=== PATIENT | female | born 1950 | race African-American/Black ===

== ENCOUNTER → 2020-08-09 10:17 | Outpatient (BNVA) | payer MEDICARE, SELFPAY | PROVIDERS: PCP Physician Assistant; Visit Provider Anesthesiology | DX: M96.1 Postlaminectomy syndrome, not elsewhere classified (principal); M46.1 Sacroiliitis, not elsewhere classified | CPT/HCPCS: 99204 ==

== ENCOUNTER 2020-09-01 09:36 | Outpatient (REF) | payer MEDICARE, SELFPAY ==
--- NOTE | 2020-09-01 09:53 | XR_ITS ---
EXAMINATION: XR FEMUR, RIGHT CLINICAL INFORMATION: 69-year-old female patient with other specified disorder of bone, thigh. M89.8x5 COMPARISON: None recent TECHNIQUE: AP and lateral views of the right femur were obtained. 4 exposures. FINDINGS: The bones and soft tissues are normal. No fracture. No osseous lesions. There is chondrocalcinosis in the hip and knee joints. Scattered vascular calcifications are present. XR/XR femur RT 2V IMPRESSION: Chondrocalcinosis.
== END 2020-09-01 09:37 | disposition home or self-care (01) ==
LOC: HO.XRAY 09:36
PROVIDERS: PCP Physician Assistant; Visit Provider Physician Assistant
DX: M25.551 Pain in right hip (principal); M89.8X5 Other specified disorders of bone, thigh; G89.29 Other chronic pain
CPT/HCPCS: 73552

== ENCOUNTER 2020-09-22 10:46 | Outpatient (REF) | payer MEDICARE, SELFPAY ==
[2020-09-22 11:53] LABS: Erythrocyte Sedimentation Rate 4 MM/HR (0-20)
[2020-09-24 08:52] LABS: Syphilis Screen Nonreactive (Nonreactive)
[2020-09-24 09:56] LABS: Vitamin B12 516 pg/mL (200-900)
== END 2020-09-22 10:47 | disposition home or self-care (01) ==
LOC: HO.LAB 10:46
PROVIDERS: PCP Physician Assistant; Visit Provider Psychiatry & Neurology Neurology
DX: G93.40 Encephalopathy, unspecified (principal)
CPT/HCPCS: 36415; 82607; 85652; 86780

== ENCOUNTER 2020-09-25 06:59 | Outpatient (REF) | payer MEDICARE, SELFPAY ==
--- NOTE | 2020-09-25 07:32 | FL_ITS ---
EXAMINATION: XR FLUOROSCOPY WITH IMAGES CLINICAL INFORMATION: Sacroiliitis COMPARISON: None. TECHNIQUE: Fluoroscopy performed by Lena De Guzman Fluoroscopy time: 0.1 minutes DAP: 0.8 Gycm2 Images: 1 FINDINGS: Image demonstrates needle placement over the right inferior sacroiliac joint. There are postsurgical changes to the visualized lower lumbar spine. FL/FL guidance in treatment room IMPRESSION: Fluoroscopy guidance for right sacroiliac joint injection.
== END 2020-09-25 07:00 | disposition home or self-care (01) ==
LOC: HO.RADIR 06:59
PROVIDERS: Visit Provider Anesthesiology
DX: M46.1 Sacroiliitis, not elsewhere classified (principal); M96.1 Postlaminectomy syndrome, not elsewhere classified
CPT/HCPCS: 27096; J3300; Q9967

== ENCOUNTER 2020-10-03 10:23 | Outpatient (REF) | payer MEDICARE, SELFPAY ==
--- NOTE | 2020-10-03 09:40 | MR_ITS ---
EXAMINATION: MR BRAIN WITHOUT CONTRAST CLINICAL INFORMATION: Encephalopathy. COMPARISON: CT head from 08/09/2009. TECHNIQUE: MRI of the brain was obtained using routine sequences without contrast. FINDINGS: No focal restricted diffusion is demonstrated to suggest acute or subacute cerebral ischemia. No evidence of acute hemorrhagic products on heme-sensitive imaging. Punctate foci of susceptibility artifact within the left thalamus and left occipital lobe consistent with chronic petechial microhemorrhage. Scattered periventricular and deep white matter T2 FLAIR hyperintensities consistent with moderate underlying microangiopathy. Proportional prominence of the ventricles and sulcal spaces without evidence of obstructive hydrocephalus. No abnormal mass effect. No midline shift. Normal appearance of the pituitary gland. No abnormalities of the posterior fossa with normal appearance of the brainstem and cerebellum. Normal positioning of the cerebellar tonsils. Normal arterial and venous vascular flow voids are present. Normal, homogeneous marrow signal. Partially visualized anterior fusion of C5-C6. No signal abnormalities within the paranasal sinuses or mastoids. Chronic mild prominence of the adenoids. Bilateral lens extractions. MR/MR head/brain wo con IMPRESSION: 1. No acute intracranial abnormalities. 2. Moderate underlying microangiopathy and generalized cerebral volume loss.
== END 2020-10-03 10:24 | disposition home or self-care (01) ==
LOC: HO.MRI 10:23
PROVIDERS: Visit Provider Psychiatry & Neurology Neurology
DX: G93.40 Encephalopathy, unspecified (principal)
CPT/HCPCS: 70551

== ENCOUNTER → 2020-10-31 11:59 | Outpatient (BNVA) | payer MEDICARE, SELFPAY | PROVIDERS: PCP Physician Assistant; Visit Provider Anesthesiology | DX: M17.11 Unilateral primary osteoarthritis, right knee (principal); M96.1 Postlaminectomy syndrome, not elsewhere classified; M46.1 Sacroiliitis, not elsewhere classified | CPT/HCPCS: 99212 ==

== ENCOUNTER 2020-11-01 12:07 | Outpatient (REF) | payer MEDICARE, SELFPAY | END 2020-11-01 12:08 | disposition home or self-care (01) | LOC: HO.LAB 12:07 | PROVIDERS: PCP Physician Assistant; Visit Provider Internal Medicine | DX: Z20.822 Contact with and (suspected) exposure to COVID-19 (principal) | CPT/HCPCS: 36415; C9803; U0003 ==

== ENCOUNTER 2020-12-04 09:28 | Outpatient (REF) | payer MEDICARE, SELFPAY | END 2020-12-04 09:29 | disposition home or self-care (01) | LOC: HO.MRI 09:28 | PROVIDERS: Visit Provider Physician Assistant | DX: M54.16 Radiculopathy, lumbar region (principal) | CPT/HCPCS: 72148 ==

== ENCOUNTER 2020-12-24 08:08 | Outpatient (REF) | payer MEDICARE, SELFPAY ==
--- NOTE | ~2020-12-24 | US_ITS ---
EXAMINATION: US ABDOMEN AORTA CLINICAL INFORMATION: AAA. COMPARISON: None. TECHNIQUE: Routine transabdominal imaging of the abdominal ultrasound is performed. FINDINGS: The proximal abdominal aorta atherosclerotic plaque with shadowing in the proximal abdominal aorta. Proximal abdominal aorta measures 2.3 x 2.6 cm in AP and transverse dimension. Mid abdominal aorta measures 2.4 x 2.4 cm in AP and transverse dimension. Distal abdominal aorta measures 2.6 x 2.6 cm in AP and transverse dimension. Peak systolic velocity measures 65 cm/second. The right common iliac artery measures 1.0 cm measures 1.0 cm in AP and transverse dimension. The left common iliac artery measures 1.3 x 1.1 cm in AP and transverse dimension. US/US abdominal aortic aneurysm IMPRESSION: Mild aneurysmal dilatation of distal abdominal aorta measuring 2.6 cm. Hard atherosclerotic plaque seen in the proximal abdominal aorta.
== END 2020-12-24 08:09 | disposition home or self-care (01) ==
LOC: HO.US 08:08
PROVIDERS: PCP Physician Assistant; Visit Provider Physician Assistant
DX: I71.4 Abdominal aortic aneurysm, without rupture (principal)
CPT/HCPCS: 76706

== ENCOUNTER 2023-02-03 06:21 | Outpatient (REF) | payer OTHER, SELFPAY ==
[2023-02-03 07:59] LABS: Hematocrit 38.3 % (37.0-47.0); Hemoglobin 11.5 g/dl (12.0-16.0); Mean Corpuscular Hemoglobin 23.5 pg (27.0-33.0); Mean Corpuscular Volume 78.3 fL (80.0-98.0); Mean Platelet Volume 10.4 fL (9.4-12.3); Platelet Count 214 X10*3/uL (160-400); Red Blood Count 4.89 X10*6/uL (4.20-5.50); Red Cell Distribution Width 15.5 % (11.0-16.0)
[2023-02-03 08:22] LABS: Estimated Average Glucose 120 mg/dL; Hemoglobin A1c % 5.8 %
[2023-02-03 08:37] LABS: Alanine Aminotransferase 25 U/L (0-31); Alkaline Phosphatase 90 U/L (39-117); Anion Gap 12 (12-20); Aspartate Amino Transferase 29 U/L (5-31); Bilirubin Direct 0.1 mg/dL (0.0-0.5); Bilirubin Total 0.4 mg/dL (0.0-1.0); Blood Urea Nitrogen 13 mg/dL (9-16); Calcium 9.1 mg/dL (8.4-10.2); Carbon Dioxide 28 mmol/L (22-29); Chloride 106 mmol/L (96-108); Cholesterol 207 mg/dL; Estimated Glomerular Filt Rate > 60; Glucose Fasting 84 mg/dL (60-99); HDL Cholesterol 55 mg/dL; LDL Cholesterol Calculated 131 mg/dl; Potassium 4.1 mmol/L (3.3-5.1); Sodium 142 mmol/L (135-145); Triglycerides 108 mg/dL
[2023-02-03 08:54] LABS: TSH reflex Free T4 1.31 uIU/mL (0.32-4.0)
[2023-02-05 19:53] LABS: TS Negative Control Passed; TS Panel A 0; TS Panel B 1; TS Positive Control Passed; TSpotTB Negative (Negative)
== END 2023-02-03 06:22 | disposition home or self-care (01) ==
LOC: HO.LAB 06:21
PROVIDERS: PCP Physician Assistant; Visit Provider Physician Assistant
DX: Z13.1 Encounter for screening for diabetes mellitus (principal); Z11.1 Encounter for screening for respiratory tuberculosis; I10 Essential (primary) hypertension; R73.03 Prediabetes
CPT/HCPCS: 36415; 80053; 80061; 80076; 82248; 83036; 84443; 85027; 86481

== ENCOUNTER 2023-03-31 06:27 | Outpatient (REF) | payer OTHER, SELFPAY ==
[2023-03-31 07:33] LABS: Hematocrit 41.5 % (37.0-47.0); Hemoglobin 12.4 g/dl (12.0-16.0); Mean Corpuscular HGB Conc 29.9 g/dl (31.0-35.0); Mean Corpuscular Hemoglobin 23.6 pg (27.0-33.0); Mean Platelet Volume 10.2 fL (9.4-12.3); Platelet Count 205 X10*3/uL (160-400); Red Blood Count 5.25 X10*6/uL (4.20-5.50); Red Cell Distribution Width 14.5 % (11.0-16.0); White Blood Count 6.1 X10*3/uL (4.8-10.8)
[2023-03-31 08:11] LABS: Anion Gap 14 (12-20); Blood Urea Nitrogen 16 mg/dL (9-16); Calcium 9.9 mg/dL (8.4-10.2); Carbon Dioxide 28 mmol/L (22-29); Chloride 106 mmol/L (96-108); Estimated Glomerular Filt Rate > 60; Glucose Random 96 mg/dL (60-115); Iron 100 mcg/dL (30-160); Percent Iron Saturation 29 % (15-50); Potassium 4.8 mmol/L (3.3-5.1); Sodium 143 mmol/L (135-145); Total Iron Binding Capacity 342 mcg/dL (228-428); Unsaturated Iron Binding 242 ug/dL
[2023-03-31 08:30] LABS: TSH reflex Free T4 0.95 uIU/mL (0.32-4.0)
[2023-03-31 09:40] LABS: Creatinine Urine 24.72 mg/dL; Microalbum/Creatinine Ratio Ur 109.2 ug/mg cr
== END 2023-03-31 06:28 | disposition home or self-care (01) ==
LOC: HO.LAB 06:27
PROVIDERS: PCP Physician Assistant; Visit Provider Physician Assistant
DX: D50.9 Iron deficiency anemia, unspecified (principal); I10 Essential (primary) hypertension
CPT/HCPCS: 36415; 80048; 82043; 83540; 84443; 85027

== ENCOUNTER 2023-06-17 11:35 | Outpatient (AMB) | payer OTHER, SELFPAY ==
[2023-06-17 11:36] VITALS: BP 132/80; PULSE 92; O2SAT 97; BMI 21.9
--- NOTE | 2023-06-17 11:36 | A.OFFPC_ITS ---
Vital Signs 06/17/23 11:36 Height 5 ft 1 in Weight 116 lb BMI 21.9 BP 132/80 Blood Pressure Location Lt brachial Position Sitting Pulse 92 Pulse Source Pulse Oximeter Temp Source Skin Pulse Oximetry (%) 97 Oxygen Delivery Method Room Air Intake Visit Reasons: f/u not eating Sales Management Intern Required: Yes Sales Management Intern Language: French Allergies yellow dye [Yellow Dye] Allergy (Severe, Verified 06/17/23 11:46) YELLOW #5 THROAT CLOSES ibuprofen [From Motrin] Allergy (Unknown, Verified 06/17/23 11:46) SWELL THROAT [facility] #[id number] Allergy (Severe, Uncoded 06/17/23 11:46) ORANGE #8 DYE THROAT CLOSES Medication List - Last Reconciled 06/17/23 by PAUL Stauffer acetaminophen ER (Mapap Arthritis Pain) 650 mg PO Q12H ciclopirox 0.77% 1 appl topical BID 4 weeks diclofenac sodium 75 mg PO BID PRN diclofenac sodium 1% 2 grams topical QID 30 days famotidine 20 mg PO BEDTIME 30 days food supplemt, lactose-reduced (Ensure Complete) 1 ea PO DAILY PRN 30 days gabapentin 800 mg PO BID 90 days hydroxyzine HCl 25 mg PO BID melatonin 10 mg PO BEDTIME 90 days mirtazapine 30 mg PO BEDTIME 90 days nystatin 1 appl topical TID oxybutynin chloride ER 5 mg PO DAILY quetiapine 25 mg PO BID 90 days tramadol 50 mg PO BID PRN 7 days Tobacco use date assessed: 06/17/23 Fall risk assessment: No Falls in past year Last assessed Fall Risk: 06/17/23 HPI f/u not eating HPI Details Patient is a 72-year-old female who presents today accompanied by her son for not eating for the past 1 month or even more than that. Patient of LUIS EFRNANDO German. medical history significant for anxiety, osteoarthritis, hypertension, GERD, malnutrition, insomnia, dementia-followed by Neurology among others. Son reports that patient does not want to eat, reports patient does not have appetite, reports that patient throws food and spits out foot. Son reports giving his mother ensure and she drinks usually all of it. Patient goes to daycare. Son reports that daycare told him that she eats there, although son does not think so. Blood work 03/2023 with no acute findings. Patient with intermittent diarrhea. Son reports that mother used to be 134 lb, and today she is 116 lb. Patient is a French-speaking and Marielos was helping with interpretation. They requesting prescription for Ensure.. [facility] Medical History Aneurysm of infrarenal abdominal aorta Onychomycosis Osteoarthritis of right knee Postlaminectomy syndrome Surgical History H/O arthroscopy of shoulder H/O cervical spine surgery H/O lumbosacral spine surgery No pertinent past surgical history Family History Father No problems noted. Mother No problems noted. Social History Housing: House Alcohol intake: never Patient Tobacco Use Status: Former Tobacco user Quit Date: 2021 Cigarettes Per Day: 5 e-Cigarette/Vaping Use: Never Used Second Hand Smoke Exposure: No service: No Current occupational status: disabled Cognitive needs: Yes (cane, walker) Hearing needs: No Vision needs: Yes (glasses) Questionnaire Thrive Questionnaire Date Thrive assessed: 01/19/23 AUDIT C Alcohol Use Questionnaire (AUDIT-C) 1. How often do you have a drink containing alcohol?: Never 3. How often do you have six or more drinks on one occasion?: Never Total Score: 0 Score Reviewed/Action Taken: No JERMAINE-7 AMB Questionnaire JERMAINE-7 Date JERMAINE - 7 assessed: 01/19/23 Source: Developed by Drs. Valentin Khan, Camryn Parry, Teo Quiles and colleagues, with an educational ebonie from [employer]. Review of Systems Const Unobtainable due to mental condition and Unobtainable due to mental status GI Reports diarrhea (Intermittent per son) Physical exam (Primary Care) Vital Signs: Last Vital Signs Pulse 92 06/17/23 11:36 BP 132/80 06/17/23 11:36 Pulse Ox 97 06/17/23 11:36 Oxygen Delivery Method Room Air 06/17/23 11:36 BMI result Body Mass Index 21.9 Tobacco/Smoking Status: Tobacco use Status Tobacco use date assessed 06/17/23 06/17/23 11:37 Patient Tobacco Use Status Former Tobacco user 06/17/23 11:37 e-Cigarette/Vaping Use Never Used 06/17/23 11:37 Thrive Assessment: Date of Thrive Assessment Date Thrive assessed 01/19/23 06/17/23 11:37 Const General: cooperative and no acute distress Orientation/consciousness: oriented to person HENMT Head: Yes normocephalic and Yes atraumatic Mouth: oropharynx normal and moist mucous membranes Throat: Yes posterior oropharynx normal Eyes General: appearance normal, both eyes and all related structures Neck Neck: Yes normal visual inspection, Yes full ROM and Yes no lymphadenopathy Resp Effort & Inspection: normal respiratory effort and able to speak in complete sentences Auscultation: clear to auscultation bilaterally, no crackles, no rales, no rhonchi and no wheezes Cardio Rate: regular rate Rhythm: regular rhythm Heart sounds: S1 normal heart sound present and S2 normal heart sound present GI Palpation (GI): Soft to palpation, not firm, nontender, no guarding, not rigid and no hepatosplenomegaly Auscultation: normal bowel sounds Skin General skin exam: no rashes or lesions noted Neuro General: oriented to person Extrem General: Yes full ROM and No edema Assessment and Plan Assessment & Plan (1) Decreased appetite: Code(s): R63.0 - Anorexia Plan: Patient with decreased appetite and spitting out food for the past some time worse in the past month. Physical exam with no acute findings. Blood work 03/2023 with no acute findings. Will provide with Ensure prescription daily. Keep appointment with PCP as scheduled or follow-up sooner as needed. Agreed with the plan. Medications: New food supplemt, lactose-reduced (Ensure oral liquid) 1 ea PO DAILY 30 days 5,688 mL 1RF R63.0 - Anorexia Coding Level of Care Code Est Pt Level 3 (33624) Diagnoses Decreased appetite R63.0
== END 2023-06-17 12:03 | disposition home or self-care (01) ==
PROVIDERS: PCP Physician Assistant; Visit Provider Nurse Practitioner Family
DX: R63.0 Anorexia (principal)
CPT/HCPCS: 99213

== ENCOUNTER 2023-07-22 08:46 | Outpatient (AMB) | payer MEDICARE, SELFPAY ==
[2023-07-22 09:06] VITALS: BP 182/88; PULSE 80; RESP 17; O2SAT 98; BMI 21.3
--- NOTE | 2023-07-22 09:06 | A.OFFPC_ITS ---
Vital Signs 07/22/23 09:06 07/22/23 09:31 Height 5 ft 1 in Weight 113 lb BMI 21.3 BP 182/88 H 150/78 H Blood Pressure Location Lt brachial Position Sitting Respiration 17 Pulse 80 Pulse Source Pulse Oximeter Pulse Oximetry (%) 98 Oxygen Delivery Method Room Air Intake Visit Reasons: f/u HTN Intake Note: Patient is here to follow up on HTN. Pt has an ongoing back and abdominal pain low appetite and chronic diarrhea for two months. Son is requesting Ensure lactose free. Lithographed Plate Inspector Required: Yes Lithographed Plate Inspector Language: Luxembourgish Accompanied by: Son Allergies yellow dye [Yellow Dye] Allergy (Severe, Verified 07/22/23 09:18) YELLOW #5 THROAT CLOSES ibuprofen [From Motrin] Allergy (Unknown, Verified 07/22/23 09:18) SWELL THROAT [facility] #[id number] Allergy (Severe, Uncoded 07/22/23 09:09) ORANGE #8 DYE THROAT CLOSES Medication List - Last Reconciled 07/22/23 by Jose German PA-C acetaminophen ER (Mapap Arthritis Pain) 650 mg PO Q12H ciclopirox 0.77% 1 appl topical BID 4 weeks diclofenac sodium 75 mg PO BID PRN diclofenac sodium 1% 2 grams topical QID 30 days famotidine 20 mg PO BEDTIME 30 days food supplemt, lactose-reduced (Ensure oral liquid) 1 ea PO DAILY 30 days food supplemt, lactose-reduced (Ensure Complete) 1 ea PO DAILY PRN 30 days gabapentin 800 mg PO BID 90 days hydroxyzine HCl 25 mg PO BID melatonin 10 mg PO BEDTIME 90 days mirtazapine 30 mg PO BEDTIME 90 days nystatin 1 appl topical TID oxybutynin chloride ER 5 mg PO DAILY quetiapine 25 mg PO BID 90 days tramadol 50 mg PO BID PRN 7 days Tobacco use date assessed: 06/17/23 Fall risk assessment: No Falls in past year Last assessed Fall Risk: 07/22/23 Dental Screening Dental Screen Date: 07/22/23 Did you have a dental visit in the last 12 months?: Yes Did you have a dental problem in the last 6 months where you did not have access to dental care?: No Was dental information given to patient?: Patient has dentist HPI f/u HTN HPI Details Patient is a 72-year-old female here today for follow-up visit.? Patient has a past medical history significant for lumbar disc disease, infrarenal abdominal aortic aneurysm,? hypertension, smoker mild cognitive impairment. Today presents with her son Concern--> reports having water diarrhea over the last 6 weeks. Has noted some weight loss. Reports having dark stools and some epigastric pain. Has been using loperamide without much relief of her diarrhea. PLAN: Will start PPI therapy and stop NSAID. Send for labs and urine. CHRONIC MEDICAL CONDITIONS--> . Dementia:? Patient has followed up with Neurology was started on antidepressant medication..? Currently lives at home with her sons whom take care of her. Has started using melatonin 10 mg at night with good effect on inducing sleep. Lumbar spine pain:? Has chronic lumbar spine pain, has history of lumbar repair with hardware. ? Patient's most recent MRI of lumbar spine showing multilevel lumbar disc disease and incidental finding of an infrarenal abdominal aortic aneurysm. Osteoarthritis:? Continues with Tylenol arthritis for her arthritic pain.? Does use tramadol 50 mg on a p.r.n. basis for moderate to severe pain. Again stop NSAID due to signs symptoms of epigastric discomfort PFSH Medical History Aneurysm of infrarenal abdominal aorta Onychomycosis Osteoarthritis of right knee Postlaminectomy syndrome Surgical History H/O arthroscopy of shoulder H/O lumbosacral spine surgery H/O cervical spine surgery No pertinent past surgical history Family History Father No problems noted. Mother No problems noted. Social History Housing: House Alcohol intake: never Patient Tobacco Use Status: Former Tobacco user Quit Date: 2021 Cigarettes Per Day: 5 e-Cigarette/Vaping Use: Never Used Second Hand Smoke Exposure: No service: No Current occupational status: disabled Cognitive needs: Yes (cane, walker) Hearing needs: No Vision needs: Yes (glasses) Questionnaire Thrive Questionnaire Date Thrive assessed: 01/19/23 JERMAINE-7 AMB Questionnaire JERMAINE-7 Date JERMAINE - 7 assessed: 01/19/23 Source: Developed by Drs. Valentin Khan, Camryn Parry, Teo Quiles and colleagues, with an educational ebonie from [employer]. Review of Systems Const Denies headache(s) Eyes Denies loss of vision ENT Denies vertigo, Denies dizziness, Denies headache(s) and Denies sore throat Card Denies chest pain, Denies leg edema and Denies lightheadedness Resp Denies cough, Denies hemoptysis and Denies wheezing GI Reports abdominal pain, Reports melena, Reports diarrhea and Reports loose stools Denies urinary frequency, Denies dysuria and Denies urinary urgency Musc Denies arthralgias, Denies joint swelling, Denies numbness and Denies tingling Neuro Denies Abnormal speech present, Denies behavioral changes, Denies vertigo, Denies dizziness, Denies headache(s), Denies loss of vision, Denies memory loss, Denies numbness and Denies tingling Psych Denies anxiety, Denies behavioral changes, Denies depression, Denies memory loss and Denies panic attacks [place]/Lymph Denies easy bleeding and Denies easy bruising Aller/Immun Denies wheezing Physical exam (Primary Care) Vital Signs: Last Vital Signs Pulse 80 07/22/23 09:06 Resp 17 07/22/23 09:06 BP 150/78 H 07/22/23 09:31 Pulse Ox 98 07/22/23 09:06 Oxygen Delivery Method Room Air 07/22/23 09:06 BMI result Body Mass Index 21.3 Tobacco/Smoking Status: Tobacco use Status Tobacco use date assessed 06/17/23 07/22/23 09:10 Patient Tobacco Use Status Former Tobacco user 07/22/23 09:10 e-Cigarette/Vaping Use Never Used 07/22/23 09:10 Thrive Assessment: Date of Thrive Assessment Date Thrive assessed 01/19/23 07/22/23 09:10 Const Other: Noted some weight loss since last office visit General: healthy appearing, no acute distress, alert and awake Nutritional Appearance: well nourished Orientation/consciousness: oriented to person, oriented to place and oriented to time HENMT Ears: TM's normal bilaterally General nose exam: Normal nasal mucous membranes and turbinates present Eyes Conjunctivae: conjunctivae normal Sclerae: sclerae normal Pupils: Equal, round and reactive pupils present Neck Neck: Yes no lymphadenopathy and Yes no JVD Thyroid: Thyroid normal Carotids: no bruits Resp Effort & Inspection: normal respiratory effort and not tachypneic Auscultation: no crackles, no rales, no rhonchi and no wheezes Cardio Rate: regular rate Rhythm: regular rhythm Heart sounds: no murmurs and normal S1 and S2 GI Palpation (GI): Tenderness to palpation present (GI) in the epigastrum Auscultation: normal bowel sounds Skin General skin exam: no rashes or lesions noted and dry skin Neuro General: oriented to person, oriented to place and oriented to time Cranial nerves: Yes Equal, round and reactive pupils present Speech: No Abnormal speech present Gait exam (Neuro): Normal gait present Motor exam (neuro): no tremor noted Extrem Right upper extremity: full ROM Left upper extremity: full ROM Right lower extremity: full ROM; no edema Left lower extremity: full ROM; no edema Psych Mental Status: mental status grossly normal Speech and movement: Normal speech and movement present Affect: normal affect Attitude: cooperative Thought process: Normal thought process present Office Procedures Flu Questionnaire Does the patient have a severe egg allergy?: No Does the patient have severe life threatening allergies?: No Does the patient have a fever or illness today?: No Has the patient ever had Guillain-[place] Syndrome?: No Has the patient ever had any past reaction to a flu shot?: No Immunizations flu vacc [id number] 6mos up(PF) 60 mcg(15 mcgx4)/0.5 mL IM syringe Performing Provider: Jose German PA-C Performing Location: [facility] Administered by: JUANCHO Whitmore on 07/22/23 09:40 Dose Route Admin Location Dispensed Lot Number Expiration Date NDC [employer] Architect 0.5 mL IM Left Deltoid 0.5 mL [id number] 04/17/24 42809-868-80 [employer] VIS Given Date VIS Provided VIS Publication Date 07/22/23 Single Vaccine 21 Eligibility Eligibility Date Funding Source Not [facility] Eligible 07/22/23 Private Assessment and Plan Assessment & Plan (1) Dark stools: Code(s): R19.5 - Other fecal abnormalities Plan: Reports a 6 week history of diarrhea and dark stools. Has been having epigastric pain, Concerns for upper GI bleed due to ulcer. Advised to discontinue diclofenac. Will get nonfasting labs. Will start her on omeprazole and refer to gastro for possible endoscopy. (2) Diarrhea: Code(s): R19.7 - Diarrhea, unspecified Qualifiers: Diarrhea type: unspecified type Qualified Code(s): R19.7 - Diarrhea, unspecified (3) GERD (gastroesophageal reflux disease): Code(s): K21.9 - Gastro-esophageal reflux disease without esophagitis Qualifiers: Esophagitis presence: without esophagitis Qualified Code(s): K21.9 - Gastro-esophageal reflux disease without esophagitis Plan: Will start on PPI therapy due to concerns of peptic ulcer disease. Again advised to stop NSAID. (4) Epigastric pain: Code(s): R10.13 - Epigastric pain Orders: Orders Complete Blood Count no Diff Today R10.13 - Epigastric pain Influenza [id number] Immunization Today Z23 - Encounter for immunization IRON PROFILE Today D50.9 - Iron deficiency anemia, unspecified, R10.13 - Ep igastric pain Ferritin Today R10.13 - Epigastric pain UA CC w/rflx Micro + Cult Today R19.7 - Diarrhea, unspecified, R30.0 - Dysuria Basic Metabolic Panel Today R19.7 - Diarrhea, unspecified Lipase Today R19.7 - Diarrhea, unspecified Referrals Gastroenterology Referral R10.13 - Epigastric pain, R19.5 - Other fecal abnormalities, R19.7 - Diarrhea, unspecified Medications: New omeprazole 20 mg PO DAILY 90 caps 1RF 90 days R19.5 - Other fecal abnormalities Refilled food supplemt, lactose-reduced (Ensure oral liquid) 1 ea PO DAILY 5,688 mL 1RF 30 days R63.0 - Anorexia Discontinued famotidine Discontinued Reason: Doctor's Order 20 mg PO BEDTIME 30 days 90 tabs 3RF K21.9 - Gastro-esophageal reflux disease without esophagitis diclofenac sodium Discontinued Reason: Doctor's Order 75 mg PO BID PRN 60 tabs 3RF for pain M19.90 - Unspecified osteoarthritis, unspecified site Coding Level of Care Code Est Pt Level 4 (32942) Diagnoses Dark stools R19.5 Diarrhea, unspecified type R19.7 Diarrhea type: unspecified type Gastroesophageal reflux disease without esophagitis K21.9 Esophagitis presence: without esophagitis Epigastric pain R10.13
[2023-07-22 09:31] VITALS: BP 150/78
== END 2023-07-22 09:42 | disposition home or self-care (01) ==
PROVIDERS: Visit Provider Physician Assistant
DX: R19.5 Other fecal abnormalities (principal); R19.7 Diarrhea, unspecified; K21.9 Gastro-esophageal reflux disease without esophagitis; R10.13 Epigastric pain; Z23 Encounter for immunization
CPT/HCPCS: 90471; 90686; 99214

== ENCOUNTER 2023-07-22 09:58 | Outpatient (REF) | payer OTHER, SELFPAY ==
[2023-07-22 11:42] LABS: Hematocrit 34.8 % (37.0-47.0); Hemoglobin 10.6 g/dl (12.0-16.0); Mean Corpuscular HGB Conc 30.5 g/dl (31.0-35.0); Mean Corpuscular Hemoglobin 23.7 pg (27.0-33.0); Mean Corpuscular Volume 77.7 fL (80.0-98.0); Mean Platelet Volume 10.5 fL (9.4-12.3); Platelet Count 320 X10*3/uL (160-400); Red Blood Count 4.48 X10*6/uL (4.20-5.50); White Blood Count 7.1 X10*3/uL (4.8-10.8)
[2023-07-22 12:26] LABS: Anion Gap 13 (12-20); Blood Urea Nitrogen 10 mg/dL (9-16); Calcium 9.2 mg/dL (8.4-10.2); Carbon Dioxide 28 mmol/L (22-29); Chloride 106 mmol/L (96-108); Estimated Glomerular Filt Rate > 60; Glucose Random 85 mg/dL (60-115); Iron 36 mcg/dL (30-160); Lipase 5 U/L (8-78); Percent Iron Saturation 15 % (15-50); Potassium 3.5 mmol/L (3.3-5.1); Sodium 143 mmol/L (135-145); Total Iron Binding Capacity 233 mcg/dL (228-428); Unsaturated Iron Binding 197 ug/dL
[2023-07-22 12:36] LABS: Ferritin 73 ng/mL (10-250)
[2023-07-22 13:14] LABS: Appearance Urine Hazy; Color Urine Yellow; Glucose Urine UA Negative (Negative); Leukocyte Esterase Urine Moderate (2+) (Negative); Nitrite Urine Positive (Negative); UMIC TRIGGER UACC YES; Urine Blood Trace (Negative); Urine Ketones Negative (Negative); Urine Protein Negative (Neg-Trace)
[2023-07-22 13:21] LABS: Bacteria Urine 2+ (None Seen); RBC Urine 0-2 /HPF (0-2); UACC Culture Trigger YES
[2023-07-22 13:22] LABS: Hyaline Casts Urine 0-2 /LPF (0-2)
== END 2023-07-22 09:59 | disposition home or self-care (01) ==
LOC: HO.LAB 09:58
PROVIDERS: PCP Physician Assistant; Visit Provider Physician Assistant
DX: R19.7 Diarrhea, unspecified (principal); R10.13 Epigastric pain; D50.9 Iron deficiency anemia, unspecified
CPT/HCPCS: 36415; 80048; 81001; 81003; 82728; 83540; 83690; 85027; 87086; 87088; 87147; 87186

== ENCOUNTER 2023-08-25 08:25 | Outpatient (REF) | payer OTHER, SELFPAY ==
[2023-08-25 10:00] LABS: MANUAL DIFF FLAG NO
[2023-08-25 11:32] LABS: Basophils Percent Auto 0.3 % (0-2); Eosinophils Percent Auto 0.3 % (0-4); Hemoglobin 10.5 g/dl (12.0-16.0); Imm Gran Abs Auto 0.02 X10*3/uL (0.00-0.03); Imm Gran Pct Auto 0.3 % (0.0-0.4); Lymphocytes Absolute Auto 1.3 X10*3/uL (1.2-4.9); Lymphocytes Percent Auto 20.6 % (20-40); Mean Corpuscular Hemoglobin 23.7 pg (27.0-33.0); Mean Platelet Volume 11.1 fL (9.4-12.3); Monocytes Absolute Auto 0.4 X10*3/uL (0.1-1.2); Neutrophils Absolute Auto 4.5 x10*3/uL (2.0-8.3); Neutrophils Percent Auto 71.5 % (45-73); Platelet Count 265 X10*3/uL (160-400); Red Blood Count 4.43 X10*6/uL (4.20-5.50); Red Cell Distribution Width 14.7 % (11.0-16.0); White Blood Count 6.3 X10*3/uL (4.8-10.8)
[2023-08-25 11:58] LABS: Appearance Urine Clear; Color Urine Yellow; Glucose Urine UA Negative (Negative); Leukocyte Esterase Urine Trace (Negative); Nitrite Urine Negative (Negative); UMIC TRIGGER UACC YES; Urine Blood Negative (Negative); Urine Ketones Negative (Negative); Urine Protein Negative (Neg-Trace)
[2023-08-25 12:03] LABS: Bacteria Urine None Seen (None Seen); Hyaline Casts Urine 0-2 /LPF (0-2); RBC Urine 0-2 /HPF (0-2); Squamous Epithelial Cell Urine 0-2 /HPF (0-2); WBC Urine 0-5 /HPF (0-5)
[2023-08-25 12:19] LABS: Ferritin 40 ng/mL (10-250)
[2023-08-25 12:40] LABS: CDiff Gene PCR NEGATIVE (Negative)
[2023-08-25 14:11] LABS: Adenovirus F 40/41 Not Detected (Not Detect.); Astrovirus Not Detected (Not Detect.); Campylobacter Not Detected (Not Detect.); Cryptosporidium Not Detected (Not Detect.); Cyclospora cayetanensis Not Detected (Not Detect.); E. coli EAEC Not Detected (Not Detect.); E. coli EPEC Not Detected (Not Detect.); E. coli ETEC Not Detected (Not Detect.); E. coli STEC Not Detected (Not Detect.); Entamoeba histolytica Not Detected (Not Detect.); Giardia lamblia Not Detected (Not Detect.); Norovirus GI/GII Not Detected (Not Detect.); Plesiomonas shigelloides Not Detected (Not Detect.); Rotavirus A Not Detected (Not Detect.); Salmonella Not Detected (Not Detect.); Sapovirus Not Detected (Not Detect.); Shigella sp./EIEC Not Detected (Not Detect.); Vibrio Not Detected (Not Detect.); Vibrio Cholerae Not Detected (Not Detect.); Yersinia enterocolitica Not Detected (Not Detect.)
[2023-08-27 18:44] LABS: Transglutaminase IgA <1.0 U/mL
[2023-09-01 12:18] LABS: Endomysial IgA Antibody Negative (Negative)
== END 2023-08-25 08:26 | disposition home or self-care (01) ==
LOC: HO.LAB 08:25
PROVIDERS: PCP Physician Assistant; Visit Provider Physician Assistant
DX: K52.9 Noninfective gastroenteritis and colitis, unspecified (principal); D64.9 Anemia, unspecified; R10.13 Epigastric pain; R63.0 Anorexia; R30.0 Dysuria; Z78.9 Other specified health status; Z79.899 Other long term (current) drug therapy
CPT/HCPCS: 36415; 81001; 82728; 85025; 86231; 86364; 87493; 87507; 99202

== ENCOUNTER 2023-08-25 08:26 | Outpatient (AMB) | payer OTHER, SELFPAY ==
--- NOTE | 2023-08-25 08:36 | MHC.OFFVIS ---
Intake Vital Signs 08/25/23 08:38 08/25/23 09:23 Height 5 ft 1 in Weight 116 lb BMI 21.9 BP 190/92 H 152/81 H Blood Pressure Location Lt brachial Lt brachial Position Sitting Sitting Pulse 72 65 Intake Visit Reasons: Epigastric pains Intake Note: Patient new consult for Epigastric pain Patient cc: upper epigastric pain, and dark diarrhea, no appetite, and some swallowing problems on and off. Middle School Director Required: Yes Middle School Director Name: Lavon [id number] Accompanied by: Employee Allergies yellow dye [Yellow Dye] Allergy (Severe, Verified 08/25/23 08:35) YELLOW #5 THROAT CLOSES ibuprofen [From Motrin] Allergy (Unknown, Verified 08/25/23 08:35) SWELL THROAT [place] #[id number] Allergy (Severe, Uncoded 07/22/23 09:09) ORANGE #8 DYE THROAT CLOSES Medication List - Last Reconciled 08/25/23 by Jennifer Dhaliwal PA-C acetaminophen ER (Mapap Arthritis Pain) 650 mg PO Q12H ciclopirox 0.77% 1 appl topical BID 4 weeks diclofenac sodium 1% 2 grams topical QID 30 days food supplemt, lactose-reduced (Ensure oral liquid) 1 ea PO DAILY 30 days food supplemt, lactose-reduced (Ensure Complete) 1 ea PO DAILY PRN 30 days gabapentin 800 mg PO BID 90 days hydroxyzine HCl 25 mg PO BID melatonin 10 mg PO BEDTIME 90 days mirtazapine 30 mg PO BEDTIME 90 days nitrofurantoin monohyd/m-cryst 100 mg (Macrobid) 100 mg PO Q12H 5 days nystatin 1 appl topical TID omeprazole 20 mg PO DAILY 90 days oxybutynin chloride ER 5 mg PO DAILY quetiapine 25 mg PO BID 90 days tramadol 50 mg PO BID PRN 7 days HPI HPI Comments History of Present Illness Details A 72 y/o female here with DIL- and interpreter translator assisted ipad- also family member on phone+ Diarrhea- 4-6 times daily for about 3 months-sometimes her stool is dark, there has been no blood noted. omeprazole for abdominal pain and nausea -seem to improve symptoms- Appetite is fairly good DIL-speaks for her, however unsure if her history the to contact another family member by phone-the stool is foul She apparently puts things in her undergarments to include so yield TP, money, soiled undergarments-how many other items per DIL Abdominal discomfort when she urinates, She has no breathing difficulties, no complaints of chest pain, no vomiting, Reviewed medication list She has never had a colonoscopy- She has not had any fever or chills [facility] [place] Medical History Aneurysm of infrarenal abdominal aorta Onychomycosis Osteoarthritis of right knee Postlaminectomy syndrome Surgical History H/O arthroscopy of shoulder H/O lumbosacral spine surgery H/O cervical spine surgery No pertinent past surgical history Family History Father No problems noted. Mother No problems noted. Social History Housing: House Alcohol intake: never Patient Tobacco Use Status: Former Tobacco user Quit Date: 2021 Cigarettes Per Day: 5 e-Cigarette/Vaping Use: Never Used Second Hand Smoke Exposure: No service: No Current occupational status: disabled Cognitive needs: Yes (cane, walker) Hearing needs: No Vision needs: Yes (glasses) Review of Systems ENT Denies dizziness Card Denies chest pain and Denies dyspnea Resp Denies dyspnea GI Reports abdominal pain, Denies melena, Denies hematochezia, Reports diarrhea, Reports nausea and Denies vomiting Reports difficulty voiding and Reports dysuria Neuro Details: Nonverbal today Denies dizziness and Reports memory loss Psych Reports memory loss Physical Exam Vital Signs: Last Vital Signs Pulse 65 08/25/23 09:23 BP 152/81 H 08/25/23 09:23 BMI result Body Mass Index 21.9 Const General: comfortable Limitations: altered mental status Eyes Sclerae: sclerae normal Resp Effort & Inspection: normal respiratory effort Auscultation: clear to auscultation bilaterally, no rhonchi, no wheezes and diminished lung sounds Cardio Rate: regular rate Rhythm: regular rhythm Heart sounds: S1 normal heart sound present and S2 normal heart sound present GI Palpation (GI): Soft to palpation and Tenderness to palpation present (GI) (Mild,) periumbilically; with no rebound tenderness Auscultation: normal bowel sounds Extrem General: Yes full ROM Psych Attitude: cooperative Assessment & Plan Assessment & Plan (1) Poor historian: Comment: Very difficult- despite- interpreter translator/ fam member present and fam member by phone Code(s): Z78.9 - Other specified health status (2) Diarrhea: Comment: Reported as foul- Will get stool studies rule out C diff, Code(s): R19.7 - Diarrhea, unspecified Qualifiers: Diarrhea type: unspecified type Qualified Code(s): R19.7 - Diarrhea, unspecified (3) Decreased appetite: Comment: Somewhat difficult to assess Code(s): R63.0 - Anorexia (4) Chronic diarrhea: Comment: Will submit order for EGD colonoscopy however will check labs as well as stool studies for for further evaluation Code(s): K52.9 - Noninfective gastroenteritis and colitis, unspecified (5) Dysuria: Comment: DIL-forces to urinate, discomfort when years Code(s): R30.0 - Dysuria Plan: UA C&S Plan Labs Stool studies EGD colonoscopy Must get accurate medications list-denies anticoagulation or diabetes medications Orders: Orders Ferritin Today D64.9 - Anemia, unspecified CDiff Gene PCR Today R19.7 - Diarrhea, unspecified UA CC w/rflx Micro + Cult Today R19.7 - Diarrhea, unspecified, R30.0 - Dysuria Complete Blood Count Auto Diff Today K52.9 - Noninfective gastroenteritis and colitis, unspecified GI Panel Today R19.7 - Diarrhea, unspecified Transglutaminase IgA Today R19.7 - Diarrhea, unspecified Endomysial IgA rflx Titer Today K52.9 - Noninfective gastroenteritis and colitis, unspecified Patient Instructions: labs stool- urine EGD/colon DIL-will get accurate medication list Coding Level of Care Code New Pt Level 4 (05541) Diagnoses Poor historian Z78.9 Diarrhea, unspecified type R19.7 Diarrhea type: unspecified type Decreased appetite R63.0 Chronic diarrhea K52.9 Dysuria R30.0 Time Spent (min) 50 Comment [id number]- difficult, 2 family member, 1 via phone
[2023-08-25 08:38] VITALS: BP 190/92; PULSE 72; BMI 21.9
[2023-08-25 09:23] VITALS: BP 152/81; PULSE 65
== END 2023-08-25 09:29 | disposition home or self-care (01) ==
PROVIDERS: PCP Physician Assistant; Visit Provider Physician Assistant
DX: K52.9 Noninfective gastroenteritis and colitis, unspecified (principal); R63.0 Anorexia; R30.0 Dysuria
CPT/HCPCS: 99204

== ENCOUNTER → 2023-10-05 08:09 | Outpatient (BNVA) | payer OTHER, SELFPAY | PROVIDERS: PCP Physician Assistant; Visit Provider Physician Assistant | DX: K52.9 Noninfective gastroenteritis and colitis, unspecified (principal); D50.9 Iron deficiency anemia, unspecified; R63.4 Abnormal weight loss; I10 Essential (primary) hypertension; Z78.9 Other specified health status | CPT/HCPCS: 99212 ==

== ENCOUNTER 2023-10-05 08:10 | Outpatient (AMB) | payer OTHER, SELFPAY ==
--- NOTE | 2023-10-05 08:42 | A.OFFVIS_ITS ---
Intake Vital Signs 10/05/23 08:45 Height 5 ft 1 in Weight 110 lb BMI 20.8 BP 174/94 H Blood Pressure Location Lt brachial Position Sitting Pulse 77 Intake Visit Reasons: 6 week follow up Intake Note: Patient follow up Patient cc: abdominal pain, acid reflex, weight loss, some swallowing problems and diarrhea. Denies any other GI issues. Strategic Planning Analyst Required: Yes Strategic Planning Analyst Name: Kell [facility] Accompanied by: Family/Other Allergies yellow dye [Yellow Dye] Allergy (Severe, Verified 10/05/23 08:42) YELLOW #5 THROAT CLOSES ibuprofen [From Motrin] Allergy (Unknown, Verified 10/05/23 08:42) SWELL THROAT [place] #[id number] Allergy (Severe, Uncoded 07/22/23 09:09) ORANGE #8 DYE THROAT CLOSES Medication List - Last Reconciled 10/05/23 by Jennifer Dhaliwal PA-C acetaminophen ER (Mapap Arthritis Pain) 650 mg PO Q12H ciclopirox 0.77% 1 appl topical BID 4 weeks diclofenac sodium 1% 2 grams topical QID 30 days food supplemt, lactose-reduced (Ensure oral liquid) 1 ea PO DAILY 30 days food supplemt, lactose-reduced (Ensure Complete) 1 ea PO DAILY PRN 30 days gabapentin 800 mg PO BID 90 days hydroxyzine HCl 25 mg PO BID melatonin 10 mg PO BEDTIME 90 days mirtazapine 30 mg PO BEDTIME 90 days nitrofurantoin monohyd/m-cryst 100 mg (Macrobid) 100 mg PO Q12H 5 days nystatin 1 appl topical TID omeprazole 20 mg PO DAILY 90 days oxybutynin chloride ER 5 mg PO DAILY quetiapine 25 mg PO BID 90 days tramadol 50 mg PO BID PRN 7 days HPI HPI Comments History of Present Illness Details A 72 y/o female dementia, nonverbal, here with DIL- for chronic diarrhea- DIL states she is still having diarrhea and putting things between her legs- DIL says she saw a toy in the toilet after her last BM over the weekend. She is somewhat difficult to manage She attends a day program and then has a ASSEMBLER FITTER in the evening at her son's home where she resides Appetite is reported as good No other GI or general complaints [facility] Medical History (Updated 10/06/23 @ 13:26 by Jennifer Dhaliwal PA-C) Onychomycosis Aneurysm of infrarenal abdominal aorta Osteoarthritis of right knee Postlaminectomy syndrome Surgical History H/O arthroscopy of shoulder H/O lumbosacral spine surgery H/O cervical spine surgery No pertinent past surgical history Family History Father No problems noted. Mother No problems noted. Social History Housing: House Alcohol intake: never Patient Tobacco Use Status: Former Tobacco user Quit Date: 2021 Cigarettes Per Day: 5 e-Cigarette/Vaping Use: Never Used Second Hand Smoke Exposure: No service: No Current occupational status: disabled Cognitive needs: Yes (cane, walker) Hearing needs: No Vision needs: Yes (glasses) Review of Systems GI Denies abdominal pain, Denies hematochezia and Reports diarrhea Physical Exam Vital Signs: Last Vital Signs Pulse 77 10/05/23 08:45 BP 174/94 H 10/05/23 08:45 BMI result Body Mass Index 20.8 Results Reviewed Results Reviewed: stool test -= neg anemia Assessment & Plan Assessment & Plan (1) Chronic diarrhea: Comment: Previously submitted order for EGD colonoscopy Reviewed stool studies negative Celiac markers negative No hematochezia Code(s): K52.9 - Noninfective gastroenteritis and colitis, unspecified (2) Poor historian: Comment: 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 Very difficult- despite- solar sales associate- Code(s): Z78.9 - Other specified health status (3) Iron deficiency anemia: Code(s): D50.9 - Iron deficiency anemia, unspecified Qualifiers: Iron deficiency anemia type: unspecified iron deficiency Qualified Code(s): D50.9 - Iron deficiency anemia, unspecified Plan: Colonoscopy/EGD-may be difficult -CT for further eval (4) HTN (hypertension): Code(s): I10 - Essential (primary) hypertension Qualifiers: Hypertension type: essential hypertension Qualified Code(s): I10 - Essential (primary) hypertension Plan: DIL- to make appt to see pcp (5) Weight loss: Code(s): R63.4 - Abnormal weight loss Plan: Monitor calorie intake Plan See pcp- ? caretake/ HTN- As well PCP likely has better understanding of family dynamic- CT -abd/ pelvis-w/ IV/oral Orders: Orders CT abdomen pelvis w IV con 10/05/23 D50.9 - Iron deficiency anemia, unspecified, K52.9 - Noninfective gastroenteritis and colitis, unspecified, R19.5 - Other fecal abnormalities, R63.4 - Abnormal weight loss, Z78.9 - Other specified health status Medications: New barium sulfate 2%(w/v) (Readi-Cat 2) 450 mL PO DIRECTED 1 day 900 mL 0RF Patient Instructions: 72-year-old with dementia female -iron deficiency anemia, diarrhea CT IV oral contrast PCP- DIL will call today-discuss concerns Discussed concerns of patient's hfupegwu-nqpglqyfkne-nhf may need more assistance. Coding Level of Care Code Est Pt Level 4 (76362) Diagnoses Chronic diarrhea K52.9 Poor historian Z78.9 Iron deficiency anemia, unspecified iron deficiency anemia type D50.9 Iron deficiency anemia type: unspecified iron deficiency Essential hypertension I10 Hypertension type: essential hypertension Weight loss R63.4 Time Spent (min) 45 Comment Strategic Planning Analyst device, then in person solar sales associate
[2023-10-05 08:45] VITALS: BP 174/94; PULSE 77; BMI 20.8
== END 2023-10-05 11:10 | disposition home or self-care (01) ==
PROVIDERS: PCP Physician Assistant; Visit Provider Physician Assistant
DX: K52.9 Noninfective gastroenteritis and colitis, unspecified (principal); Z78.9 Other specified health status; D50.9 Iron deficiency anemia, unspecified; I10 Essential (primary) hypertension; R63.4 Abnormal weight loss
CPT/HCPCS: 99214

== ENCOUNTER 2023-12-07 09:23 | Outpatient (AMB) | payer OTHER, SELFPAY ==
[2023-12-07 09:30] VITALS: BP 146/82; PULSE 80; O2SAT 98; BMI 20.8
--- NOTE | 2023-12-07 09:30 | A.OFFPC_ITS ---
Vital Signs 12/07/23 09:30 Height 5 ft 1 in Weight 110 lb BMI 20.8 BP 146/82 H Blood Pressure Location Lt brachial Position Sitting Pulse 80 Pulse Source Pulse Oximeter Pulse Oximetry (%) 98 Oxygen Delivery Method Room Air Intake Visit Reasons: BP check per PCP. Intake Note: Pt has come in for a BP check following the G.I. appointment. The [id number] expressed concern that the patient has been experiencing difficulty sleeping for the past week. Brake Operator Helper Required: Yes Brake Operator Helper Language: Bulgarian Accompanied by: Miracle in law Allergies yellow dye [Yellow Dye] Allergy (Severe, Verified 12/07/23 09:46) YELLOW #5 THROAT CLOSES ibuprofen [From Motrin] Allergy (Unknown, Verified 12/07/23 09:46) SWELL THROAT [place] #[id number] Allergy (Severe, Uncoded 12/07/23 09:30) ORANGE #8 DYE THROAT CLOSES Medication List - Last Reconciled 12/07/23 by Jose German PA-C acetaminophen ER (Mapap Arthritis Pain) 650 mg PO Q12H barium sulfate 2%(w/v) (Readi-Cat 2) 450 mL PO DIRECTED 1 day ciclopirox 0.77% 1 appl topical BID 4 weeks diclofenac sodium 1% 2 grams topical QID 30 days food supplemt, lactose-reduced (Ensure oral liquid) 1 ea PO DAILY 30 days food supplemt, lactose-reduced (Ensure Complete) 1 ea PO DAILY PRN 30 days gabapentin 800 mg PO BID 90 days hydroxyzine HCl 25 mg PO BID melatonin 10 mg PO BEDTIME 90 days mirtazapine 30 mg PO BEDTIME 90 days nystatin 1 appl topical TID omeprazole 20 mg PO DAILY 90 days oxybutynin chloride ER 5 mg PO DAILY quetiapine 25 mg PO BID 90 days tramadol 50 mg PO BID PRN 7 days Tobacco use date assessed: 12/07/23 Fall risk assessment: No Falls in past year Last assessed Fall Risk: 12/07/23 Dental Screening Dental Screen Date: 12/07/23 Did you have a dental visit in the last 12 months?: No Did you have a dental problem in the last 6 months where you did not have access to dental care?: No Was dental information given to patient?: No HPI BP check per PCP. HPI Details Patient is a 73-year-old female here today for follow-up visit.? Patient has a past medical history significant for lumbar disc disease, infrarenal abdominal aortic aneurysm,? hypertension, smoker mild cognitive impairment. Today presents with her [id number]. Bulgarian-speaking only thus used a remote head of insight. Has been noted to have elevated blood pressure readings at other office visits. plan: Will start amlodipine for blood pressure control. Advised to monitor blood pressure at home will supply with paper Rx for blood pressure cuff CT. Concern--> has been difficulty with sleeping. Continues with the use of melatonin and hydroxyzine though isn't effective. Advised to take her Seroquel 2 tablets at night for sleep. CHRONIC MEDICAL CONDITIONS--> . Dementia:? Patient has followed up with Neurology was started on antidepressant medication..? Currently lives at home with her sons whom take care of her. Lumbar spine pain:? Has chronic lumbar spine pain, has history of lumbar repair with hardware. ? Patient's most recent MRI of lumbar spine showing multilevel lumbar disc disease and incidental finding of an infrarenal abdominal aortic aneurysm. Osteoarthritis:? Continues with Tylenol arthritis for her arthritic pain.? Does use tramadol 50 mg on a p.r.n. basis for moderate to severe pain. Again stop NSAID due to signs symptoms of epigastric discomfort [facility] Medical History Onychomycosis Aneurysm of infrarenal abdominal aorta Osteoarthritis of right knee Postlaminectomy syndrome Surgical History H/O arthroscopy of shoulder H/O lumbosacral spine surgery H/O cervical spine surgery No pertinent past surgical history Family History Father No problems noted. Mother No problems noted. Social History Housing: House Alcohol intake: never Patient Tobacco Use Status: Former Tobacco user Quit Date: 2021 Cigarettes Per Day: 5 e-Cigarette/Vaping Use: Never Used Second Hand Smoke Exposure: No service: No Current occupational status: disabled Cognitive needs: Yes (cane, walker) Hearing needs: No Vision needs: Yes (glasses) Questionnaire Thrive Questionnaire Date Thrive assessed: 01/19/23 JERMAINE-7 AMB Questionnaire JERMAINE-7 Date JERMAINE - 7 assessed: 01/19/23 Source: Developed by Drs. Valentin Khan, Camryn Parry, Teo Quiles and colleagues, with an educational ebonie from [employer]. Review of Systems Const Denies headache(s) Eyes Denies loss of vision ENT Denies vertigo, Denies dizziness, Denies headache(s) and Denies sore throat Card Denies chest pain, Denies leg edema and Denies lightheadedness Resp Denies cough, Denies hemoptysis and Denies wheezing GI Denies abdominal pain, Denies melena, Denies constipation, Denies diarrhea and Denies vomiting Denies urinary frequency, Denies dysuria and Denies urinary urgency Musc Denies arthralgias, Denies joint swelling, Denies numbness and Denies tingling Neuro Denies Abnormal speech present, Denies behavioral changes, Denies vertigo, Denies dizziness, Denies headache(s), Denies loss of vision, Denies memory loss, Denies numbness and Denies tingling Psych Denies anxiety, Denies behavioral changes, Denies depression, Denies memory loss and Denies panic attacks [place]/Lymph Denies easy bleeding and Denies easy bruising Aller/Immun Denies wheezing Physical exam (Primary Care) Vital Signs: Last Vital Signs Pulse 80 12/07/23 09:30 BP 146/82 H 12/07/23 09:30 Pulse Ox 98 12/07/23 09:30 Oxygen Delivery Method Room Air 12/07/23 09:30 BMI result Body Mass Index 20.8 Tobacco/Smoking Status: Tobacco use Status Tobacco use date assessed 12/07/23 12/07/23 09:31 Patient Tobacco Use Status Former Tobacco user 12/07/23 09:31 e-Cigarette/Vaping Use Never Used 12/07/23 09:31 Thrive Assessment: Date of Thrive Assessment Date Thrive assessed 01/19/23 12/07/23 09:31 Const General: healthy appearing, no acute distress, alert and awake Nutritional Appearance: well nourished Orientation/consciousness: oriented to person, oriented to place and oriented to time HENMT Ears: TM's normal bilaterally General nose exam: Normal nasal mucous membranes and turbinates present Eyes Conjunctivae: conjunctivae normal Sclerae: sclerae normal Pupils: Equal, round and reactive pupils present Neck Neck: Yes no lymphadenopathy and Yes no JVD Thyroid: Thyroid normal Carotids: no bruits Resp Effort & Inspection: normal respiratory effort and not tachypneic Auscultation: no crackles, no rales, no rhonchi and no wheezes Cardio Rate: regular rate Rhythm: regular rhythm Heart sounds: no murmurs and normal S1 and S2 GI Palpation (GI): Soft to palpation, nontender, no hepatomegaly and no splenomegaly Auscultation: normal bowel sounds Skin General skin exam: no rashes or lesions noted and dry skin Neuro General: oriented to person, oriented to place and oriented to time Cranial nerves: Yes Equal, round and reactive pupils present Speech: No Abnormal speech present Gait exam (Neuro): Normal gait present Motor exam (neuro): no tremor noted Extrem Right upper extremity: full ROM Left upper extremity: full ROM Right lower extremity: full ROM; no edema Left lower extremity: full ROM; no edema Psych Mental Status: mental status grossly normal Speech and movement: Normal speech and movement present Affect: normal affect Attitude: cooperative Thought process: Normal thought process present Assessment and Plan Assessment & Plan (1) HTN (hypertension): Code(s): I10 - Essential (primary) hypertension Qualifiers: Hypertension type: essential hypertension Qualified Code(s): I10 - Essential (primary) hypertension Plan: Patient's blood pressure acceptable elevated today in office. Will add on amlodipine for better blood pressure control.. Has been able to manage her blood pressure without medication. Goal blood pressure be below 140/90 (2) Dementia: Code(s): F03.90 - Unspecified dementia, unspecified severity, without behavioral disturbance, psychotic disturbance, mood disturbance, and anxiety Qualifiers: Alzheimer's disease onset: late onset Dementia behavioral or psychological symptom: with mood disturbance Dementia severity: moderate Dementia type: Alzheimer's Qualified Code(s): G30.1 - Alzheimer's disease with late onset; F02.B3 - Dementia in other diseases classified elsewhere, moderate, with mood disturbance Plan: Patient lives at home with her son whom takes care of her. (3) Postlaminectomy syndrome: Code(s): M96.1 - Postlaminectomy syndrome, not elsewhere classified Plan: Patient has a chronic history of lower lumbar spine pain. Has had surgery with hardware placement. Does use trazodone on a p.r.n. basis for pain. Continues with daily use Tylenol and gabapentin with decent relief of her pain. (4) Insomnia: Code(s): G47.00 - Insomnia, unspecified Qualifiers: Insomnia type: primary Qualified Code(s): F51.01 - Primary insomnia Plan: Chronically has trouble sleeping though has found a melatonin 10-15 mg before bed has been helpful. Advised to using her Seroquel 50 mg at night before bed to help sleep. Medications: New amlodipine 5 mg PO DAILY 30 days 30 tabs 3RF I10 - Essential (primary) hypertension miscellaneous medical supply (Blood Pressure Cuff) Take BP reading daily 1 ea 0RF I10 - Essential (primary) hypertension Refilled hydroxyzine HCl 25 mg PO BID 60 tabs 3RF F41.9 - Anxiety disorder, unspecified nystatin 1 appl topical TID 30 grams 0RF B37.2 - Candidiasis of skin and nail, L22 - Diaper dermatitis omeprazole 20 mg PO DAILY 90 days 90 caps 1RF R19.5 - Other fecal abnormalities melatonin 10 mg PO BEDTIME 90 days 90 tabs 2RF sleep F51.01 - Primary insomnia gabapentin 800 mg PO BID 90 days 180 tabs 2RF M54.16 - Radiculopathy, lumbar region mirtazapine 30 mg PO BEDTIME 90 days 90 tabs 2RF F51.01 - Primary insomnia quetiapine 25 mg PO BID 90 days 180 tabs 2RF F32.9 - Major depressive disorder, single episode, unspecified tramadol 50 mg PO BID 7 days PRN 14 tabs 0RF pain M54.16 - Radiculopathy, lumbar region Coding Level of Care Code Est Pt Level 4 (15637) Diagnoses Essential hypertension I10 Hypertension type: essential hypertension Moderate late onset Alzheimer's dementia with mood disturbance G30.1; F02.B3 Alzheimer's disease onset: late onset Dementia behavioral or psychological symptom: with mood disturbance Dementia severity: moderate Dementia type: Alzheimer's Postlaminectomy syndrome M96.1 Primary insomnia F51.01 Insomnia type: primary
== END 2023-12-07 11:21 | disposition home or self-care (01) ==
PROVIDERS: PCP Physician Assistant; Visit Provider Physician Assistant
DX: I10 Essential (primary) hypertension (principal); G30.1 Alzheimer's disease with late onset; F02.B3 Dementia in other diseases classified elsewhere, moderate, with mood disturbance; M96.1 Postlaminectomy syndrome, not elsewhere classified; F51.01 Primary insomnia
CPT/HCPCS: 99214

== ENCOUNTER 2024-03-23 06:11 | Outpatient (REF) | payer OTHER, SELFPAY ==
[2024-03-23 07:53] LABS: Hematocrit 37.7 % (37.0-47.0); Hemoglobin 11.8 g/dl (12.0-16.0); Mean Corpuscular HGB Conc 31.3 g/dl (31.0-35.0); Mean Corpuscular Volume 76.8 fL (80.0-98.0); Mean Platelet Volume 11.1 fL (9.4-12.3); Platelet Count 211 X10*3/uL (160-400); Red Blood Count 4.91 X10*6/uL (4.20-5.50); Red Cell Distribution Width 14.6 % (11.0-16.0); White Blood Count 5.9 X10*3/uL (4.8-10.8)
[2024-03-23 08:14] LABS: Alanine Aminotransferase 17 U/L (0-31); Albumin Level 4.1 g/dL (3.5-5.0); Alkaline Phosphatase 79 U/L (39-117); Anion Gap 14 (12-20); Aspartate Amino Transferase 17 U/L (5-31); Bilirubin Total 0.3 mg/dL (0.0-1.0); Blood Urea Nitrogen 16 mg/dL (9-16); Calcium 9.4 mg/dL (8.4-10.2); Carbon Dioxide 27 mmol/L (22-29); Chloride 104 mmol/L (96-108); Cholesterol 196 mg/dL (<200); Estimated Glomerular Filt Rate > 60; Glucose Fasting 94 mg/dL (60-99); HDL Cholesterol 66 mg/dL (>40); Iron 57 mcg/dL (30-160); LDL Cholesterol Calculated 116 mg/dL (<100); Percent Iron Saturation 18 % (15-50); Potassium 3.3 mmol/L (3.3-5.1); Sodium 142 mmol/L (135-145); Total Iron Binding Capacity 312 mcg/dL (228-428); Total Protein 7.7 g/dL (6.5-8.0); Triglycerides 70 mg/dL (<150); Unsaturated Iron Binding 255 ug/dL
[2024-03-23 08:20] LABS: Appearance Urine Clear; Color Urine Yellow; Glucose Urine UA Negative (Negative); Leukocyte Esterase Urine Small (1+) (Negative); Nitrite Urine Negative (Negative); PH 6.5 (5.0-9.0); Specific Gravity - Urine 1.015 (1.005-1.025); UMIC TRIGGER UACC YES; Urine Blood Negative (Negative); Urine Ketones Negative (Negative); Urine Protein 30 (1+) mg/dL (Neg-Trace)
[2024-03-23 08:46] LABS: Bacteria Urine None Seen (None Seen); Hyaline Casts Urine 0-2 /LPF (0-2); RBC Urine 0-2 /HPF (0-2); UACC Culture Trigger YES; WBC Urine 0-5 /HPF (0-5)
[2024-03-23 09:00] LABS: Creatinine Urine 58.68 mg/dL; Microalbum/Creatinine Ratio Ur 286.2 ug/mg cr (<30)
[2024-03-26 17:43] LABS: TS Negative Control Passed; TS Panel A 0; TS Panel B 0; TS Positive Control Passed; TSpotTB Negative (Negative)
== END 2024-03-23 06:12 | disposition home or self-care (01) ==
LOC: HO.LAB 06:11
PROVIDERS: PCP Physician Assistant; Visit Provider Physician Assistant
DX: D50.9 Iron deficiency anemia, unspecified (principal); E78.9 Disorder of lipoprotein metabolism, unspecified; I10 Essential (primary) hypertension; R39.9 Unspecified symptoms and signs involving the genitourinary system; Z11.1 Encounter for screening for respiratory tuberculosis
CPT/HCPCS: 36415; 80053; 80061; 81001; 82043; 82570; 83540; 85027; 86481; 87086; 87147

== ENCOUNTER 2024-05-18 16:01 | Outpatient (AMB) | payer OTHER, SELFPAY ==
--- NOTE | 2024-05-18 16:03 | A.OFFPC_ITS ---
Vital Signs 05/18/24 16:05 Height 4 ft 11 in Weight 113 lb 2 oz BMI 22.8 BP 116/72 Blood Pressure Location Lt brachial Position Sitting Pulse 78 Pulse Source Pulse Oximeter Pulse Oximetry (%) 98 Oxygen Delivery Method Room Air Intake Visit Reasons: PE/Re-certification for Program Intake Note: Patient is here today for a physical. [facility] for [facility] fax [phone] Multiple Coil Winder Required: Yes Accompanied by: Marium-Daughter in-law Allergies yellow dye [Yellow Dye] Allergy (Severe, Verified 05/18/24 16:17) YELLOW #5 THROAT CLOSES ibuprofen [From Motrin] Allergy (Unknown, Verified 05/18/24 16:17) SWELL THROAT [place] #[id number] Allergy (Severe, Uncoded 05/18/24 16:17) ORANGE #8 DYE THROAT CLOSES Medication List - Last Reconciled 05/18/24 by Jose German PA-C acetaminophen ER (Mapap Arthritis Pain) 650 mg PO Q12H amlodipine 5 mg PO DAILY 30 days barium sulfate 2%(w/v) (Readi-Cat 2) 450 mL PO DIRECTED 1 day ciclopirox 0.77% 1 appl topical BID 4 weeks diclofenac sodium 1% 2 grams topical QID 30 days food supplemt, lactose-reduced (Ensure oral liquid) 1 ea PO DAILY 30 days food supplemt, lactose-reduced (Ensure Complete) 1 ea PO DAILY PRN 30 days gabapentin 800 mg PO BID 90 days hydroxyzine HCl 25 mg PO BID melatonin 10 mg PO BEDTIME 90 days mirtazapine 30 mg PO BEDTIME 90 days miscellaneous medical supply (Blood Pressure Cuff) Take BP reading daily nystatin 1 appl topical TID omeprazole 20 mg PO DAILY 90 days oxybutynin chloride ER 5 mg PO DAILY quetiapine 25 mg PO BID 90 days tramadol 50 mg PO BID PRN 7 days Tobacco use date assessed: 12/07/23 Dental Screening Dental Screen Date: 12/07/23 HPI PE/Re-certification for Program HPI Details Patient is a 73-year-old female here today for routine annual physical.? Patient has a past medical history significant for lumbar disc disease, infrarenal abdominal aortic aneurysm,? hypertension, smoker mild cognitive impairment. Today presents with her [id number]-ayo. [place]an-speaking only thus used a remote firmware engineer. CHRONIC MEDICAL CONDITIONS--> . Dementia:? Patient has followed up with Neurology ? Currently lives at home with her sons whom take care of her. She does go to a day program as well. Lumbar spine pain:? Has chronic lumbar spine pain, has history of lumbar repair with hardware. ? Patient's most recent MRI of lumbar spine showing multilevel lumbar disc disease and incidental finding of an infrarenal abdominal aortic aneurysm. She currently uses anti-inflammatory and p.r.n. use tramadol with decent affect on reducing her pain. Osteoarthritis:? Continues with Tylenol arthritis for her arthritic pain.? Does use tramadol 50 mg on a p.r.n. basis for moderate to severe pain. Again stop NSAID due to signs symptoms of epigastric discomfort Vaccines: Up-to-date with pneumonia vaccine, tetanus vaccine, UTD with COVID vaccine. Colorectal cancer screening: Was unable to do bowel prep. Mammogram: Family Willing to get mammogram Laboratory Tests 02/03/23 03/31/23 08/25/23 06:43 06:37 09:58 RBC 4.89 Hgb 11.5 L 10.5 L Hct MCV 78.3 L 79.0 L Creatinine 0.74 Iron Cholesterol 207 LDL Cholesterol, C alc 131 TSH 1.31 0.95 Urine Microalbumin TB Test (T-Spot) C om Negative TB Test Nil Contro l Passed 03/23/24 03/23/24 06:23 07:20 RBC Hgb 11.8 L Hct 37.7 MCV Creatinine 0.73 Iron 57 Cholesterol 196 LDL Cholesterol, C alc 116 H TSH Urine Microalbumin 168.0 TB Test (T-Spot) C om TB Test Nil Contro l [facility] Medical History (Updated 05/19/24 @ 07:12 by Jose German PA-C) Pre-ulcerative corn or callous Dysuria Onychomycosis Aneurysm of infrarenal abdominal aorta Osteoarthritis of right knee Postlaminectomy syndrome Surgical History H/O arthroscopy of shoulder H/O lumbosacral spine surgery H/O cervical spine surgery No pertinent past surgical history Family History Father No problems noted. Mother No problems noted. Social History Housing: House Alcohol intake: never Patient Tobacco Use Status: Former Tobacco user Cigarettes Per Day: 5 e-Cigarette/Vaping Use: Never Used Second Hand Smoke Exposure: No service: No Current occupational status: disabled Cognitive needs: Yes (cane, walker) Hearing needs: No Vision needs: Yes (glasses) Questionnaire PHQ-9 Over the last 2 weeks, how often have you been bothered by any of the following problems? 1. Little interest or pleasure in doing things: not at all 2. Feeling down, depressed, or hopeless: not at all 3. Trouble falling or staying asleep, or sleeping too much: not at all 4. Feeling tired or having little energy: not at all 5. Poor appetite or overeating: not at all 6. Feeling bad about yourself - or that you are a failure or have let yourself or your family down: not at all 7. Trouble concentrating on things, such as reading the newspaper or watching television: not at all 8. Moving or speaking so slowly that other people could have noticed. Or the opposite - being so fidgety or restless that you have been moving around a lot more than usual: not at all 9. Thoughts that you would be better off or of hurting yourself in some way: not at all Total score: 0 Depression Screening Interpretation: Negative Depression Screening Done: Yes 15661 - PHQ-9 Billing: Yes Source: Developed by Drs. Valentin Khan, Camryn Parry, Teo Quiles and colleagues, with an educational ebonie from [employer]. Thrive Questionnaire Date Thrive assessed: 05/18/24 I am a: Patient What is your living situation today?: I have a steady place to live Within the past 12 months, did the food you bought not last and you didn't have the money to get more?: Never true Within the past 12 months, did you worry whether your food would run out before you got money to buy more?: Never true Do you have trouble paying for medicines?: No Do you have trouble getting transportation to medical appointments?: No Do you have trouble paying your heating and electricity bill?: No Do you have trouble taking care of your child, family member or friend?: No Do you have trouble with day-to-day activities such as bathing, preparing meals, shopping, managing finances, etc.?: No Are you currently unemployed and looking for a job?: No Are you interested in more education?: No Please select the resources that you would like help with: None Currently or been in a relationship where the following occur: No concerns reported THRIVE Score: 0 AUDIT C Alcohol Use Questionnaire (AUDIT-C) 1. How often do you have a drink containing alcohol?: Never 3. How often do you have six or more drinks on one occasion?: Never Total Score: 0 Score Reviewed/Action Taken: No JERMAINE-7 AMB Questionnaire JERMAINE-7 Date JERMAINE - 7 assessed: 05/18/24 Feeling nervous, anxious, or on edge: 0 = Not at all Not being able to stop or control worryin = Not at all Worrying too much about different things: 0 = Not at all Trouble relaxin = Not at all Being so restless that it is hard to sit still: 0 = Not at all Becoming easily annoyed or irritable: 0 = Not at all Feeling afraid as if something awful might happen: 0 = Not at all Total JERMAINE-7 score (0-4 normal; 5-9 mild; 10-14 moderate; 15-21 severe): 0 Source: Developed by Drs. Valentin Khan, Camryn Parry, Teo Quiles and colleagues, with an educational ebonie from [employer]. JERMAINE-7 Assessment Billing JERMAINE-7 Assessment Tool: JERMAINE-7 Assessment 00611 Review of Systems Const Denies body aches, Denies chills, Denies excessive sweating, Denies fatigue, Denies fever(s) and Denies headache(s) Eyes Denies blurry vision ENT Denies dysphagia, Denies vertigo, Denies dizziness, Denies headache(s), Denies hearing loss and Denies tinnitus Card Denies chest pain, Denies chest pain with activity, Denies syncope, Denies irregular heart rhythm and Denies dyspnea Resp Denies chest congestion, Denies cough, Denies hemoptysis, Denies dyspnea and Denies wheezing GI Denies abdominal pain, Denies melena, Denies hematochezia, Denies coffee ground emesis, Denies dysphagia, Denies diarrhea, Denies nausea and Denies vomiting Denies urinary frequency, Denies dysuria, Denies urinary hesitancy and Denies urinary urgency Musc Denies arthralgias, Denies limited range of motion, Denies muscle cramps and Denies muscle weakness Skin/Breast Denies rash and Denies skin ulcer Neuro Denies Abnormal speech present, Denies confusion, Denies vertigo, Denies dizziness, Denies syncope, Denies headache(s), Denies memory loss and Denies se izure-like activity Psych Denies anxiety, Denies confusion, Denies depression, Denies memory loss, Denies panic attacks and Denies paranoia Endo Denies excessive sweating, Denies fatigue, Denies flushing, Denies polydipsia and Denies polyuria Aller/Immun Denies wheezing Physical exam (Primary Care) Vital Signs: Last Vital Signs Pulse 78 05/18/24 16:05 BP 116/72 05/18/24 16:05 Pulse Ox 98 05/18/24 16:05 Oxygen Delivery Method Room Air 05/18/24 16:05 BMI result Body Mass Index 22.8 Tobacco/Smoking Status: Tobacco use Status Tobacco use date assessed 12/07/23 05/18/24 16:07 Patient Tobacco Use Status Former Tobacco user 05/18/24 16:07 e-Cigarette/Vaping Use Never Used 05/18/24 16:07 PHQ-9: PHQ-9 Score PHQ-9: Total score 0 05/18/24 16:21 Depression Screening Interpretation: Negative Thrive Assessment: Date of Thrive Assessment Date Thrive assessed 05/18/24 05/18/24 16:07 Currently or been in a relationship where the following occur: No concerns reported Const General: cooperative, comfortable, no acute distress, alert and awake; No confusion Orientation/consciousness: oriented to person, oriented to place, patient oriented x3 and No confusion HENMT Head: Yes normocephalic Ears: external ears normal and TM's normal bilaterally Face and sinus: No sinus tenderness Mouth: Normal oral and palatal mucosa present and tongue normal Teeth and gingiva: dentition normal and gingiva normal Throat: Yes posterior oropharynx normal, Yes tonsils normal and Yes uvula midline Eyes Conjunctivae: conjunctivae normal Sclerae: sclerae normal Pupils: Equal, round and reactive pupils present EOM: EOMs intact bilaterally Direct Ophthalmoscopy: No no photophobia Neck Neck: Yes no lymphadenopathy, No tender and Yes no JVD Thyroid: Thyroid normal Carotids: no bruits Chest Chest palpation & inspection: no tenderness Resp Effort & Inspection: normal respiratory effort, no audible wheezes, not labored and no stridor Auscultation: no crackles, no rales, no rhonchi and no wheezes Cardio Jugular venous distension: no JVD Rate: regular rate, not bradycardic and not tachycardic Rhythm: regular rhythm Bruits: no carotid bruits Peripheral pulses: Peripheral pulses 2+ throughout GI Inspection: Yes normal to inspection, No abdominal wall ecchymosis and No visible herniation Palpation (GI): Soft to palpation, nontender, no guarding, not rigid and No hepatosplenomegaly present Auscultation: normoactive bowel sounds General: Yes no CVA tenderness Back/Spine/Pelvis Back: no CVA tenderness and No back tenderness Cervical Spine: cervical ROM normal Thoracic/Lumbar Spine: thoracic and lumbar spine normal to inspection, straight leg raise negative bilaterally, No thoraco-lumbar ROM limited and No lumbar spinal tenderness Skin Lesions: no lesions Rashes: no rashes Wounds: no wounds Neuro General: oriented to person, oriented to place, patient oriented x3, CN's II-XI intact bilaterally and No confusion Cranial nerves: Yes Equal, round and reactive pupils present and Yes Normal accommodation reflex present Cognition (Neuro): normal cognition Speech: No Abnormal speech present Gait exam (Neuro): Normal gait present Motor exam (neuro): 5/5 motor strength present throughout Extrem Right upper extremity: full ROM; no cyanosis Left upper extremity: full ROM; no cyanosis Right lower extremity: no edema Left lower extremity: no edema Psych Appearance: grossly normal Mental Status: mental status grossly normal Affect: normal affect Attitude: cooperative Thought process: Normal thought process present Assessment and Plan Assessment & Plan (1) Annual physical exam: Code(s): Z00.00 - Encounter for general adult medical examination without abnormal findings (2) HTN (hypertension): Code(s): I10 - Essential (primary) hypertension Qualifiers: Hypertension type: essential hypertension Qualified Code(s): I10 - Essential (primary) hypertension Plan: Patient's blood pressure acceptable today in office . Will continue patient on current antihypertensive medication Goal blood pressure be below 140/90 (3) Dementia: Code(s): F03.90 - Unspecified dementia, unspecified severity, without behavioral disturbance, psychotic disturbance, mood disturbance, and anxiety Qualifiers: Alzheimer's disease onset: late onset Dementia behavioral or psychological symptom: with mood disturbance Dementia severity: moderate Dementia type: Alzheimer's Qualified Code(s): G30.1 - Alzheimer's disease with late onset; F02.B3 - Dementia in other diseases classified elsewhere, moderate, with mood disturbance Plan: Has fairly advanced dementia. Has family taking care of her and does go to a day program. Patient lives at home with her son whom takes care of her. (4) Postlaminectomy syndrome: Code(s): M96.1 - Postlaminectomy syndrome, not elsewhere classified Plan: Patient has a chronic history of lower lumbar spine pain. Has had surgery with hardware placement. Does use tramadol on a p.r.n. basis for pain. Continues with daily use Tylenol and gabapentin with decent relief of her pain. (5) Insomnia: Code(s): G47.00 - Insomnia, unspecified Qualifiers: Insomnia type: primary Qualified Code(s): F51.01 - Primary insomnia Plan: Chronically has trouble sleeping though has found a melatonin 10-15 mg before bed has been helpful. Advised to using her Seroquel 50 mg at night before bed to help sleep. (6) Colon cancer screening: Code(s): Z12.11 - Encounter for screening for malignant neoplasm of colon Plan: Did follow-up with Gastroenterology though due to her dementia was not able to follow bowel prep instructions. (7) Breast cancer screening: Code(s): Z12.39 - Encounter for other screening for malignant neoplasm of breast Qualifiers: Breast cancer screening modality: mammogram Qualified Code(s): Z12.31 - Encounter for screening mammogram for malignant neoplasm of breast Plan: Family willing to get her a mammogram. Orders: Orders Microalbumin, Random (w Creat) 05/18/24 I10 - Essential (primary) hypertension Lipid Panel 05/18/24 I10 - Essential (primary) hypertension MM screening mammo BI 05/18/24 Z12.31 - Encounter for screening mammogram for malignant neoplasm of breast Complete Blood Count no Diff 05/18/24 D50.9 - Iron deficiency anemia, unspecified Patient Instructions: Goal: Blood pressure be below 140/90 Barrier: Adherence to physical activity and healthy eating habits, dementia Coding Level of Care Code Est Pt Prev Care >65y(47972) Diagnoses Annual physical exam Z00.00 Essential hypertension I10 Hypertension type: essential hypertension Moderate late onset Alzheimer's dementia with mood disturbance G30.1; F02.B3 Alzheimer's disease onset: late onset Dementia behavioral or psychological symptom: with mood disturbance Dementia severity: moderate Dementia type: Alzheimer's Postlaminectomy syndrome M96.1 Primary insomnia F51.01 Insomnia type: primary Colon cancer screening Z12.11 Encounter for screening mammogram for malignant neoplasm of breast Z12.31 Breast cancer screening modality: mammogram Additional Codes JERMAINE-7 Assessment Billing - JERMAINE-7 Assessment Tool: JERMAINE-7 Assessment [id number] ([id number])
[2024-05-18 16:05] VITALS: BP 116/72; PULSE 78; O2SAT 98; BMI 22.8
== END 2024-05-18 16:34 | disposition home or self-care (01) ==
PROVIDERS: PCP Physician Assistant; Visit Provider Physician Assistant
DX: Z00.00 Encounter for general adult medical examination without abnormal findings (principal); G30.1 Alzheimer's disease with late onset; F02.B3 Dementia in other diseases classified elsewhere, moderate, with mood disturbance; I10 Essential (primary) hypertension; M96.1 Postlaminectomy syndrome, not elsewhere classified; F51.01 Primary insomnia; Z12.11 Encounter for screening for malignant neoplasm of colon; Z12.31 Encounter for screening mammogram for malignant neoplasm of breast
CPT/HCPCS: 99397

== ENCOUNTER 2024-08-26 15:42 | Outpatient (AMB) | payer OTHER, SELFPAY ==
[2024-08-26 15:47] VITALS: BP 140/70; PULSE 75; O2SAT 96; BMI 22.2
--- NOTE | 2024-08-26 15:47 | MHC.PC.OV ---
Vital Signs 08/26/24 15:47 Height 4 ft 11 in Weight 110 lb BMI 22.2 BP 140/70 H Blood Pressure Location Lt brachial Position Sitting Pulse 75 Pulse Source Pulse Oximeter Pulse Oximetry (%) 96 Oxygen Delivery Method Room Air Intake Visit Reasons: A small abscess is developing in her vaginal area. Parachute Cushion Installer Required: Yes Parachute Cushion Installer Language: English Allergies yellow dye [Yellow Dye] Allergy (Severe, Verified 08/26/24 15:47) YELLOW #5 THROAT CLOSES ibuprofen [From Motrin] Allergy (Unknown, Verified 08/26/24 15:47) SWELL THROAT [place] #[id number] Allergy (Severe, Uncoded 08/26/24 15:47) ORANGE #8 DYE THROAT CLOSES Tobacco use date assessed: 12/07/23 Fall risk assessment: No Falls in past year Last assessed Fall Risk: 08/26/24 Dental Screening Dental Screen Date: 12/07/23 HPI A small abscess is developing in her vaginal area. HPI Details 73-year-old female with past medical history of lumbar disc disease, infrarenal abdominal aortic aneurysm, hypertension, smoker and mild cognitive impairment last seen by LUIS FERNANDO coming to the office for acute problem. Patient presents today with her CLINICAL RESOURCE MANAGER who are both brazilian speaking. Earlier this week patient noticed a lump around the anus that has not gotten bigger or smaller. Patient does not seem to have any pain with palpation of this lump, no drainage and no redness of the lump either. She did notice dried blood around the lump at 1 point which has not reappeared. Denies any other symptoms including fever. COUNT INCLUDES THE [facility] Medical History (Updated 08/26/24 @ 16:34 by Trinity Crespo PA-C) Pre-ulcerative corn or callous Dysuria Onychomycosis Aneurysm of infrarenal abdominal aorta Osteoarthritis of right knee Postlaminectomy syndrome Surgical History H/O arthroscopy of shoulder H/O lumbosacral spine surgery H/O cervical spine surgery No pertinent past surgical history Family History Father No problems noted. Mother No problems noted. Social History Housing: House Alcohol intake: never Patient Tobacco Use Status: Former Tobacco user Cigarettes Per Day: 5 e-Cigarette/Vaping Use: Never Used Second Hand Smoke Exposure: No service: No Current occupational status: disabled Cognitive needs: Yes (cane, walker) Hearing needs: No Vision needs: Yes (glasses) Questionnaire Thrive Questionnaire Date Thrive assessed: 05/18/24 AUDIT C Alcohol Use Questionnaire (AUDIT-C) 1. How often do you have a drink containing alcohol?: Never 3. How often do you have six or more drinks on one occasion?: Never Total Score: 0 Score Reviewed/Action Taken: No JERMAINE-7 AMB Questionnaire JERMAINE-7 Date JERMAINE - 7 assessed: 05/18/24 Source: Developed by Drs. Valentin Khan, Camryn Parry, Teo Quiles and colleagues, with an educational ebonie from [employer] Review of Systems Const Denies body aches, Denies chills and Denies fever(s) Eyes Reports no additional complaints ENT Reports no additional complaints Card Reports no additional complaints Resp Reports no additional complaints GI Details: Lump near anus Denies abdominal pain, Denies melena, Denies hematochezia, Denies diarrhea, Denies nausea and Denies vomiting Reports no additional complaints Physical exam (Primary Care) Vital Signs: Last Vital Signs Pulse 75 08/26/24 15:47 BP 140/70 H 08/26/24 15:47 Pulse Ox 96 08/26/24 15:47 Oxygen Delivery Method Room Air 08/26/24 15:47 BMI result Body Mass Index 22.2 Tobacco/Smoking Status: Tobacco use Status Tobacco use date assessed 12/07/23 08/26/24 15:53 Patient Tobacco Use Status Former Tobacco user 08/26/24 15:53 e-Cigarette/Vaping Use Never Used 08/26/24 15:53 Thrive Assessment: Date of Thrive Assessment Date Thrive assessed 05/18/24 08/26/24 15:53 Const General: cooperative, healthy appearing, comfortable and no acute distress Orientation/consciousness: patient oriented x3 HENMT Head: Yes normocephalic Ears: hearing grossly normal bilaterally General nose exam: Normal external nose present Eyes General: appearance normal, both eyes and all related structures Conjunctivae: conjunctivae normal Neck Neck: Yes full ROM and Yes no lymphadenopathy Resp Effort & Inspection: normal respiratory effort Auscultation: clear to auscultation bilaterally, no crackles, no rales, no rhonchi and no wheezes Cardio Rate: regular rate Rhythm: regular rhythm Skin General skin exam: no rashes or lesions noted Neuro General: patient oriented x3 Gait exam (Neuro): Normal gait present Extrem General: Yes normal to inspection, Yes full ROM and No edema Psych Affect: normal affect Attitude: cooperative Insight: Good insight present (Psych) Judgement: Good judgement present (Psych) Coding Level of Care Code Est Pt Level 3 (06456) Diagnoses Rectal lump K62.89 Assessment & Plan Assessment & Plan (1) Rectal lump: Code(s): K62.89 - Other specified diseases of anus and rectum Category: Medical Plan: FRAN was brought into the room as a water treatment plant repairer. Patient is declining exam today and states she is having too much anxiety to undergo the exam. Reviewed red flag symptoms of abscesses and infection and when to present for re-evaluation. Advised patient and CLINICAL RESOURCE MANAGER to go to urgent care or emergency room if they have any further concerns or if they would like to be evaluated for this concern. Discussed with patient and CLINICAL RESOURCE MANAGER that no definitive diagnosis can be made and treatment plan can not be made if physical exam can not be completed. Plan This note was constructed using voice recognition software. While every effort has been made to ensure accuracy and receiving specialist, still areas may have been included sometimes these areas may affect the content or meeting of the given symptoms. Total time spent caring for the patient today was 20 minutes. This includes time spent before the visit reviewing the chart, time spent during the visit, and time spent after the visit and documentation.
== END 2024-08-26 16:53 | disposition home or self-care (01) ==
LOC: HO.HMCH 15:42
PROVIDERS: PCP Physician Assistant
DX: K62.89 Other specified diseases of anus and rectum (principal)

== ENCOUNTER → 2024-08-26 15:42 | Outpatient (BNVA) | payer OTHER, SELFPAY | PROVIDERS: PCP Physician Assistant | DX: K62.89 Other specified diseases of anus and rectum (principal) | CPT/HCPCS: 99212 ==

== ENCOUNTER 2024-09-21 14:54 | Outpatient (AMB) | payer OTHER, SELFPAY ==
[2024-09-21 14:56] VITALS: BMI 23.2
--- NOTE | 2024-09-21 14:56 | MHC.OFFVIS ---
Vital Signs 09/21/24 14:56 Height 4 ft 11 in Weight 115 lb BMI 23.2 Intake Visit Reasons: rectal lump Intake Note: This patient presents for rectal lump. Pt son c/o: reports he noticed a rectal lump about 2 weeks ago when showering her, reports she has occasional rectal bleeding and pain, patient has Alzheimer's unable to answer questions. Professional Development Director Required: Yes Professional Development Director Language: Grinding And Spraying Supervisor Services: Professional Development Director Present Professional Development Director Name: June Information Interpreted: non-clinical & clinical Accompanied by: Family/Other Allergies yellow dye [Yellow Dye] Allergy (Severe, Verified 09/21/24 15:05) YELLOW #5 THROAT CLOSES ibuprofen [From Motrin] Allergy (Unknown, Verified 09/21/24 15:05) SWELL THROAT [place] #[id number] Allergy (Severe, Uncoded 09/21/24 15:05) ORANGE #8 DYE THROAT CLOSES Medication List - Last Reconciled 09/21/24 by Syed Leo MD acetaminophen ER (Mapap Arthritis Pain) 650 mg PO Q12H amlodipine 5 mg PO DAILY barium sulfate 2%(w/v) (Readi-Cat 2) 450 mL PO DIRECTED 1 day ciclopirox 0.77% 1 appl topical BID 4 weeks diclofenac sodium 1% 2 grams topical QID 30 days diphenoxylate-atropine 2.5-0.025 mg (Lomotil) 1 tab PO BID PRN food supplemt, lactose-reduced (Ensure oral liquid) 1 ea PO DAILY 30 days food supplemt, lactose-reduced (Ensure Complete) 1 ea PO DAILY PRN 30 days gabapentin 800 mg PO BID 90 days hydroxyzine HCl 25 mg PO BID melatonin 10 mg PO BEDTIME 90 days melatonin ER 10 mg PO mirtazapine 30 mg PO BEDTIME 90 days miscellaneous medical supply (Blood Pressure Cuff) Take BP reading daily miscellaneous medical supply 1 ea miscellaneous DAILY 99 days nystatin 1 appl topical TID omeprazole 20 mg PO DAILY 90 days oxybutynin chloride ER 5 mg PO DAILY quetiapine 25 mg PO BID 90 days sertraline 25 mg PO DAILY Shower Chair As directed tramadol 50 mg PO BID PRN 7 days HPI HPI rectal lump: Details: [age] year old female referred for a lump outside her anus. The patient has significant Alzheimer's dementia and does not really provide any history. Her daughter and son noticed the lump when they were giving her a bath She did not seem to be uncomfortable with this. Her son says that once in a while they would see small amounts of bright blood on wiping after bowel movements. [facility] Medical History (Updated 09/21/24 @ 15:18 by Syed Leo MD) External hemorrhoid Pre-ulcerative corn or callous Dysuria Onychomycosis Aneurysm of infrarenal abdominal aorta Osteoarthritis of right knee Postlaminectomy syndrome Surgical History H/O arthroscopy of shoulder H/O lumbosacral spine surgery H/O cervical spine surgery No pertinent past surgical history Family History Father No problems noted. Mother No problems noted. Social History Housing: House Alcohol intake: never Patient Tobacco Use Status: Former Tobacco user Cigarettes Per Day: 5 e-Cigarette/Vaping Use: Never Used Second Hand Smoke Exposure: No service: No Current occupational status: disabled Cognitive needs: Yes (cane, walker) Hearing needs: No Vision needs: Yes (glasses) Review of Systems Const Denies chills and Denies fever(s) Card Denies chest pain, Denies dyspnea and Denies dyspnea on exertion Resp Denies cough, Denies dyspnea and Denies dyspnea on exertion GI Reports hematochezia and Denies change in bowel habits Denies hematuria Musc Denies back pain and Denies limited range of motion Neuro Denies focal weakness and Denies convulsions Psych Denies depression and Denies mood swings Physical Exam Vital Signs: BMI result Body Mass Index 23.2 Const Other: Has obvious dementia but answers some questions General: comfortable and no acute distress Orientation/consciousness: patient oriented x3 Neck Neck: Yes no lymphadenopathy Resp Auscultation: clear to auscultation bilaterally Cardio Rhythm: regular rhythm GI Other: Rectal exam - small chronically sclerosed external hemorrhoids, no other masses; unable to do any digital exam or anoscopy as the patient is refusing Palpation (GI): Soft to palpation, nontender and no guarding Neuro General: patient oriented x3 Assessment & Plan Assessment & Plan (1) External hemorrhoid: Code(s): K64.4 - Residual hemorrhoidal skin tags Category: Medical Plan: She has external hemorrhoids as described above on both the left and right side. This did not appear to be suggestive any neoplastic process. I explained the above to the family. She does not have any tenderness. She says not seem to be uncomfortable. She is able to sit down comfortably as well I would not recommend any intervention at this time. I did tell the family that she can be brought back to the office to be re-evaluated for any concerns down the line. Coding Level of Care Code New Pt Level 3 (99946) Diagnoses External hemorrhoid K64.4
== END 2024-09-21 15:14 | disposition home or self-care (01) ==
PROVIDERS: PCP Physician Assistant; Visit Provider Surgery
DX: K64.4 Residual hemorrhoidal skin tags (principal)
CPT/HCPCS: 99203

== ENCOUNTER → 2024-09-21 14:54 | Outpatient (BNVA) | payer OTHER, SELFPAY | PROVIDERS: PCP Physician Assistant; Visit Provider Surgery | DX: K64.4 Residual hemorrhoidal skin tags (principal) | CPT/HCPCS: 99202 ==

== ENCOUNTER 2024-10-22 06:54 | Emergency (ER) | payer OTHER, SELFPAY ==
[2024-10-22] VITALS (7 sets, daily range): BP systolic 134–167; BP diastolic 76–89; PULSE 66–92; RESP 15–18; TEMP 37.7–38.2; O2SAT 94–96; BMI 24.2
--- NOTE | ~2024-10-22 | CT_ITS ---
CLINICAL HISTORY: Fall CT head without contrast Comparison: CT - BRAIN WO IV CONTRAST [id number] - 08/09/2009 12:00 AM EDT Findings: No intra-axial mass, midline shift, hydrocephalus, or acute hemorrhage. There is moderate cortical atrophy. Low-attenuation changes in the periventricular white matter are most compatible with microvascular ischemia. There is no sinus or mastoid fluid. The orbits are within normal limits. No skull fracture. IMPRESSION: 1. No acute intracranial findings. Involutional changes. This document has been electronically signed by: Lamont Lopez MD on 10/22/2024 09:31:56
--- NOTE | ~2024-10-22 | XR_ITS ---
CLINICAL HISTORY: fever 1 view chest x-ray Comparison: None Findings: The lungs are clear. Heart size is normal. No acute fracture. IMPRESSION: 1. No acute findings. This document has been electronically signed by: Lamont Lopez MD on 10/22/2024 09:10:14
--- NOTE | ~2024-10-22 | XR_ITS ---
CLINICAL HISTORY: FALL, RIGHT KNEE PAIN 4 view right knee Comparison: None Findings: There is a possible lateral tibial plateau fracture. 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 There is a relatively large suprapatellar effusion. No radiopaque foreign body. IMPRESSION: 1. 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 2. There is a relatively large suprapatellar effusion. 3. There is a possible lateral tibial plateau fracture. please correlate with CT. This document has been electronically signed by: Lamont Lopez MD on 10/22/2024 09:15:00
--- NOTE | ~2024-10-22 | CT_ITS ---
CLINICAL HISTORY: Fall, pain, abnormal x-ray CT scan of the right knee is performed without contrast. Findings: The examination demonstrates a depressed fracture of the Posterior aspect of the lateral tibial plateau. There is also a nondisplaced fracture involving the base of the tibial eminence with avulsed bony fragments extending into the base of the ACL There is lipohemarthrosis. Fascial edema is also noted adjacent to the proximal calf musculature. There is also chondrocalcinosis as previously noted. IMPRESSION: 1. Depressed fracture posterior aspect of the lateral tibial plateau. There is a proximally 3.5 mm of depression. 2. Nondisplaced fracture of the base of the tibial eminence. 3. Possible avulsed fracture fragments extended to the base of the ACL. 4. Lipohemarthrosis. 5. Chondrocalcinosis compatible with calcium pyrophosphate deposition disease. Impression fascial edema calf musculature. This document has been electronically signed by: Lamont Lopez MD on 10/22/2024 11:50:15
--- NOTE | 2024-10-22 07:33 | ED.FALL ---
HPI - Fall General Chief Complaint: Fall Stated Complaint: FALL/ RIGHT KNEE PAIN Time Seen by Provider: 10/22/24 07:21 Source: patient, family (SON), EMS and lathmaker Mode of arrival: EMS Limitations: no limitations History of Present Illness ED Provider: DR. Siddiqui HPI Narrative: 74-year-old female history of dementia brought in by her son yesterday patient was transferring herself from bed to commode when right knee gave out and patient lost balance ending falling last night, no LOC, no neck pain. Patient is sustaining a right knee pain and swelling. No LOC, no head injury, declined taking blood thinner. Related Data Home Medications ?Medication ?Instructions ?Recorded ?Confirmed melatonin 10 mg tablet,extended 10 mg PO insomnia 09/21/24 09/21/24 release Previous Rx's ?Medication ?Instructions ?Recorded food supplemt, lactose-reduced 0.1 1 ea PO DAILY PRN low weight 30 12/23/21 gram-1.18 kcal/mL oral liquid days #8,880 mL (Ensure Complete) acetaminophen 650 mg 650 mg PO Q12H #60 tabs 03/24/23 tablet,extended release (Mapap Arthritis Pain) ciclopirox 0.77 % topical cream 1 appl topical BID 4 weeks #30 03/24/23 grams food supplemt, lactose-reduced 1 ea PO DAILY 30 days #5,688 mL 07/22/23 (Ensure oral liquid) barium sulfate 2 % (w/v) oral 450 ml PO DIRECTED 1 day #900 mL 10/05/23 suspension (Readi-Cat 2) melatonin 10 mg tablet 10 mg PO BEDTIME sleep 90 days #90 12/07/23 tabs miscellaneous medical supply #1 ea 12/07/23 (Blood Pressure Cuff) nystatin 100,000 unit/gram topical 1 appl topical TID #30 grams 12/07/23 powder oxybutynin chloride 5 mg 5 mg PO DAILY #90 tabs 12/29/23 tablet,extended release 24 hr gabapentin 800 mg tablet 800 mg PO BID 90 days #180 tabs 03/09/24 quetiapine 25 mg tablet 25 mg PO BID 90 days #180 tabs 04/05/24 diphenoxylate-atropine 2.5 1 tab PO BID PRN diarrhea #20 tabs 07/08/24 mg-0.025 mg tablet (Lomotil) diclofenac sodium 1 % topical gel 2 g topical QID 30 days #100 grams 07/12/24 Shower Chair #1 ea 09/02/24 amlodipine 5 mg tablet 5 mg PO DAILY #90 tabs 09/03/24 miscellaneous medical supply 1 ea miscellaneous DAILY 99 days 09/06/24 #1 ea mirtazapine 30 mg tablet 30 mg PO BEDTIME 90 days #90 tabs 09/13/24 omeprazole 20 mg capsule,delayed 20 mg PO DAILY 90 days #90 caps 09/28/24 release sertraline 25 mg tablet 25 mg PO DAILY #90 tabs 09/28/24 hydroxyzine HCl 25 mg tablet 25 mg PO BID #60 tabs 10/10/24 tramadol 50 mg tablet 50 mg PO BID PRN pain 7 days #14 10/10/24 tabs Allergies Allergy/AdvReac Type Severity Reaction Status Date / Time yellow dye [Yellow Dye] Allergy Severe YELLOW #5 Verified 10/22/24 07:03 THROAT CLOSES ibuprofen [From Motrin] Allergy Unknown SWELL Verified 10/22/24 07:03 THROAT [place] #[id number] Allergy Severe ORANGE #8 Uncoded 10/22/24 07:03 DYE THROAT CLOSES Review of Systems Review of Systems: All other systems are reviewed and are negative Constitutional: Reports as per HPI and Reports no additional constitutional complaints Eyes: Reports as per HPI and Reports no additional eye complaints Reports system reviewed and no additional complaints, except as documented Cardiovascular: Reports as per HPI and Reports no additional cardiovascular complaints Respiratory: Reports as per HPI and Reports no additional respiratory complaints Gastrointestinal: Reports as per HPI and Reports no additional gastrointestinal complaints Genitourinary: Reports no additional female genitourinary complaints Musculoskeletal: Reports no additional musculoskeletal complaints Skin/Breast: Reports system reviewed and no additional complaints, except as docu Psychiatric: Reports no additional psychiatric complaints Endocrine: Reports no additional endocrine complaints Hematologic/Lymphatic: Reports no additional hematologic/lymphatic complaints Allergic/Immunologic: Reports no additional allergic/immunologic complaints Reports system reviewed and no additional complaints, except as documented and Reports Abnormal speech [facility] Past Medical History Medical History External hemorrhoid Pre-ulcerative corn or callous Dysuria Onychomycosis Aneurysm of infrarenal abdominal aorta Osteoarthritis of right knee Postlaminectomy syndrome Surgical History H/O arthroscopy of shoulder H/O lumbosacral spine surgery H/O cervical spine surgery No pertinent past surgical history Family History Family History Father No problems noted. Mother No problems noted. Social History Social History Housing: House Alcohol intake: never Patient Tobacco Use Status: Former Tobacco user Cigarettes Per Day: 5 Smoked in Last 30 Days: No e-Cigarette/Vaping Use: Never Used Second Hand Smoke Exposure: No Use of substances other than those prescribed or required for medical reasons: No Advance Directives: Yes Advance Directives on File: Yes Advance Directives Date on File: 05/05/23 Do you have a plan to hurt others: No Plan service: No Current occupational status: disabled Cognitive needs: Yes (cane, walker) Hearing needs: No Vision needs: Yes (glasses) Physical Exam Vital Signs: Vital Signs: Last Vital Signs Temp 100.3 F 10/22/24 14:31 Pulse 84 10/22/24 14:31 Resp 18 10/22/24 14:31 BP 159/85 H 10/22/24 14:31 Pulse Ox 95 10/22/24 14:31 O2 Del Method Room Air 10/22/24 14:31 BMI result Body Mass Index 24.2 Vital signs have been reviewed and appear to be correct. Blood pressure elevated. Heart rate normal. Respiratory rate normal. Temperature normal. Oxygen saturation normal. Appearance: Alert. No acute distress. Head: Normal external exam. Normocephalic. Atraumatic. No Amin signs noted. No raccoon eyes noted Eyes: PERRLA. EOMI. Conjunctiva and sclera normal. Eyelids normal. ENT: TM's Normal. Pharynx normal. Uvula midline. Moist mucous membranes. No trismus noted. No drooling noted. No muffled voice noted. Neck: Normal inspection. Neck supple. FROM. No adenopathy. Thyroid Normal. No meningeal signs. No neck mass noted. CVS: Normal heart rate and rhythm. Heart sound normal. No murmurs noted. Pulses normal throughout. Respiratory: No respiratory distress. Painless inspiration. Breath sounds normal. No wheezes/rales/rhonchi noted. Chest nontender. No accessory muscle usage noted or decreased air movement noted. Abdomen: Soft and nontender. Bowel sounds normal in all 4 quadrants. No distention noted. No organomegaly noted. No visible injury noted. Back: No CVA tenderness. Full range of motion noted. Skin: Skin warm and dry. Normal skin color. Normal skin turgor. No rashes/lesions/lacerations noted. Extremities: Right lower extremity: Swelling of the right knee, no deformity, limited full range of motion due to pain. Neuro: Cranial nerve exam: II-XII are grossly intact No motor deficit. No sensory deficit. Reflexes normal. Course Reevaluation(s) Reevaluation #1: Right tibial plateau fracture. Case discussed with Rayshawn Gonzalez orthopedic PA on-call who recommended to immobilize the right, and nonweightbearing with outpatient follow-up. Family is requesting placement. Time: 15:21 Medications Administered Discontinued Medications Generic Name Dose Route Start Last Admin Trade Name Freq PRN Reason Stop Dose Admin Acetaminophen 650 mg 10/22/24 12:33 10/22/24 13:03 Acetaminophen 325 Mg Tablet PO 10/22/24 12:34 650 mg ONCE ONE Administration Medical Decision Making Differential Diagnosis Differential Diagnoses: The differential diagnosis associated with the presentation includes (Intracranial bleed, knee fracture, right knee dislocation, pneumonia, pneumothorax, pleural effusion, electrolyte derangement, severe anemia, case management consultation, physical therapy consultation.) Admission/Observation Consideration of admission/observation: Escalation of care including admission/observation considered Consult Healthcare Provider Management of the patient was discussed with: Hospice Volunteer (Rayshawn Gonzalez.) Lab Data MDM Lab Attestation statement: I reviewed the patient's lab results. 10/22/24 07:46 10/22/24 07:46 Labs: Lab Results 10/22/24 10/22/24 10/22/24 Range/Units 07:46 08:14 09:12 WBC 7.8 (4.8-10.8) X10*3/uL RBC 4.82 (4.20-5.50) X10*6/uL Hgb 11.4 L (12.0-16.0) g/dl Hct 36.5 L (37.0-47.0) % MCV 75.7 L (80.0-98.0) fL MCH 23.7 L (27.0-33.0) pg MCHC 31.2 (31.0-35.0) g/dl RDW 14.2 (11.0-16.0) % Plt Count 180 (160-400) X10*3/uL MPV 9.7 (9.4-12.3) fL Immature Gran % (Auto) 0.6 H (0.0-0.4) % Neut % (Auto) 77.7 H (45-73) % Lymph % (Auto) 13.9 L (20-40) % Bertie % (Auto) 7.1 (2-11) % Eos % (Auto) 0.3 (0-4) % Baso % (Auto) 0.4 (0-2) % Lymph # (Auto) 1.1 L (1.2-4.9) X10*3/uL Bertie # (Auto) 0.6 (0.1-1.2) X10*3/uL Eos # (Auto) 0.0 (0.0-0.4) X10*3/uL Baso # (Auto) 0.0 (0.0-0.2) X10*3/uL Abs Immat Gran (auto) 0.05 H (0.00-0.03) X10*3/uL Absolute Neuts (auto) 6.0 (2.0-8.3) x10*3/uL Absolute Nucleated RBC 0.000 (0.0-0.012) X10*3/uL Nucleated RBC % (auto) 0.0 (0.0-0.2) /100WBC Sodium 143 (135-145) mmol/L Potassium 3.3 (3.3-5.1) mmol/L Chloride 108 (96-108) mmol/L Carbon Dioxide 27 (22-29) mmol/L Anion Gap 11 L (12-20) BUN 11 (9-16) mg/dL Creatinine 0.64 (0.5-1.4) mg/dL Estim Creat Clear Calc 58.7 Estimated GFR > 60 Random Glucose 115 (60-115) mg/dL Calcium 9.1 (8.4-10.2) mg/dL Total Bilirubin 0.5 (0.0-1.0) mg/dL AST 31 (5-31) U/L ALT 33 H (0-31) U/L Alkaline Phosphatase 99 (39-117) U/L Total Protein 7.7 (6.5-8.0) g/dL Albumin 3.8 (3.5-5.0) g/dL Urine Color Yellow Urine Appearance Clear Urine pH 5.5 (5.0-9.0) Ur Specific [place] 1.025 (1.005-1.025) Urine Protein 30 (1+) H (Neg-Trace) mg/dL Urine Glucose (UA) 100 H (Negative) mg/dL Urine Ketones Negative (Negative) mg/dL Urine Blood Trace H (Negative) Urine Nitrite Negative (Negative) Ur Leukocyte Esterase Small (1+) H (Negative) Urine RBC 3-5 H (0-2) /HPF Urine WBC 6-10 H (0-5) /HPF Ur Squamous Epith Cells 3-5 (0-2) /HPF Urine Bacteria None Seen (None Seen) Hyaline Casts 0-2 (0-2) /LPF Influenza Type A (PCR) NEGATIVE (Negative) Influenza Type B (PCR) NEGATIVE (Negative) RSV RNA Qual (PCR) NEGATIVE (Negative) SARS-CoV-2 RNA (RT-PCR) NEGATIVE (Negative) Independent Interpretation I performed an independent interpretation of an: Plain X-Ray (1. 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 2. There is a relatively large suprapatellar effusion. 3. There is a possible lateral tibial plateau fracture. please correlate with CT.) and CT Scan (Right knee:1. Depressed fracture posterior aspect of the lateral tibial plateau. There is a proximally 3.5 mm of depression. 2. Nondisplaced fracture of the base of the tibial eminence. 3. Possible avulsed fracture fragments extended to the base of the ACL. 4. Lipohemarthrosis. 5. Chondrocalcinosis) Radiology Impression Discussion of test interpretation with radiology: I have reviewed the radiologist's reading. Discharge Plan Discharge Clinical Impression: Closed fracture of right tibial plateau Patient Disposition: Still a Patient Prescriptions: No Action Ensure Complete 0.1 gram-1.18 kcal/mL liquid 1 ea PO DAILY PRN (Reason: low weight) 30 Days Qty: 8880 11RF oxybutynin chloride 5 mg tablet extended release 24hr 5 mg PO DAILY Qty: 90 2RF gabapentin 800 mg tablet 800 mg PO BID 90 Days Qty: 180 2RF quetiapine 25 mg tablet 25 mg PO BID 90 Days Qty: 180 2RF diphenoxylate-atropine [Lomotil] 2.5-0.025 mg tablet 1 tab PO BID PRN (Reason: diarrhea) Qty: 20 0RF diclofenac sodium 1 % gel 2 g topical QID 30 Days Qty: 100 3RF Rx Instructions: apply to back and knees. (DME) Shower Chair Misc See Rx Instructions .Route Qty: 1 0RF Rx Instructions: As directed amlodipine 5 mg tablet 5 mg PO DAILY Qty: 90 1RF miscellaneous medical supply Misc 1 ea miscellaneous DAILY 99 Days Qty: 1 0RF mirtazapine 30 mg tablet 30 mg PO BEDTIME 90 Days Qty: 90 2RF omeprazole 20 mg capsule,delayed release(DR/EC) 20 mg PO DAILY 90 Days Qty: 90 2RF sertraline 25 mg tablet 25 mg PO DAILY Qty: 90 1RF hydroxyzine HCl 25 mg tablet 25 mg PO BID Qty: 60 3RF tramadol 50 mg tablet 50 mg PO BID PRN (Reason: pain) 7 Days Qty: 14 2RF Ensure Liquid 1 ea PO DAILY 30 Days Qty: 5688 1RF acetaminophen [Mapap Arthritis Pain] 650 mg tablet extended release 650 mg PO Q12H Qty: 60 6RF ciclopirox 0.77 % cream 1 appl topical BID 28 Days Qty: 30 0RF melatonin 10 mg tablet 10 mg PO BEDTIME 90 Days Qty: 90 2RF nystatin 100,000 unit/gram powder 1 appl topical TID Qty: 30 0RF (DME) Blood Pressure Cuff Misc See Rx Instructions .ROUTE .MEDSUPPLY Qty: 1 0RF Rx Instructions: Take BP reading daily Readi-Cat 2 2 % (w/v) suspension 450 ml PO DIRECTED 1 Days Qty: 900 0RF melatonin 10 mg tablet extended release 10 mg PO Referrals: Fracisco Renae MD [Physician] - Print Language: Urdu
[2024-10-22 07:48] LABS: MANUAL DIFF FLAG NO
--- NOTE | 2024-10-22 07:50 | PC.NURSE ---
pt biba from home s/p unwitnessed fall x yesterday while ambulating to the commode. denies feeling dizzy/lightheaded prior to fall. -headstrike, -loc, -thinners. denies head/neck pain. pt c/o right knee pain s/p fall reporting decreased ambulation. denies numbness/tingling in LE. unable to stand/pivot during EMS transport. lac noted to right arm - bleeding controlled. walker baseline. hx dementia. upon ED arrival - pt alert and oriented to self only. pt presents as extremely disoriented but per son, this is her baseline. pt reporting 6/10 right knee pain. swelling noted to LE. ice pack applied to affected area. labs obtained/sent to lab by [facility]. pt on RA w/o difficulty - no sob/wob noted. respirations even/unlabored. plan of care ongoing. call rod placed within reach.
[2024-10-22 07:53] LABS: Basophils Percent Auto 0.4 % (0-2); Eosinophils Percent Auto 0.3 % (0-4); Hematocrit 36.5 % (37.0-47.0); Hemoglobin 11.4 g/dl (12.0-16.0); Imm Gran Abs Auto 0.05 X10*3/uL (0.00-0.03); Imm Gran Pct Auto 0.6 % (0.0-0.4); Lymphocytes Absolute Auto 1.1 X10*3/uL (1.2-4.9); Lymphocytes Percent Auto 13.9 % (20-40); Mean Corpuscular HGB Conc 31.2 g/dl (31.0-35.0); Mean Corpuscular Hemoglobin 23.7 pg (27.0-33.0); Mean Corpuscular Volume 75.7 fL (80.0-98.0); Mean Platelet Volume 9.7 fL (9.4-12.3); Monocytes Absolute Auto 0.6 X10*3/uL (0.1-1.2); Monocytes Percent Auto 7.1 % (2-11); Neutrophils Percent Auto 77.7 % (45-73); Platelet Count 180 X10*3/uL (160-400); Red Blood Count 4.82 X10*6/uL (4.20-5.50); Red Cell Distribution Width 14.2 % (11.0-16.0); White Blood Count 7.8 X10*3/uL (4.8-10.8)
[2024-10-22 08:03] LABS: Alanine Aminotransferase 33 U/L (0-31); Albumin Level 3.8 g/dL (3.5-5.0); Alkaline Phosphatase 99 U/L (39-117); Anion Gap 11 (12-20); Aspartate Amino Transferase 31 U/L (5-31); Bilirubin Total 0.5 mg/dL (0.0-1.0); Blood Urea Nitrogen 11 mg/dL (9-16); Calcium 9.1 mg/dL (8.4-10.2); Carbon Dioxide 27 mmol/L (22-29); Chloride 108 mmol/L (96-108); Creatinine Clr Calc Pharmacy 58.7; Estimated Glomerular Filt Rate > 60; Glucose Random 115 mg/dL (60-115); Potassium 3.3 mmol/L (3.3-5.1); Sodium 143 mmol/L (135-145); Total Protein 7.7 g/dL (6.5-8.0)
[2024-10-22 08:26] LABS: Appearance Urine Clear; Color Urine Yellow; Glucose Urine UA 100 mg/dL (Negative); Leukocyte Esterase Urine Small (1+) (Negative); Nitrite Urine Negative (Negative); PH 5.5 (5.0-9.0); Specific Gravity - Urine 1.025 (1.005-1.025); UMIC TRIGGER UACC YES; Urine Blood Trace (Negative); Urine Ketones Negative (Negative); Urine Protein 30 (1+) mg/dL (Neg-Trace)
[2024-10-22 08:32] LABS: Bacteria Urine None Seen (None Seen); Hyaline Casts Urine 0-2 /LPF (0-2); UACC Culture Trigger YES
--- NOTE | 2024-10-22 08:39 | PC.NURSE ---
2:1 assist to the commode. pt extremely unsteady on feet. unsteady gait noted. urine sample obtained/sent to lab. pt assisted back to bed. turned/repositioned to comfort. pt seemingly warm to the touch - rectal temp obtained displaying 100.3 - provider notified/aware of results. plan of care ongoing. call rod placed within reach.
--- NOTE | 2024-10-22 09:14 | PC.NURSE ---
swabs obtained/sent to lab.
[2024-10-22 09:56] LABS: Influenza A PCR NEGATIVE (Negative); Influenza B PCR NEGATIVE (Negative); Resp Syncy Virus RNA Qual PCR NEGATIVE (Negative); SARS COV2 PCR INHOUSE NEGATIVE (Negative)
--- NOTE | 2024-10-22 10:34 | PC.NURSE ---
pt to CT at this time. plan of care ongoing.
[2024-10-22] MEDS: Acetaminophen 325 MG TABLET 650 MG PO (13:03)
--- NOTE | 2024-10-22 13:03 | PC.NURSE ---
pt remains febrile at this time. medication administered per provider order. effectiveness pending.
--- NOTE | 2024-10-22 16:01 | PC.NURSE ---
knee immobilizer applied to pt's right knee at this time. pt tolerated well.
--- NOTE | 2024-10-22 16:29 | MHC.CM.PN ---
CM RECEIVED CONSULT FROM ED PROVIDER DR. ADKINS, PT W/R TIBIAL FX IN NEED OF STR PLACEMENT, P.T. EVAL PENDING AND CM WILL FOLLOW-UP W/FAMILY TOMORROW 10/23 TO COMPLETE ASSESSMENT.
--- NOTE | 2024-10-22 17:06 | PC.NURSE ---
pt attempting to get out of bed without assistance. unsteady gait. pt assisted back into bed. chair alarm in place on stretcher for safety precautions as no cameras are readily available at the moment. will set up camera when able. pt provided w/ drinks and snacks. pt pending PT eval at this time. plan of care ongoing. call rod placed within reach.
--- NOTE | 2024-10-22 17:22 | PC.NURSE ---
pt transitioned to hospital bed to promote comfort. bed alarm in place for safety precautions. call rod placed within reach.
--- NOTE | 2024-10-22 18:45 | PHA.MEDREC ---
Pharmacy Consult ? Medication Reconciliation Pharmacy has completed the medication reconciliation. Spoke with family member at bedside through an relocation specialist. He brought in her medication bottles from home. He reported the gabapentin is used as needed since it makes her hyperactive . He reports she last took her medications last night. Oxybutynin was last filled 06/07 for a 90 DS and sertraline was last filled 8/3 for a 90 DS, both bottles were present with pills still in them.
--- NOTE | 2024-10-22 19:17 | PC.NURSE ---
this rn assumed care of pt, pt siting up in stretcher, eating dinner at this time, no acute distress noted.
[2024-10-22] MEDS: hydrOXYzine HCL 25 MG TABLET PO (21:00)
[2024-10-22] MEDS: Mirtazapine 7.5 MG TABLET 30 MG PO (21:00)
[2024-10-22] MEDS: QUEtiapine Fumarate 50 MG TABLET 25 MG PO (21:00)
[2024-10-22] MEDS: Melatonin 3 MG TABLET 12 MG PO (21:01)
--- NOTE | 2024-10-22 21:11 | PC.NURSE ---
pt medicated per dec, tolerated well crushed with applesauce.
[2024-10-23 06:17] VITALS: BP 140/77; PULSE 87; RESP 17; TEMP 37.1; O2SAT 100
[2024-10-23 08:56] VITALS: BP 165/102; PULSE 78; RESP 18; TEMP 37; O2SAT 96
[2024-10-23] MEDS: amLODIPine Besylate 5 MG TABLET PO (09:06)
[2024-10-23] MEDS: hydrOXYzine HCL 25 MG TABLET PO ×2 (09:06→21:35)
[2024-10-23] MEDS: QUEtiapine Fumarate 50 MG TABLET 25 MG PO ×2 (09:06→21:35)
[2024-10-23] MEDS: oxyBUTYnin chloride ER 5 MG TAB.ER.24 PO (09:06)
--- NOTE | 2024-10-23 09:35 | PC.NURSE ---
patient medicated per the MAR, takes pills crushed in applesauce.
--- NOTE | 2024-10-23 10:53 | PC.NURSE ---
pt currently alert to person only, son at bedside-speaking niuean needing food safety director, food safety director obtained as we need a code status- son stating he is the HCP but lost the paperwork, his mother resides with him provider was notified of this and has come to the unit to speak with the family. he also states that hes unsure of all the medications she takes- that he did speak with pharmacy here. pt rr equal/non labored, lungs clear, pt currently denying pain/discomfort, + csm/pulses to rle, son state pt is able to feed herself but he is assisting her currently to prevent her making a mess since she was just cleaned up. fall precautions are intact, call rod within reach, son is aware that curtain needs to be open when he leaves so we can ensure the patients safety, plan of care ongoing.
[2024-10-23] MEDS: QUEtiapine Fumarate 25 MG TABLET PO (13:04)
--- NOTE | 2024-10-23 13:04 | PC.NURSE ---
pt became agitated attempting to get oob wanting to leave, this nurse notified provider who put in an extra dose of PO medications she already takes at home, upon attempting to administer the medication the patient spit the medication out. this nurse wasted the medication and obtained a new one and administered it in applesauce which the patient did take the second time. ice pack placed on pts rt knee area, bed alarm on, will obtain a patient safety camera as well if one is available. plan of care ongoing.
--- NOTE | 2024-10-23 13:42 | MHC.CM.PN ---
CM RECEIVED CM CONSULT FROM ED PROVIDER DR. ADKINS, PT W/DEMENTIA AND R TIBIAL PLATEAU FX, P.T. PENDING, CM MET W/PT AND SON/HCP [facility] AT BEDSIDE, [facility] REPORTS PT LIVES W/HIM, USES A FWW FOR AMBULATION BUT DOES NOT LIKE IT, HAS [facility] RECORDING ARTIST, MAGALISLisa ILSA MON-SAT FROM 4:30PM-8PM AND GOES TO A SENIOR DAY PROGRAM M-F 7-3:30. [facility] REPORTS HE WOULD LIKE PT TO GO TO A LOCAL SNF FOR STR HE CANNOT LIFT PT D/T BACK INJURY. [facility] VERIFIES PCP ON FILE IS CORRECT AND HE HAS A COPY OF PT'S HCP AND REPORTS HE WILL BRING IN A COPY TOMORROW AT 9AM TOMORROW. OF NOTE [facility] ALSO REPORTED PT HAS A 10:30AM GI APPT THAT TOOK 9MOS TO GET INTO AND HE WANTS TO WHEEL PT OVER TO APPT AND BRING HER BACK, CM AND ED PROVIDER ADVISED AGAINST IT AND THAT PT WILL HAVE TO START ED PROCESS AGAIN.
--- NOTE | 2024-10-23 13:42 | PC.NURSE ---
pt moved from OF2 to OV3 for safety, fall precautions intact, pt safety camera intact. pt confused and continuously attempting to get oob
[2024-10-23] MEDS: Acetaminophen 325 MG TABLET PO ×2 (13:51→21:41)
--- NOTE | 2024-10-23 13:56 | PC.NURSE ---
pt rubbing her knee as if she was in pain, pt asked if she was in pain but was unable to answer, this nurse medicated the patient with tylenol per order, will reassess the patient to see if she seems to be doing better.
[2024-10-23 14:00] VITALS: BP 138/63; PULSE 97; RESP 20; TEMP 36.5; O2SAT 93
--- NOTE | 2024-10-23 16:06 | PC.NURSE ---
pt has not been able to verbalize pain level, however, she has been rubbing her leg as if she had pain. this nurse medicated the patient for pain, upon reassessment pt no longer rubbing her leg and has been able to doze off and rest. call rod within reach, plan of care ongoing
--- NOTE | 2024-10-23 18:36 | PC.NURSE ---
pt was sleeping, family came in at bedside- woke patient, family encouraging pt to eat her dinner- this nurse told the family that the patient has been snacking for most of the afternoon.
--- NOTE | 2024-10-23 20:01 | MHC.EDTECH ---
Interpretor at bedside. This tech explained to patient that we needed to place a purewick to help if she couldn't hold her urine. Patient shooing interpretor away, refuisng to lie back and allow me to place purewick.
[2024-10-23 20:32] VITALS: BP 106/70; PULSE 100; RESP 16; O2SAT 95
[2024-10-23] MEDS: Melatonin 3 MG TABLET 12 MG PO (21:36)
[2024-10-23] MEDS: Mirtazapine 7.5 MG TABLET 30 MG PO (21:36)
--- NOTE | 2024-10-23 22:28 | PC.NURSE ---
Patient is alert to self and familiar person. Patient unable to state current level of pain, however patient noted rubbing her right leg, immobilizer in place, patient repositioned to promote comfort, purewick in place, patient. Patient medicated with bedtime medications and Tylenol 325 mg PO PRN for pain. Patient took her medications crushed in pudding. Bed alarm engaged, bedside camera monitor at bedside. Call rod in patient's reach, plan of care ongoing.
[2024-10-24 06:46] VITALS: BP 143/73; PULSE 80; RESP 14; O2SAT 94
--- NOTE | 2024-10-24 08:23 | MHC.CM.ED ---
Addendum entered by Loreto Snowden 10/24/24 14:37: [facility] is able to offer a bed. Spoke with patient's son, Jose Guadalupe, via telephone at [phone]. Jose Guadalupe accepts bed at [facility]. Jose Guadalupe unable to find copy of patient's HCP. Met with patient and catch basin cleaner. Patient is able to identify Jose Guadalupe is her son and her HCP. HCP completed, signed and witnessed. Original given to patient. Copy placed in chart. Original Note: Patient remains in ER overflow. Physical therapy eval completed. STR will possible transition to LTC is recommended. Clinical updates sent to facilities still reviewing: [facility] at [facility], [facility], [facility], and [facility]. Continue to monitor for d/c needs.
[2024-10-24] MEDS: QUEtiapine Fumarate 50 MG TABLET 25 MG PO ×2 (09:24→20:58)
[2024-10-24] MEDS: hydrOXYzine HCL 25 MG TABLET PO ×2 (09:24→20:58)
[2024-10-24 09:28] VITALS: BP 155/93
[2024-10-24] MEDS: amLODIPine Besylate 5 MG TABLET PO (09:28)
[2024-10-24] MEDS: oxyBUTYnin chloride ER 5 MG TAB.ER.24 PO (10:46)
[2024-10-24 14:11] VITALS: BP 122/72; PULSE 77; RESP 16; TEMP 37.4; O2SAT 98
--- NOTE | 2024-10-24 15:29 | PC.NURSE ---
Accepted care of this patient at 1500. While getting report, patient attempted to get OOB, self transferred to [facility], urinated all over floor. Patient cleaned and transferred back to bed w/ EDT Mimi. This RN called VMT room to confirm they are watching patient, were watching empty bed adjacent to patient, will now be watching patient. Informed VMT patient only speaks macedonian and is confused. VMT lead Alex came to overflow to confirm camera placement.
[2024-10-24] MEDS: Mirtazapine 7.5 MG TABLET 30 MG PO (20:57)
[2024-10-24] MEDS: Melatonin 3 MG TABLET 12 MG PO (20:58)
[2024-10-24 21:12] VITALS: RESP 21
--- NOTE | 2024-10-24 21:13 | MHC.EDTECH ---
patient refused vitals, RN aware and present at the time of attempt
[2024-10-25 06:16] VITALS: BP 171/89; PULSE 88; RESP 19; TEMP 36.7; O2SAT 97
[2024-10-25] MEDS: hydrOXYzine HCL 25 MG TABLET PO (09:00)
[2024-10-25] MEDS: QUEtiapine Fumarate 50 MG TABLET 25 MG PO (09:00)
[2024-10-25] MEDS: oxyBUTYnin chloride ER 5 MG TAB.ER.24 PO (09:02)
[2024-10-25 09:03] VITALS: BP 142/75
[2024-10-25] MEDS: amLODIPine Besylate 5 MG TABLET PO (09:03)
[2024-10-25] MEDS: Acetaminophen 325 MG TABLET PO (10:19)
--- NOTE | 2024-10-25 12:00 | MHC.CM.ED ---
Patient remains in ER overflow. Insurance auth has been obtained by [facility]. Patient can leave at 1245pm. Libby JOY booked. Med [facility] with chart. Patient, son Maria Antonia Shi RN and Anny GOULD aware. Continue to monitor for d/c needs.
--- NOTE | 2024-10-25 13:24 | MHC.EDTECH ---
Cleaned patient, changed linen and gown.
[2024-10-25 13:53] VITALS: BP 142/72; PULSE 80; RESP 18; TEMP 36.7; O2SAT 98
== END 2024-10-25 13:55 ==
PROVIDERS: Emergency Provider Emergency Medicine; PCP Physician Assistant
DX: S82.141A Displaced bicondylar fracture of right tibia, initial encounter for closed fracture (principal); W17.89XA Other fall from one level to another, initial encounter; M25.561 Pain in right knee; Z03.818 Encounter for observation for suspected exposure to other biological agents ruled out; Y93.89 Activity, other specified; Y92.009 Unspecified place in unspecified non-institutional (private) residence as the place of occurrence of the external cause; Y99.9 Unspecified external cause status
CPT/HCPCS: 0241U; 36415; 70450; 71045; 73562; 73700; 80053; 81001; 85025; 87086; 97162; 99285

== ENCOUNTER → 2024-10-22 07:32 | Outpatient (BNV) | payer OTHER, SELFPAY | PROVIDERS: Emergency Provider Emergency Medicine; PCP Physician Assistant; Visit Provider Radiology Diagnostic Radiology | DX: S82.121A Displaced fracture of lateral condyle of right tibia, initial encounter for closed fracture (principal); R93.7 Abnormal findings on diagnostic imaging of other parts of musculoskeletal system; Z03.89 Encounter for observation for other suspected diseases and conditions ruled out; R50.9 Fever, unspecified | CPT/HCPCS: 70450; 71045; 73562; 73700 ==

== ENCOUNTER 2024-11-03 10:04 | Outpatient (AMB) | payer OTHER, SELFPAY ==
--- NOTE | 2024-11-03 10:07 | MHC.OFFVIS ---
Intake Visit Reasons: FC- RT tibial plateau fx, DOI 10/21/24 Intake Note: [place] is a 74 year old female who presents today for an ER follow up of RT tibia plateau fx, DOI 10/21/24. Patient was brought to [facility] due to a fall, when patient was transferring herself from her bed to the commode when her right nee gave out causing her to fall. X-rays and CT were obtained and placed in a knee immobilizer and remain non weight bearing. Multi Slide Machine Tender Required: Yes Multi Slide Machine Tender Language: Beamster Services: Multi Slide Machine Tender Present Multi Slide Machine Tender Name: CARLOS Gomes/MERVIN Information Interpreted: non-clinical & clinical Allergies yellow dye [Yellow Dye] Allergy (Severe, Verified 11/03/24 10:26) YELLOW #5 THROAT CLOSES ibuprofen [From Motrin] Allergy (Unknown, Verified 11/03/24 10:26) SWELL THROAT [place] #[id number] Allergy (Severe, Uncoded 11/03/24 10:26) ORANGE #8 DYE THROAT CLOSES HPI HPI FC- RT tibial plateau fx, DOI 10/21/24: Details: 74-year-old Faroese-speaking demented female presents to the office today for an injury she sustained to her right knee on 10/21/2024. Emergency department notes state that she was transferring herself from her bed to her commode when she fell landing on the right knee. She was transported to the emergency department where x-ray imaging and CT scan demonstrated a tibial plateau fracture. She was placed in a knee immobilizer and transferred to a short-term rehab. She presents today for ortho eval. Upon arrival today she is brought to our office from transportation services from a rehab facility with no aids present. [facility] Medical History External hemorrhoid Pre-ulcerative corn or callous Dysuria Onychomycosis Aneurysm of infrarenal abdominal aorta Osteoarthritis of right knee Postlaminectomy syndrome Surgical History H/O arthroscopy of shoulder H/O lumbosacral spine surgery H/O cervical spine surgery No pertinent past surgical history Family History Father No problems noted. Mother No problems noted. Social History Housing: House Alcohol intake: never Patient Tobacco Use Status: Former Tobacco user Cigarettes Per Day: 5 e-Cigarette/Vaping Use: Never Used Second Hand Smoke Exposure: No Advance Directives Date on File: 10/24/24 service: No Current occupational status: disabled Cognitive needs: Yes (cane, walker) Hearing needs: No Vision needs: Yes (glasses) Review of Systems Const All systems reviewed & are unremarkable except as noted in HPI and below Physical Exam Const General: cooperative and no acute distress Orientation/consciousness: patient oriented x3 Resp Effort & Inspection: normal respiratory effort and able to speak in complete sentences Cardio Peripheral pulses: Peripheral pulses 2+ throughout Neuro General: patient oriented x3 Extrem Other: Right knee normal to inspection. She expresses some tenderness to palpation along the proximal tibia. She can fully extend the knee. Calf supple nontender neurovascularly intact. Results Reviewed Results Reviewed: xr right knee 10/22/24 IMPRESSION: 1. 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 2. There is a relatively large suprapatellar effusion. 3. There is a possible lateral tibial plateau fracture. please correlate with CT. CT lt knee 10/22/24 IMPRESSION: 1. Depressed fracture posterior aspect of the lateral tibial plateau. There is a proximally 3.5 mm of depression. 2. Nondisplaced fracture of the base of the tibial eminence. 3. Possible avulsed fracture fragments extended to the base of the ACL. 4. Lipohemarthrosis. 5. Chondrocalcinosis compatible with calcium pyrophosphate deposition disease. Impression fascial edema calf musculature. Assessment & Plan Assessment & Plan (1) Tibial plateau fracture, right: Code(s): S82.141A - Displaced bicondylar fracture of right tibia, initial encounter for closed fracture Category: Medical Plan: 74 year old Faroese-speaking demented patient was at right tibial plateau fracture. Her son did arrive towards the end of the visit and I was able to discuss the extent of the injury to him along with her treatment plan. Patient will remain in a knee immobilizer with transfers. The brace can be removed for physical therapy exercises which include range of motion, quad exercises. She will remain nonweightbearing for approximately 3 months since the date of injury. I did make the patient is unaware of her next appointment in 6 weeks so he is able to attend. Patient will see me back in 6 weeks with x-rays sooner if needed. Coding Level of Care Code New Pt Level 3 (62393) Complex EM visit Add On G2211 Diagnoses Tibial plateau fracture, right S82.141A
--- OUTSIDE RECORDS SUMMARY | 2024-11-03 11:50 | XMS_ITS | Continuity of Care Document ---
Author Organization [facility], [facility] Address [address] [place] [address] Care Team Providers Care Accounting Methods Analyst Name Role Phone [facility]ND FLOOR OTHER Assessment No assessment recorded. Plan of Treatment Reminders Order Date Submit Date Provider Last Modified By Organization Details Last Modified Time Details Appointments None record ed. Lab None record ed. Referral None record ed. Procedures None record ed. Surgeries None record ed. Imaging None record ed. Medication Orders None record ed. Patient TargetsNo targets recorded. Patient InstructionsNo instructions recorded. Reason for Referral None Reported. Problems Name Problem SNOMED Code Status Onset Date Resolution Date Notes Provider Name and Address Organization Details Recorded Time Closed fracture of right tibial plateau 0895648325488 9105 Active 2024 SHAHEEN VALLE NP [address] , [address], [place], [address], [facility] [employer] [facility] 5 14:01:06 Dementia 35768018 Active 2024 SHAHEEN VALLE NP [address] , [address], [place], [address], [facility] [employer] [facility] 5 14:19:29 Onychomycos is 319932804 Active 2024 SHAHEEN VALLE NP [address] , [address], [place], [address], [facility] [employer] 5 14:19:41 Abdominal aortic aneurysm 658826601 Active 2024 SHAHEEN VALLE NP [address] , [address], [place], [address], [facility] [employer] [facility] 5 14:20:06 Osteoarthri tis 655401050 Active 2024 R knee SHAHEEN VALLE NP [address] [facility], [address], [place], [address], [facility] [employer] [facility] 5 14:20:19 Post-jolynn ctomy syndrome 58940495 Active 2024 SHAHEEN VALLE NP [address] [facility], [address], [place], [address], [facility] [employer] [facility] 5 14:20:30 Hypertensiv e disorder 67287127 Active 2024 SHAHEEN VALLE NP [address] [facility], [address], [place], [address], [facility] [employer] [facility] 5 14:20:36 Depressive disorder 54718183 Active 2024 SHAHEEN VALLE NP [address] [facility], [address], [place], [address], [facility] [employer] [facility] 5 14:20:44 Overactive urinary bladder 463982564 Active 2024 SHAHEEN VALLE NP [address] [facility], [address], [place], [address], [facility] [employer] [facility] 5 14:20:55 Gastroesoph ageal reflux disease without esophagitis 426047981 Active 2024 SHAHEEN VALLE NP [address] [facility], [address], [place], [address], [facility] [employer] [facility] 5 14:29:31 Problem Notes None recorded. Medical Equipment None Reported. Allergies Allergen ID Allergen Name Allergen Category Reaction Reaction Severity Criticality Documentation Date Start Date Code Code System Note Provider Name and Address Organization Details Recorded Time [id number] 2824e yellow dye medicatio n Not available Not available Not available 10/26/2024 92814 UNK #5, throa t close s Not Available Not Available Not Available [id number] 2824e ibuprofen medicatio n Not available Not available Not available 10/26/2024 5640 RxNorm throa t swell ing Not Available Not Available Not Available [id number] 2824e orange (food color) medicatio n Not available Not available Not available 10/26/2024 30838 UNK #8, throa t close s Not Available Not Available Not Available Medications Not known to be on any medication Vitals Date Recorded Heart rate Respiratory rate Body temperature Oxygen saturation Oxygen saturation in Arterial blood by Pulse oximetry Systolic blood pressure Diastolic blood pressure Provider Name and Address Organization Details Last Updated DateTime 5 70 /min 18 /min 97.8 [degF] 97 % 97 % 140 mm[Hg] 76 mm[Hg] SHAHEEN VALLE NP [address] [facility], [address], [place], [address], [facility] 5 11:39:10 Social History Question Answer Notes LastModified by Organizat ion Details LastModified Time Tobacco Smoking Status Former Smoker pt. unable to provide details SHAHEEN VALLE NP [address] [facility], [address], [place], [address], [facility] 10/26/2024 13:41:46 What Is Your Level Of Alcohol Consumption? None Unknown [email or web address] Information not available 10/26/2024 What Is Your Code Status? Full Code [email or web address] Information not available 10/26/2024 Do You Have A Medical Power Of Scaffold Setter? Yes HAs HCP - Invoke [email or web address] Information not available 10/26/2024 What Was The Date Of Your Most Recent Tobacco Screening? 10/26/2024 [email or web address] Information not available 10/26/2024 Do You Have An Out Of Hospital DNR? No [email or web address] Information not available 10/26/2024 Do You Use Any Illicit Or Recreational Drugs? No [email or web address] Information not available 10/26/2024 Has Tobacco Cessation Counseling Been Provided? No Information not available 10/26/2024 Do You Or Have You Ever Used Any Other Forms Of Tobacco Or Nicotine? No Information not available 10/26/2024 Sex: Unknown Functional Status None recorded. Mental Status None recorded. Family History Nothing Reported Notes:N/C Medical History No medical history recorded. Gynecological HistoryNo gynecological history recorded. Obstetrics History GPAL:G 0 P 0 0 0 0 Immunizations Vaccine Type Date Status Note Provider Nam e and Address Organization Details Recorded Time Tdap 0 completed Ildefonso bell, [facility] 10/27/2024 16:14:18 Td(adult) unspecified formulation 0 completed Ildefonso Dickerson [facility], [facility] 10/27/2024 16:14:30 pneumococcal polysaccharide PPV23 0 completed Ildefonso Dickerson [facility] 10/27/2024 16:14:43 influenza, unspecified formulation 0 completed Ildefonso Dickerson [facility] 10/27/2024 16:14:54 SARS-COV-2 (COVID-19) vaccine, UNSPECIFIED 1 completed Ildefonso Dickerson [facility] 10/27/2024 16:15:18 SARS-COV-2 (COVID-19) vaccine, UNSPECIFIED 1 completed Ildefonso Jayla [facility] 10/27/2024 16:15:24 Past Encounters Encounter ID Performer Location Encounter Start Date Encounter Closed Date Diagnosis/Indication Diagnosis SNOMED-CT Code Diagnosis ICD10 Code Diagnosis Note [id number] SHAHEEN VALLE NP [address] [address] 10/26/2024 13:45:29 10/27/2024 09:59:24 Closed fracture of right tibial plateau [id number] 2901327 S82.144D s/p fall at home.Right tibial plateau fracture confirmed on x ray and CTPlaced im immobilize r, made non weight bearing.Ne eds [facility] Ortho follow upPT OT eval and tx.Goal is to return home.Kay nue sched. and prn APAP for pain as well as ultram 50 mg bid prn.Monito r pain, VS, labs, CSM for changeAdju st meds prnUpdate Ortho with concerns Dementia 09679123 F03.C3 Severe, unable to converse appropriat angela. Word salad, unable to focus on task at hand.No dx. listed in PMH on ER paperwork, noted in text once.Orien carolin x 1 only.BIMS 0/15Contin ue home meds:seroq uel 25 mg bidhydroxy zine 25 mg bidsertral ine 25 mg qdmelatoni n 10 mg q HSremeron 30 mg q hsInvoke HCPPsych eval prn Depressive disorder 3548 9007 F32.A ?On zoloft 25 mg qd, remeron 30 mg qd - continueMo nitor mood, behaviorsP sych eval prn Post-yariel ectomy syndrome 20044221 M96.1 APAP bid and prnDiclofe nac to back and knees qid prnGabapen tin 800 mg bid prnultram 50 mg bid prn Hypertensive disorder 38 411219 I10 Continue norvasc 5 mg qdMonitor VS and need to adjust med prn. Overactive urinary bladder 107244670 N32.81 ?Continue oxybutinin 5 mg qd Gastroesop hageal reflux disease without esophagitis 394926546 K21.9 ?On prilosec 20 mg qd - continueMe ntion in ER paperwork of already scheduled GI appt. coinciding with stay in ER. Son wanted to take her to the appointmen t from the ER because she waited 9 months to get this appointmen t. Unclear what the appt. was for, but will need to reschedule as outpt. [id number] [facility] [address] 10/27/2024 09:44:18 10/28/2024 10:30:52 Closed fracture of right tibial plateau [id number] 8663991 S82.144D see HPIfractur e lateral tibial plateau and question avulsion fx to baseline of ACLRecomme nded NWB wtih immobilize r placed to f/u with orthofollo w ortho recs and update with concernsPT OT eval and treatmonit or pain control Dementia 24142445 F03.C3 appears with baseline dementiawi ll request prior PCP notesinvok e HCPcontinu e supportive caremonito r need for increased support in community vs need to transition to LTCmonitor for behaviors on seroquelps ych to eval Depressive disorder 9488 3571 F33.8 probable underlying depression maintained on zoloft and remeronpsy ch eval as above Post-yariel ectomy syndrome 57731854 M96.1 maintained ongabapent in 800 mg bid prnultram 50 mg bid prnmonitor utilizatio n and need to schedule Hypertensive disorder 38 566105 I10 norvasc 5 mg qdmonitor bp and need to titrate Overactive urinary bladder 919889578 N32.81 oxybutynin 5 mg qdmonitor for effecturol ogy eval prn Unsteady when walking 22 118438 R26.89 recurrent falls prior currently NWBtherapy as above Abdominal aortic aneurysm 381689635 I71.43 carrying dx added to PMHwill request prior notes [id number] [facility] VALLE [facility] [address] [place] [address] 11/02/2024 11:38:13 11/02/2024 11:44:42 Closed fracture of right tibial plateau [id number] 9206695 S82.144D s/p fall at home.Right tibial plateau fracture confirmed on x ray and CTPlaced im immobilize r, made non weight bearing.Ne eds [facility] Ortho follow upPT OT eval and tx. to continue.G oal is to return home.Kay nue sched. and prn APAP for pain as well as ultram 50 mg bid prn.Monito r pain, VS, labs, CSM for changeAdju st meds prnUpdate Ortho with concerns Dementia 02471031 F03.C3 Severe, unable to converse appropriat angela. Word salad, unable to focus on task at hand.No dx. listed in PMH on ER paperwork, noted in text once.Gaurav coe x 1 only.BIMS 0/15Contin ue home meds:seroq uel 25 mg bidhydroxy zine 25 mg bidsertral ine 25 mg qdmelatoni n 10 mg q HSremeron 30 mg q hsInvoke HCPPsych eval prn Depressive disorder 3548 9007 F32.A ?On zoloft 25 mg qd, remeron 30 mg qd - continueMo nitor mood, behaviorsP sych eval prn Post-yariel ectomy syndrome 30948857 M96.1 APAP bid and prnDiclofe nac to back and knees qid prnGabapen tin 800 mg bid prnultram 50 mg bid prn Hypertensive disorder 38 640201 I10 Continue norvasc 5 mg qdMonitor VS and need to adjust med prn. Overactive urinary bladder 225933613 N32.81 ?Continue oxybutinin 5 mg qd Gastroesop hageal reflux disease without esophagitis 588988690 K21.9 ?On prilosec 20 mg qd - continueMe ntion in ER paperwork of already scheduled GI appt. coinciding with stay in ER. Son wanted to take her to the appointmen t from the ER because she waited 9 months to get this appointmen t. Unclear what the appt. was for, but will need to reschedule as outpt. Health Concerns Section Related Observation LastModified by Organization Detai ls LastModified Time None Recorded Concern Status LastModified by Organization Details LastModified Time None Recorded Payers Encounter Date Sequence Insurance Name Policy Number Policy Sheets Covered Member ID Sheets Member ID Guarantor Name 11/02/2024 1 [facility] - DOS ON OR AFTER 2023 - MEDICARE ADVANTAGE [place] (MEDICARE REPLACEMENT/ADV ANTAGE - PPO) Brooklyn Banks [id number] Brooklyn Monroegos Notes Date Note Type Note Provider Name and Address Organization Details Recorded Time 11/02/2024 text/html Brooklyn is seen today for an acute visit. She is a 74 yo lady, admitted to [facility] 10/25/24 from [facility] after an ER visit due to a fall and right knee pain. She presented to [facility] 10/22/24 after falling at home the night before, trying to transfer to the toilet. She sustained right knee pain and swelling prompting transfer to ER. Baseline ambulation with cane and walker.Work up in the ER - labs stable. R knee xray showing suprapatellar effusion, chondrocalcinosis, possible lateral tibial plateau fracture. Knee CT done confirming a depressed fracture of the posterior aspect of the lateral tibial plateau, non displaced fracture of the base of the tibial eminence, possible avulsed fracture fragments extending to the base of the ACL, lipohemarthrosis, chondrocalcinosis.Jan mil in an immobilizer, made NWB with recs. to follow up with Dr. Renae. Since admission here, she has remained confused.Working with rehab, still requiring assist of others for care.VSSLabs stable. Nsg. notes reviewed, no new issues or concerns. Pt. currently confused, making no sense with conversation, even with a front desk agent. [facility] paperwork reports A&O x 1 only. Dx. of dementia noted in text only one time, no other documentation of impaired cognition noted. Requesting PCP records [facility] for review. ANNA high fall riskBIMS score 0/15 PMH: onychomycosis, aneurysm of infrarenal abdominal aorta, R jose luis OA, postlaminectomy syndrome, HTN, depression, ? impaired cognition/dementia, OABAssumed full code, no MOLSTInvoke HCP SHAHEEN VALLE NP [address] [facility], [address], [place], [address], [facility] 11/02/2024 11:44:40 OBGyn Episode No OBEpisode recorded.
--- OUTSIDE RECORDS SUMMARY | 2024-11-03 11:50 | XMS_ITS | Continuity of Care Document ---
Author Organization [facility], [facility] Address [address] [place] [address] Care Team Providers Care Rigger Apprentice Name Role Phone [facility] OTHER Assessment No [...] Time Closed fracture of right tibial plateau [id number] 9105 Active 2024 SHAHEEN VALLE NP [address] , [address], [place], [address], [facility] [employer] [facility] 5 14:01:06 Dementia 21550853 Active 2024 SHAHEEN VALLE NP [address] , [address], [place], [address], [facility] [employer] [facility] 5 14:19:29 Onychomycos is 216712816 Active 2024 SHAHEEN VALLE NP [address] , [address], [place], [address], [facility] [email or web address] 5 14:19:41 Abdominal aortic aneurysm 851422466 Active 2024 SHAHEEN VALLE NP [address] , [address], [place], [address], [facility] [employer] [facility] 5 14:20:06 Osteoarthri tis 401171938 Active 2024 R knee SHAHEEN VALLE NP [address] [facility], [address], [place], [address], 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 [employer] [facility] 5 14:20:30 Hypertensiv e disorder 41435836 Active 2024 SHAHEEN VALLE NP [address] [facility], [address], [place], [address], [facility] [employer] [facility] 5 14:20:36 Depressive disorder 14602389 Active 2024 SHAHEEN VALLE NP [address] [facility], [address], [place], [address], [facility] [employer] [facility] 5 14:20:44 Overactive urinary bladder 122919048 Active 2024 SHAHEEN VALLE NP [address] [facility], [address], [place], [address], [facility] [employer] [facility] 5 14:20:55 Gastroesoph ageal reflux disease without esophagitis 694497013 Active 2024 SHAHEEN VALLE NP [address] [facility], [address], [place], [address], [facility] [employer] [facility] 5 14:29:31 Problem Notes None recorded. Medical Equipment None Reported. Allergies Allergen ID Allergen Name Allergen Category Reaction Reaction Severity Criticality Documentation Date Start Date Code Code System Note Provider Name and Address Organization Details Recorded Time [id number] 4608375k5 2824e yellow dye medicatio n Not available Not available Not available 10/26/2024 84270 UNK #5, throa t close s Not Available Not Available Not Available [id number] 6283637r7 2824e ibuprofen medicatio n Not available Not available Not available 10/26/2024 5640 RxNorm throa t swell ing Not Available Not Available Not Available [id number] 107496546 1873541n3 2824e orange (food color) medicatio n Not available Not available Not available 10/26/2024 37866 UNK #8, throa t close s Not Available Not Available Not Available Medications Not known to be on any medication Vitals Date Recorded Body weight Heart rate Respiratory rate Systolic blood pressure Diastolic blood pressure Provider Name and Address Organization Details Last Updated DateTime 10/27/2024 47769.9 4 g 66 /min 18 /min 110 mm[Hg] 60 mm[Hg] Roger Tellez MD [address] [facility] [address] [facility], [address], [place], [address], [facility] [email or web address] 5 09:45:00 Social History Question Answer Notes LastModified by Organizat ion Details LastModified Time Tobacco Smoking Status Former Smoker pt. unable to provide details SHAHEEN VALLE NP [address] [facility], [address], [place], [address], [facility] [email or web address] 10/26/2024 13:41:46 What Is Your Level Of Alcohol Consumption? None Unknown [email or web address] Information not available 10/26/2024 What Is Your Code Status? Full Code [email or web address] Information not available 10/26/2024 Do You Have A Medical Power Of Classroom Assistant? Yes HAs HCP - Invoke [email or web address] Information not available 10/26/2024 What Was The Date Of Your Most Recent Tobacco Screening? 10/26/2024 [email or web address] Information not available 10/26/2024 Do You Have An Out Of Hospital DNR? No Information not available 10/26/2024 Do You Use Any Illicit Or Recreational Drugs? No [email or web address] Information not available 10/26/2024 Has Tobacco Cessation Counseling Been Provided? No [email or web address] Information not available 10/26/2024 Do You Or Have You Ever Used Any Other Forms Of Tobacco Or Nicotine? No [email or web address] Information not available 10/26/2024 Sex: Unknown Functional Status None recorded. Mental Status None recorded. Family History Nothing Reported Notes:N/C Medical History No medical history recorded. Gynecological HistoryNo gynecological history recorded. Obstetrics History GPAL:G 0 P 0 0 0 0 Immunizations Vaccine Type Date Status Note Provider Nam e and Address Organization Details Recorded Time Tdap 0 completed Ildefonso bell, [facility] [email or web address] 10/27/2024 16:14:18 Td(adult) unspecified formulation 0 completed Ildefonso bell, [facility] 10/27/2024 16:14:30 pneumococcal polysaccharide PPV23 0 completed Ildefonso bell, [facility] 10/27/2024 16:14:43 influenza, unspecified formulation 0 completed Ildefonso bell, [facility] 10/27/2024 16:14:54 SARS-COV-2 (COVID-19) vaccine, UNSPECIFIED 1 completed Ildefonso bell, [facility] 10/27/2024 16:15:18 SARS-COV-2 (COVID-19) vaccine, UNSPECIFIED 1 completed Ildefonso Dickerson [facility] 10/27/2024 16:15:24 Past Encounters Encounter ID Performer Location Encounter Start Date Encounter Closed Date Diagnosis/Indication Diagnosis SNOMED-CT Code Diagnosis ICD10 Code Diagnosis Note [id number] SHAHEEN VALLE NP [address] [place] [address] 10/26/2024 13:45:29 10/27/2024 09:59:24 Closed fracture of right tibial plateau [id number] 0365003 S82.144D s/p fall at home.Right tibial plateau fracture confirmed on x ray and CTPlaced im immobilize r, made non weight bearing.Ne eds [facility] Ortho follow upPT OT eval and tx.Goal is to return home.Kay nue sched. and prn APAP for pain as well as ultram 50 mg bid prn.Monito r pain, VS, labs, CSM for changeAdju st meds prnUpdate Ortho with concerns Dementia 58757534 F03.C3 Severe, unable to converse appropriat angela. Word salad, unable to focus on task at hand.No dx. listed in PMH on ER paperwork, noted in text once.Orien carolin x 1 only.BIMS 0/15Contin ue home meds:seroq uel 25 mg bidhydroxy zine 25 mg bidsertral ine 25 mg qdmelatoni n 10 mg q HSremeron 30 mg q hsInvoke HCPPsych eval prn Depressive disorder 1097 0212 F32.A ?On zoloft 25 mg qd, remeron 30 mg qd - continueMo nitor mood, behaviorsP sych eval prn Post-yariel ectomy syndrome 10153422 M96.1 APAP bid and prnDiclofe nac to back and knees qid prnGabapen tin 800 mg bid prnultram 50 mg bid prn Hypertensive disorder 38 203490 I10 Continue norvasc 5 mg qdMonitor VS and need to adjust med prn. Overactive urinary bladder 196846788 N32.81 ?Continue oxybutinin 5 mg qd Gastroesop hageal reflux disease without esophagitis 868673496 K21.9 ?On prilosec 20 mg qd - continueMe ntion in ER paperwork of already scheduled GI appt. coinciding with stay in ER. Son wanted to take her to the appointmen t from the ER because she waited 9 months to get this appointmen t. Unclear what the appt. was for, but will need to reschedule as outpt. [id number] [facility] [address] 10/27/2024 09:44:18 10/28/2024 10:30:52 Closed fracture of right tibial plateau [id number] 5316563 S82.144D see HPIfractur e lateral tibial plateau and question avulsion fx to baseline of ACLRecomme nded NWB wtih immobilize r placed to f/u with orthofollo w ortho recs and update with concernsPT OT eval and treatmonit or pain control Dementia 45034997 F03.C3 appears with baseline dementiawi ll request prior PCP notesinvok e HCPcontinu e supportive caremonito r need for increased support in community vs need to transition to LTCmonitor for behaviors on seroquelps ych to eval Depressive disorder 3548 9007 F33.8 probable underlying depression maintained on zoloft and remeronpsy ch eval as above Post-yariel ectomy syndrome 32958826 M96.1 maintained ongabapent in 800 mg bid prnultram 50 mg bid prnmonitor utilizatio n and need to schedule Hypertensive disorder 38 505742 I10 norvasc 5 mg qdmonitor bp and need to titrate Overactive urinary bladder 241181637 N32.81 oxybutynin 5 mg qdmonitor for effecturol ogy eval prn Unsteady when walking 22 441401 R26.89 recurrent falls prior currently NWBtherapy as above Abdominal aortic aneurysm 272153040 I71.43 carrying dx added to PMHwill request prior notes Health Concerns Section Related Observation LastModified by Organization Detai ls LastModified Time None Recorded Concern Status LastModified by Organization Details LastModified Time None Recorded Payers Encounter Date Sequence Insurance Name Policy Number Policy Sheets Covered Member ID Sheets Member ID Guarantor Name 10/27/2024 1 [facility] - DOS ON OR AFTER 2023 - MEDICARE ADVANTAGE [place] (MEDICARE REPLACEMENT/ADV ANTAGE - PPO) Brooklyn Banks [id number] Brooklyn Banks Notes Date Note Type Note Provider Name and Address Organization Details Recorded Time 10/27/19 25 text/htm l Patient is a 74 yo female admit from hospital presenting after fall while transferring to toilet, with right knee pain. Imaging positive for fracture lateral tibial plateau and question avulsion fx to baseline of ACL. Recommended NWB wtih immobilizer placed to f/u with ortho. Apparent significant cognitive impairment unsure of baseline PMH significant forOAhtnAAAdepressiongait instabilityimpaired cognition admit to facility for continued care and therapy eval and treat Roger Tellez MD [address] [place] [address], [address], [place], [address], [facility] [email or web address] 10/27/2024 10:08:15 OBGyn Episode No OBEpisode recorded.
--- OUTSIDE RECORDS SUMMARY | 2024-11-03 11:50 | XMS_ITS | Continuity of Care Document ---
Author Organization [facility], [facility] Address [address] [place] [address] Care Team Providers Care Rubber Calender Helper Name Role Phone [facility] OTHER Assessment No assessment [...] Time Closed fracture of right tibial plateau [id number] 9105 Active 2024 SHAHEEN VALLE NP [address] , [address], [place], [address], [facility] [employer] [facility] 5 14:01:06 Dementia 84837762 Active 2024 SHAHEEN VALLE NP [address] , [address], [place], [address], [facility] [employer] [facility] 5 14:19:29 Onychomycos is 390863102 Active 2024 SHAHEEN VALLE NP [address] , [address], [place], [address], [facility] [employer] 5 14:19:41 Abdominal aortic aneurysm 952230244 Active 2024 SHAHEEN VALLE NP [address] , [address], [place], [address], [facility] [employer] [facility] 5 14:20:06 Osteoarthri tis 423449916 Active 2024 R knee SHAHEEN VALLE NP [address] [facility], [address], [place], [address], [facility] [employer] [facility] 5 14:20:19 Post-jolynn ctomy syndrome 47584077 Active 2024 SHAHEEN VALLE NP [address] [facility], [address], [place], [address], [facility] [employer] [facility] 5 14:20:30 Hypertensiv e disorder 04666238 Active 2024 SHAHEEN VALLE NP [address] [facility], [address], [place], [address], [facility] [employer] [facility] 5 14:20:36 Depressive disorder 70123233 Active 2024 SHAHEEN VALLE NP [address] [facility], [address], [place], [address], [facility] [employer] [facility] 5 14:20:44 Overactive urinary bladder 478735122 Active 2024 SHAHEEN VALLE NP [address] [facility], [address], [place], [address], [facility] [employer] [facility] 5 14:20:55 Gastroesoph ageal reflux disease without esophagitis 536977979 Active 2024 SHAHEEN VALLE NP [address] [facility], [address], [place], [address], [facility] [employer] [facility] 5 14:29:31 Problem Notes None recorded. Medical Equipment None Reported. Allergies Allergen ID Allergen Name Allergen Category Reaction Reaction Severity Criticality Documentation Date Start Date Code Code System Note Provider Name and Address Organization Details Recorded Time [id number] 992921343 6810455h3 2824e yellow dye medicatio n Not available Not available Not available 10/26/2024 58172 UNK #5, throa t close s Not Available Not Available Not Available [id number] 118844545 8527900p0 2824e ibuprofen medicatio n Not available Not available Not available 10/26/2024 5640 RxNorm throa t swell ing Not Available Not Available Not Available [id number] 925550349 5669294m8 2824e orange (food color) medicatio n Not available Not available Not available 10/26/2024 65857 UNK #8, throa t close s Not Available Not Available Not Available Medications Not known to be on any medication Vitals Date Recorded Heart rate Respiratory rate Body temperature Oxygen saturation Oxygen saturation in Arterial blood by Pulse oximetry Systolic blood pressure Diastolic blood pressure Provider Name and Address Organization Details Last Updated DateTime 5 65 /min 18 /min 97.6 [degF] 94 % 94 % 110 mm[Hg] 60 mm[Hg] SHAHEEN VALLE NP [address] [facility], [address], [place], [address], [employer] 5 14:22:05 Social History Question Answer Notes LastModified by Organizat ion Details LastModified Time Tobacco Smoking Status Former Smoker pt. unable to provide details SHAHEEN VALLE NP [address] [facility], [address], [place], [address], [employer] 10/26/2024 13:41:46 What Is Your Level Of Alcohol Consumption? None Unknown [email or web address] Information not available 10/26/2024 What Is Your Code Status? Full Code Information not available 10/26/2024 Do You Have A Medical Power Of Rehabilitation Program Manager? Yes HAs HCP - Invoke [email or web address] Information not available 10/26/2024 What Was The Date Of Your Most Recent Tobacco Screening? 10/26/2024 [email or web address] Information not available 10/26/2024 Do You Have An Out Of Hospital DNR? No [email or web address] Information not available 10/26/2024 Do You Use Any Illicit Or Recreational Drugs? No [email or web address] Information not available 10/26/2024 Has Tobacco Cessation Counseling Been Provided? No [email or web address] Information not available 10/26/2024 Do You Or Have You Ever Used Any Other Forms Of Tobacco Or Nicotine? No [email or web address] Information not available 10/26/2024 Sex: Unknown Functional Status None recorded. Mental Status None recorded. Family History Nothing Reported Notes:N/C Medical History No medical history recorded. Gynecological HistoryNo gynecological history recorded. Obstetrics History GPAL:G 0 P 0 0 0 0 Immunizations Vaccine Type Date Status Note Provider Nam e and Address Organization Details Recorded Time Tdap 0 completed Ildefonso bell, [employer] [facility] 10/27/2024 16:14:18 Td(adult) unspecified formulation 0 completed Ildefonso Dickerson [facility] 10/27/2024 16:14:30 pneumococcal polysaccharide PPV23 0 completed Ildefonso Dickerson [facility] 10/27/2024 16:14:43 influenza, unspecified formulation 0 completed Ildefonso Dickerson [facility] 10/27/2024 16:14:54 SARS-COV-2 (COVID-19) vaccine, UNSPECIFIED 1 completed Ildefonso Dickerson [facility] 10/27/2024 16:15:18 SARS-COV-2 (COVID-19) vaccine, UNSPECIFIED 1 completed Ildefonso Jayla [facility] 10/27/2024 16:15:24 Past Encounters Encounter ID Performer Location Encounter Start Date Encounter Closed Date Diagnosis/Indication Diagnosis SNOMED-CT Code Diagnosis ICD10 Code Diagnosis Note [id number] SHAHEEN VALLE NP [address] [address] 10/26/2024 13:45:29 10/27/2024 09:59:24 Closed fracture of right tibial plateau [id number] 8849750 S82.144D s/p fall at home.Right tibial plateau fracture confirmed on x ray and CTPlaced im immobilize r, made non weight bearing.Ne eds [facility] Ortho follow upPT OT eval and tx.Goal is to return home.Kay nue sched. and prn APAP for pain as well as ultram 50 mg bid prn.Monito r pain, VS, labs, CSM for changeAdju st meds prnUpdate Ortho with concerns Dementia 36615114 F03.C3 Severe, unable to converse appropriat angela. Word salad, unable to focus on task at hand.No dx. listed in PMH on ER paperwork, noted in text once.Orien carolin x 1 only.BIMS 0/15Contin ue home meds:seroq uel 25 mg bidhydroxy zine 25 mg bidsertral ine 25 mg qdmelatoni n 10 mg q HSremeron 30 mg q hsInvoke HCPPsych eval prn Depressive disorder 8996 3594 F32.A ?On zoloft 25 mg qd, remeron 30 mg qd - continueMo nitor mood, behaviorsP sych eval prn Post-yariel ectomy syndrome 51604798 M96.1 APAP bid and prnDiclofe nac to back and knees qid prnGabapen tin 800 mg bid prnultram 50 mg bid prn Hypertensive disorder 38 362464 I10 Continue norvasc 5 mg qdMonitor VS and need to adjust med prn. Overactive urinary bladder 509647905 N32.81 ?Continue oxybutinin 5 mg qd Gastroesop hageal reflux disease without esophagitis 418929431 K21.9 ?On prilosec 20 mg qd - [...] Member ID Sheets Member ID Guarantor Name 10/26/2024 [facility] AFTER 2023 - MEDICARE ADVANTAGE [place]IC[place] REPLACEMENT/ADV ANTAGE - PPO) Brooklyn Kwasi Banks [id number] Brooklyn Kwasi Banks Notes Date Note Type Note Provider Name and Address Organization Details Recorded Time 10/26/2024 text/html Brooklyn is a 74 yo lady, admitted to [facility] 10/25/24 from [facility] after an ER visit due to a fall and right knee pain. She presented to [facility] 10/22/24 after falling at home the [...] recs. to follow up with Dr. Renae. Pt. currently confused, making no sense with conversation, even with a industrial engineering. [facility] paperwork reports A&O x 1 only. Dx. of dementia noted in text only one time, no other documentation of impaired cognition noted. Requesting PCP records [facility] for review. [place]ST[place]O high fall riskBIMS score 0/15 PMH: onychomycosis, aneurysm of infrarenal abdominal aorta, R jose luis OA, postlaminectomy syndrome, HTN, depression, ? impaired cognition/dementia, OABAssumed full code, no MOLSTInvoke HCP SHAHEEN VALLE NP [address] [place] [address], [address], [place], [address], [facility] - [employer] [facility] 10/26/2024 14:38:04 OBGyn Episode No OBEpisode recorded.
== END 2024-11-03 10:44 | disposition home or self-care (01) ==
PROVIDERS: PCP Physician Assistant; Visit Provider Physician Assistant
DX: S82.141A Displaced bicondylar fracture of right tibia, initial encounter for closed fracture (principal)
CPT/HCPCS: 99203; G2211

== ENCOUNTER → 2024-11-03 10:04 | Outpatient (BNVA) | payer OTHER, SELFPAY | PROVIDERS: PCP Physician Assistant; Visit Provider Physician Assistant | DX: S82.141A Displaced bicondylar fracture of right tibia, initial encounter for closed fracture (principal); W19.XXXA Unspecified fall, initial encounter; Y93.9 Activity, unspecified; Y92.9 Unspecified place or not applicable; Y99.9 Unspecified external cause status | CPT/HCPCS: 99202 ==

== ENCOUNTER 2024-12-14 09:44 | Outpatient (AMB) | payer MEDICARE, MEDICAID, SELFPAY ==
--- NOTE | 2024-12-14 10:01 | A.OFFVIS_ITS ---
Intake Visit Reasons: FC-RT tibial plateau fx, DOI 10/21/24 Intake Note: Brooklyn is a 74 year old female who presents today for a follow up of RT tibia plateau fx, DOI 10/21/24. Allergies yellow dye [Yellow Dye] Allergy (Severe, Verified 11/03/24 10:26) YELLOW #5 THROAT CLOSES ibuprofen [From Motrin] Allergy (Unknown, Verified 11/03/24 10:26) SWELL THROAT [place] #[id number] Allergy (Severe, Uncoded 11/03/24 10:26) ORANGE #8 DYE THROAT CLOSES HPI HPI FC-RT tibial plateau fx, DOI 10/21/24: Details: 74-year-old female with severe dementia returns to the office today follow-up right tibial plateau fracture. She presents in a wheelchair today accompanied by a pharmacognosy teacher from her facility. She is not wearing her knee brace. Top Trimmer states that is familiar with her and states that she does participate in physical therapy when she is willing. She does weightbear as tolerated. Does not express any concerns for pain. We tried to contact the son who was present during the last visit and expressed interest in today's visit however he was unreachable. [facility] Medical History External hemorrhoid Pre-ulcerative corn or callous Dysuria Onychomycosis Aneurysm of infrarenal abdominal aorta Osteoarthritis of right knee Postlaminectomy syndrome Surgical History H/O arthroscopy of shoulder H/O lumbosacral spine surgery H/O cervical spine surgery No pertinent past surgical history Family History Father No problems noted. Mother No problems noted. Social History Housing: House Alcohol intake: never Patient Tobacco Use Status: Former Tobacco user Cigarettes Per Day: 5 e-Cigarette/Vaping Use: Never Used Second Hand Smoke Exposure: No Advance Directives Date on File: 10/24/24 service: No Current occupational status: disabled Cognitive needs: Yes (cane, walker) Hearing needs: No Vision needs: Yes (glasses) Review of Systems Const All systems reviewed & are unremarkable except as noted in HPI and below Physical Exam Const General: cooperative and no acute distress Orientation/consciousness: patient oriented x3 Resp Effort & Inspection: normal respiratory effort and able to speak in complete sentences Cardio Peripheral pulses: Peripheral pulses 2+ throughout Neuro General: patient oriented x3 Extrem Other: Right knee normal to inspection. No tenderness to palpation along the proximal tibia. She can fully extend the knee. Calf supple nontender neurovascularly intact. Results Reviewed Results Reviewed: X-rays of the right knee obtained in the office today and reviewed by me show stable proximal tibia fracture without signs of displacement Assessment & Plan Assessment & Plan (1) Tibial plateau fracture, right: Code(s): S82.141A - Displaced bicondylar fracture of right tibia, initial encounter for closed fracture Category: Medical Qualifiers: Encounter type: subsequent encounter Fracture type: closed Fracture healing: with routine healing Qualified Code(s): S82.141D - Displaced bicondylar fracture of right tibia, subsequent encounter for closed fracture with routine healing Plan: She can weightbear as tolerated since she has been since I last saw her. She can participate in activities as tolerated. Physical therapy for range of motion gait training and strengthening exercises. I would like to see her back in 6 weeks with x-rays, sooner if needed. Orders: Orders XR knee RT 2V Today M25.569 - Pain in unspecified knee Coding Level of Care Code Complex EM visit Add On G2211 Diagnoses Closed fracture of right tibial plateau with routine healing, subsequent encounter S82.141D Encounter type: subsequent encounter Fracture type: closed Fracture healing: with routine healing
--- OUTSIDE RECORDS SUMMARY | 2024-12-14 11:20 | XMS_ITS | Continuity of Care Document ---
Author Organization [facility], [facility] Address [address] [place] [address] Care Team Providers Care Admissions Supervisor Name Role Phone [facility] OTHER Assessment [...] Time Closed fracture of right tibial plateau [id number] 9105 Active 2024 SHAHEEN VALLE NP [address] , [address], [place], [address], [facility] [employer] [facility] 5 14:01:06 Dementia 31995519 Active 2024 SHAHEEN VALLE NP [address] , [address], [place], [address], [facility] [employer] [facility] 5 14:19:29 Onychomycos is 537380709 Active 2024 SHAHEEN VALLE NP [address] , [address], [place], [address], [facility] [employer] 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 5 14:20:36 Depressive disorder 10287603 Active 2024 SHAHEEN VALLE NP [address] [facility], [address], [place], [address], [facility] [employer] [facility] 5 14:20:44 Overactive urinary bladder 787990703 Active 2024 SHAHEEN VALLE NP [address] [facility], [address], [place], [address], [facility] [employer] [facility] 5 14:20:55 Gastroesoph ageal reflux disease without esophagitis 123473036 Active 2024 SHAHEEN VALLE NP [address] [facility], [address], [place], [address], [facility] [employer] [facility] 5 14:29:31 Problem Notes None recorded. Medical Equipment None Reported. Allergies Allergen ID Allergen Name Allergen Category Reaction Reaction Severity Criticality Documentation Date Start Date Code Code System Note Provider Name and Address Organization Details Recorded Time 57678 yellow dye medicatio n Not available Not available Not available 10/26/2024 41870 UNK #5, throa t close s Not Available Not Available Not Available 18176 ibuprofen medicatio n Not available Not available Not available 10/26/2024 5640 RxNorm throa t swell ing Not Available Not Available Not Available 09067 orange (food color) medicatio n Not available Not available Not available 10/26/2024 93024 UNK #8, throa t close s Not Available Not Available Not Available Medications Not known to be on any medication Vitals Date Recorded Body weight Heart rate Respiratory rate Body temperature Oxygen saturation Oxygen saturation in Arterial blood by Pulse oximetry Systolic blood pressure Diastolic blood pressure Provider Name and Address Organization Details Last Updated DateTime 5 61844.6 4 g 78 /min 18 /min 97.9 [degF] 97 % 97 % 117 mm[Hg] 68 mm[Hg] Ella Larose NP [address] [facility], [address], [place], [address], [facility] [employer] [facility] 5 14:06:56 Social History Question Answer Notes LastModified by Organizat ion Details LastModified Time Tobacco Smoking Status Former Smoker pt. unable to provide details SHAHEEN VALLE NP [address] [facility], [address], [place], [address], [facility] [employer] 10/26/2024 13:41:46 What Is Your Level Of Alcohol Consumption? None Unknown [email or web address] Information not available 10/26/2024 What Is Your Code Status? Full Code Information not available 10/26/2024 Do You Have A Medical Power Of Funeral Director And Embalmer? Yes HAs HCP - Invoke [email or web address] Information not available 10/26/2024 What Was The Date Of Your Most Recent Tobacco Screening? 10/26/2024 Information not available 10/26/2024 Do You Have An Out Of Hospital DNR? No [email or web address] Information not available 10/26/2024 Do You Use Any Illicit Or Recreational Drugs? No Information not available 10/26/2024 Has Tobacco Cessation Counseling Been Provided? No [email or web address] Information not available 10/26/2024 Do You Or Have You Ever Used Any Other Forms Of Tobacco Or Nicotine? No [email or web address] Information not available 10/26/2024 Sex: Unknown Functional Status None recorded. Mental Status None recorded. Family History Nothing Reported Notes:N/C Medical History No medical history recorded. Gynecological HistoryNo gynecological history recorded. Obstetrics History GPAL:G 0 P 0 0 0 0 Immunizations Vaccine Type Date Status Note Provider Nam e and Address Organization Details Recorded Time Tdap 0 completed Ildefonso bell, [facility] [employer] [facility] 10/27/2024 16:14:18 Td(adult) unspecified formulation 0 completed Ildefonso bell [facility] [employer] [facility] 10/27/2024 16:14:30 pneumococcal polysaccharide PPV23 0 completed [facility]ef[facility] DowMarvin [facility] 10/27/2024 16:14:43 influenza, unspecified formulation 0 completed Ildefonso AdenJonahMuir null, [facility] 10/27/2024 16:14:54 SARS-COV-2 (COVID-19) vaccine, UNSPECIFIED 1 completed [facility] 10/27/2024 16:15:18 SARS-COV-2 (COVID-19) vaccine, UNSPECIFIED 1 completed Ildefonso DowmarybelJonahMuir [facility] 10/27/2024 16:15:24 Past Encounters Encounter ID Performer Location Encounter Start Date Encounter Closed Date Diagnosis/Indication Diagnosis SNOMED-CT Code Diagnosis ICD10 Code Diagnosis Note [id number] SHAHEEN VALLE NP [facility] [address] [place] [address] 11/02/2024 11:38:13 11/04/2024 14:34:17 Closed fracture of right tibial plateau [id number] 8038541 S82.144D s/p fall at home.Right tibial plateau fracture confirmed on x ray and CTPlaced im immobilize r, made non weight bearing.Ne eds [facility] Ortho follow upPT OT eval and tx. to continue.G oal is to return home.Kay nue sched. and prn APAP for pain as well as ultram 50 mg bid prn.Monito r pain, VS, labs, CSM for changeAdju st meds prnUpdate Ortho with concerns Dementia [id number] F03.C3 Severe, unable to converse appropriat angela. Word salad, unable to focus on task at hand.No dx. listed in PMH on ER paperwork, noted in text once.Orien carolin x 1 only.BIMS 0/15Contin ue home meds:seroq uel 25 mg bidhydroxy zine 25 mg bidsertral ine 25 mg qdmelatoni n 10 mg q HSremeron 30 mg q hsInvoke HCPPsych eval prn Depressive disorder 0210 0526 F32.A ?On zoloft 25 mg qd, remeron 30 mg qd - continueMo nitor mood, behaviorsP sych eval prn Post-yariel ectomy syndrome 00194612 M96.1 APAP bid and prnDiclofe nac to back and knees qid prnGabapen tin 800 mg bid prnultram 50 mg bid prn Hypertensive disorder 38 952327 I10 Continue norvasc 5 mg qdMonitor VS and need to adjust med prn. Overactive urinary bladder 321262874 N32.81 ?Continue oxybutinin 5 mg qd Gastroesop hageal reflux disease without esophagitis 398444989 K21.9 ?On prilosec 20 mg qd - continueMe ntion in ER paperwork of already scheduled GI appt. coinciding with stay in ER. Son wanted to take her to the appointmen t from the ER because she waited 9 months to get this appointmen t. Unclear what the appt. was for, but will need to reschedule as outpt. [id number] Ella Larose NP [address] [address] 11/07/2024 08:58:40 11/09/2024 10:45:50 Closed fracture of right tibial plateau [id number] 1842287 S82.144D s/p fall at home with transferri ng.She followed up with ortho on 11/03/24 with new rec:right tibial plateau NWB with brace for transferso lesa to perform rom of kneeok to exercise quadfu 6 weeks on 12/14/24 @ 945 am with helpdesk specialist as she is not able to converse with notable confusion. Right tibial plateau fracture confirmed on x ray and CTPlaced im immobilize r, made non weight bearing.di clofenac 1% topically to knees qidContinu e sched. and prn APAP for pain as well as ultram 50 mg bid prn.PT OT eval and tx. to continue.G oal is to return home.Monit or pain, VS, labs, CSM for changeAdju st meds prnUpdate Ortho with concerns Dementia [id number] F03.C3 Severe, unable to converse appropriat angela. Word salad, unable to focus on task at hand.No dx. listed in PMH on ER paperwork, noted in text once.Orien carolin x 1 only.BIMS 0/15Contin ue:seroque l 25 mg bidhydroxy zine 25 mg bidsertral ine 25 mg qdmelatoni n 10 mg q HSremeron 30 mg q hsInvoke HCPPsych eval prn Depressive disorder 0329 9007 F32.A zoloft 25 mg qdremeron 30 mg qdMonitor mood, behaviorsP sych eval prn Post-yariel ectomy syndrome 66334642 M96.1 APAP bid and prnDiclofe nac to back and knees qid prnGabapen tin 800 mg bid prnultram 50 mg bid prn Hypertensive disorder 38 303082 I10 Continue norvasc 5 mg qdMonitor VS and need to adjust med prn. Gastroesop hageal reflux disease without esophagitis 452504047 K21.9 cont prilosec 20 mg qd ?had scheduled GI appt.but missed it due ot ERreschedu le GI as outpt. Asthenia 30821285 R53.1 continue PT OT heremonito r [id number] SHAHEEN VALLE, KELLEY [employer] [address] 11/16/2024 13:55:26 11/18/2024 09:50:50 Closed fracture of right tibial plateau [id number] 7407494 S82.144D s/p fall at home.Right tibial plateau fracture confirmed on x ray and CTPlaced im immobilize r, made non weight bearing. C Ortho follow up on 11/03, remains NWB.OK to transfer with brace, OK for knee ROM and quad exercises. PT OT eval and tx. to continue.G oal is to return home.Kay nue sched. and prn APAP for pain as well as ultram 50 mg bid prn.Monito r pain, VS, labs, CSM for changeAdju st meds prnUpdate Ortho with concernsNe xt appt. 12/14 Dementia [id number] F03.C3 Severe, unable to converse appropriat angela. [...] eval prn Depressive disorder 3548 9007 F32.A Continue zoloft 25 mg qd, remeron 30 mg qdMonitor mood, behaviorsP sych eval prn Post-yariel ectomy syndrome 26534101 M96.1 Continue:A PAP bid and prnDiclofe nac to back and knees qid prnGabapen tin 800 mg bid prnultram 50 mg bid prn Hypertensive disorder 38 866250 I10 VSSContinu e norvasc 5 mg qdMonitor VS and need to adjust med prn. Overactive urinary bladder 226872562 N32.81 Continue oxybutinin 5 mg qdMonitor sx. Gastroesop hageal reflux disease without esophagitis 813467001 K21.9 Continue prilosec 20 mg qd.Mention in ER paperwork of already scheduled GI appt. coinciding with stay in ER. Son wanted to take her to the appointmen t from the ER because she waited 9 months to get this appointmen t. Unclear what the appt. was for, but will need to reschedule as outpt. [id number] Ella Larose NP [address] [address] 11/24/2024 11:42:30 11/25/2024 13:50:18 Closed fracture of right tibial plateau 6233917390 7444370 S82.144D s/p fall at home here for rehab and therapyRig ht tibial plateau fracture confirmed on x ray and CTPlaced im immobilize r, made non weight bearing. C Ortho follow up on 11/03, remains NWB.OK to transfer with brace, OK for knee ROM and quad exercises. PT OT eval and tx. to continue with therapyGoa l is to return home.Kay nuesched. and prn APAP for painultram 50 mg bid prn.Monito r pain, VS, labs, CSM for changeAdju st meds prnUpdate Ortho with concernsNe xt appt. 12/14 with ortho Dementia [id number] F03.C3 Severe, unable to converse appropriat angela.Bethany h speakingWo rd salad, unable to focus on task at hand.No dx. listed in PMH on ER paperwork, noted in text once.Orien carolin x 1 only.BIMS 0/15 on admits invokedCon tinue:sero quel 25 mg bidhydroxy zine 25 mg bidsertral ine 25 mg qdmelatoni n 10 mg q HSremeron 30 mg q hsPsych eval prn Depressive disorder 3548 9007 F32.A stableCont inuezoloft 25 mg qdremeron 30 mg qdMonitor mood, behaviorsP sych eval prn Post-yariel ectomy syndrome 42134738 M96.1 stableCont inue:APAP bid and prnDiclofe nac to back and knees qid prnGabapen tin 800 mg bid prnultram 50 mg bid prn Hypertensive disorder 38 501002 I10 VSSContinu enorvasc 5 mg qdMonitor VS and need to adjust med prn. Overactive urinary bladder 094195234 N32.81 Continueox ybutinin 5 mg qdMonitor sx. [id number] Ella Larose, [facility] [address] 12/02/2024 08:19:51 12/05/2024 10:21:42 Dementia [id number] F03.C3 Severe, unable to converse appropriat angela.Spanis h speakingco ntinues with nonsesical Word salad, unable to focus on task at hand.No dx. listed in PMH on ER paperwork, noted in text once.Orien carolin x 1 only.BIMS 0/15 on admits invokedCon tinue:sero quel 25 mg bidhydroxy zine 25 mg bidsertral ine 25 mg qdmelatoni n 10 mg q HSremeron 30 mg q hsPsych eval prn Closed fra cture of right tibial plateau [id number] 7563952 S82.144D s/p fall at home here for rehab and therapyRig ht tibial plateau fracture confirmed on x ray and CTPlaced im immobilize r, made non weight bearing. [facility] Ortho follow up on 11/03, remainsNWB .OK to transfer with brace, OK for knee ROM and quad exercises. PT OT eval and tx. to continue with therapyGoa l is to return home.Kay nuesched. and prn APAP for painultram 50 mg bid prn.Monito r pain, VS, labs, CSM for changeAdju st meds prnUpdate Ortho with concernsNe xt appt. 12/14 with ortho Depressive disorder 3259 9002 F32.A stableCont inuezoloft 25 mg qdremeron 30 mg qdMonitor mood, behaviorsP sych eval prn Post-yariel ectomy syndrome 57170072 M96.1 stableCont inue:APAP bid and prnDiclofe nac to back and knees qid prnGabapen tin 800 mg bid prnultram 50 mg bid prn Hypertensive disorder 38 346346 I10 VSSContinu enorvasc 5 mg qdMonitor VS and need to adjust med prn. Overactive urinary bladder 094707949 N32.81 Continueox ybutinin 5 mg qdMonitor sx. Health Concerns Section Related Observation LastModified by Organization Detai ls LastModified Time None Recorded Concern Status LastModified by Organization Details LastModified Time None Recorded Payers Encounter Date Sequence Insurance Name Policy Number Policy Sheets Covered Member ID Sheets Member ID Guarantor Name 12/02/2024 1 [place]: [employer] [place] Villalpando-B [id number] Brooklyn Banks 12/02/2024 2 [place] [facility] Brooklyn Banks [id number] Brooklyn Banks Notes Date Note Type Note Provider Name and Address Organization Details Recorded Time 12/02/2024 text/html Pt is seen today for an acute rounding visit. PMH: onychomycosis, aneurysm of infrarenal abdominal aorta, R jose luis OA, postlaminectomy syndrome, HTN, depression, ? impaired cognition/dementia, OAB Pt is a 74 yo lady, admitted to [facility] 10/25/24 from [facility] after an ER visit due to a fall and right knee pain here for rehab. Since here at [facility]:She continues to work with therapy remaining confused with poor retention but progressing slowly. She remains with stable vitals here and no new concerns. Last follow up with Ortho on 11/03/24, still NWB, needs brace for transfers. OK for knee ROM and quad exercises. Follow up planned on 12/14 with ortho. She was initially planned to go home next week, however family does not feel they can met her needs at this time and requests she stay a bit longer per neonatal social worker. On exam, she is sitting in dining room in NAD confused and nonsensical at baseline and smiling speaking in Welsh. Overall weight stable at 110lbs over last few months. of note: She presented to [facility] 10/22/24 after falling at home, sustained right knee pain and swelling prompting transfer to ER. Baseline ambulation with cane and walker.Her Work up in the ER - labs stable. R knee xray showing suprapatellar effusion, chondrocalcinosis, possible lateral tibial plateau fracture. Knee CT done confirming a depressed fracture of the posterior aspect of the lateral tibial plateau, non displaced fracture of the base of the tibial eminence, possible avulsed fracture fragments extending to the base of the ACL, lipohemarthrosis, chondrocalcinosis. Placed in an immobilizer, made NWB with recs. to follow up with Dr. Renae. ANNA high fall riskBIMS score 0/15Assumed full code, no MOLSTInvoke HCP Ella Larose, KELLEY [address] [facility], [address], [place], [address], [facility] [employer] 12/02/2024 14:15:30 OBGyn Episode No OBEpisode recorded.
--- OUTSIDE RECORDS SUMMARY | 2024-12-14 11:20 | XMS_ITS | Patient Health Record ---
Author Organization [employer] Address [address] [facility] [address] [place] [address] Support Name Relationship Address Phone Brooklyn Villalpando Guarantor Unknown [phone] Reason For Referral No Information Plan Of Treatment No Information
--- OUTSIDE RECORDS SUMMARY | 2024-12-14 11:21 | XMS_ITS | Continuity of Care Document ---
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 Role Phone [facility] OTHER [...] Time Closed fracture of right tibial plateau 2422620691748 9105 Active 2024 SHAHEEN VALLE NP [address] , [address], [place], [address], [facility] [employer] [facility] 5 14:01:06 Dementia 06184026 Active 2024 SHAHEEN VALLE NP [address] , [address], [place], [address], [facility] [employer] [facility] 5 14:19:29 Onychomycos is 842332825 Active 2024 SHAHEEN VALLE NP [address] , [address], [place], [address], [facility] [employer] 5 14:19:41 Abdominal aortic aneurysm 245349883 Active 2024 SHAHEEN VALLE NP [address] , [address], [place], [address], [facility] [employer] [facility] 5 14:20:06 Osteoarthri tis 462506983 Active 2024 R knee SHAHEEN VALLE NP [address] [facility], [address], [place], [address], [facility] [employer] [facility] 5 14:20:19 Post-jolynn ctomy syndrome 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 Active 2024 SHAHEEN VALLE NP [address] [facility], [address], [place], [place], [address], [facility] [employer] [facility] 5 14:20:30 Hypertensiv e disorder 26634381 Active 2024 SHAHEEN VALLE NP [address] [facility], [address], [place], [place], [address], [facility] [employer] [facility] 5 14:20:36 Depressive disorder 14294720 Active 2024 SHAHEEN VALLE NP [address] [facility], [address], [place], [address], [facility] [employer] [facility] 5 14:20:44 Overactive urinary bladder 519066324 Active 2024 SHAHEEN VALLE NP [address] [facility], [address], [place], [address], [facility] [employer] [facility] 5 14:20:55 Gastroesoph ageal reflux disease without esophagitis 260193375 Active 2024 SHAHEEN VALLE NP [address] [facility], [address], [place], [address], [facility] [employer] [facility] 5 14:29:31 Problem Notes None recorded. Medical Equipment None Reported. Allergies Allergen ID Allergen Name Allergen Category Reaction Reaction Severity Criticality Documentation Date Start Date Code Code System Note Provider Name and Address Organization Details Recorded Time 84510 yellow dye medicatio n Not available Not available Not available 10/26/2024 46300 UNK #5, throa t close s Not Available Not Available Not Available 90734 ibuprofen medicatio n Not available Not available Not available 10/26/2024 5640 RxNorm throa t swell ing Not Available Not Available Not Available 52909 orange (food color) medicatio n Not available Not available Not available 10/26/2024 70156 UNK #8, throa t close s Not Available Not Available Not Available Medications Not known to be on any medication Vitals Date Recorded Body weight Heart rate Respiratory rate Body temperature Oxygen saturation Oxygen saturation in Arterial blood by Pulse oximetry Systolic blood pressure Diastolic blood pressure Provider Name and Address Organization Details Last Updated DateTime 5 84775.1 6 g 75 /min 18 /min 97.7 [degF] 96 % 96 % 105 mm[Hg] 71 mm[Hg] Ella Larose NP [address] [facility], [address], [place], [address], [facility] [employer] 5 11:43:01 Social History Question Answer Notes LastModified by Organizat ion Details LastModified Time Tobacco Smoking Status Former Smoker pt. unable to provide details SHAHEEN VALLE NP [address] [facility], [address], [place], [address], [facility] [employer] 10/26/2024 13:41:46 What Is Your Level Of Alcohol Consumption? None Unknown [email or web address] Information not available 10/26/2024 What Is Your Code Status? Full Code [email or web address] Information not available 10/26/2024 Do You Have A Medical Power Of Precision Crop Manager? Yes HAs HCP - Invoke [email or web address] Information not available 10/26/2024 What Was The Date Of Your Most Recent Tobacco Screening? 10/26/2024 [email or web address] Information not available 10/26/2024 Do You Have An Out Of Hospital DNR? No [email or web address] Information not available 10/26/2024 Do You Use Any Illicit Or Recreational Drugs? No Information not available 10/26/2024 Has Tobacco Cessation Counseling Been Provided? No Information not available 10/26/2024 Do You Or Have You Ever Used Any Other Forms Of Tobacco Or Nicotine? No [email or web address] Information not available 10/26/2024 Sex: Unknown Functional Status None recorded. Mental Status None recorded. Family History Nothing Reported Notes:N/C Medical History No medical history recorded. Gynecological HistoryNo gynecological history recorded. Obstetrics History GPAL:G 0 P 0 0 0 0 Immunizations Vaccine Type Date Status Note Provider Nam e and Address Organization Details Recorded Time Tdap 0 completed Ildefonso bell, [facility] [employer] [facility] 10/27/2024 16:14:18 Td(adult) unspecified formulation 0 completed Ildefonso bell [facility] 10/27/2024 16:14:30 pneumococcal polysaccharide PPV23 0 completed Ildefonso AdenGet null, [facility] 10/27/2024 16:14:43 influenza, unspecified formulation 0 completed Ildefonso Dickerson null, [facility] 10/27/2024 16:14:54 SARS-COV-2 (COVID-19) vaccine, UNSPECIFIED 1 completed Ildefonso GamboaMuir null, [facility] 10/27/2024 16:15:18 SARS-COV-2 (COVID-19) vaccine, UNSPECIFIED 1 completed Ildefonso Dickerson [facility], [facility] 10/27/2024 16:15:24 Past Encounters Encounter ID Performer Location Encounter Start Date Encounter Closed Date Diagnosis/Indication Diagnosis SNOMED-CT Code Diagnosis ICD10 Code Diagnosis Note [id number] SHAHEEN VALLE NP [facility] [address] [place] [address] 10/26/2024 13:45:29 10/27/2024 09:59:24 Closed fracture of right tibial plateau [id number] 3641237 S82.144D s/p fall at home.Right tibial plateau fracture confirmed on x ray and CTPlaced im immobilize r, made non weight bearing.Ne eds [facility] Ortho follow upPT OT eval and tx.Goal is to return home.Aky nue sched. and prn APAP for pain as well as ultram 50 mg bid prn.Monito r pain, VS, labs, CSM for changeAdju st meds prnUpdate Ortho with concerns Dementia 81657294 F03.C3 Severe, unable to converse appropriat angela. Word salad, unable to focus on task at hand.No dx. 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 Overactive urinary bladder 883101548 N32.81 ?Continue oxybutinin 5 mg qd Gastroesop hageal reflux disease without esophagitis 650543251 K21.9 ?On prilosec 20 mg qd - continueMe ntion in ER paperwork of already scheduled GI appt. coinciding with stay in ER. Son wanted to take her to the appointmen t from the ER because she waited 9 months to get this appointmen t. Unclear what the appt. was for, but will need to reschedule as outpt. [id number] Roger Tellez MD [address] [address] 10/27/2024 09:44:18 10/28/2024 10:30:52 Closed fracture of right tibial plateau [id number] 7500747 S82.144D see HPIfractur e lateral tibial plateau and question avulsion fx to baseline of ACLRecomme nded NWB wtih immobilize r placed to f/u with orthofollo w ortho recs and update with concernsPT OT eval and treatmonit or pain control Dementia 85455715 F03.C3 appears with baseline dementiawi ll request prior PCP notesinvok e HCPcontinu e supportive caremonito r need for increased support in community vs need to transition to LTCmonitor for behaviors on seroquelps ych to eval Depressive disorder 6128 9007 F33.8 probable underlying depression maintained on zoloft and remeronpsy ch eval as above Post-yariel ectomy syndrome 12862542 M96.1 maintained ongabapent in 800 mg bid prnultram 50 mg bid prnmonitor utilizatio n and need to schedule Hypertensive disorder 38 514128 I10 norvasc 5 mg qdmonitor bp and need to titrate Overactive urinary bladder 544636652 N32.81 oxybutynin 5 mg qdmonitor for effecturol ogy eval prn Unsteady when walking 22 406227 R26.89 recurrent falls prior currently NWBtherapy as above Abdominal aortic aneurysm 336312318 I71.43 carrying dx added to PMHwill request prior notes [id number] SHAHEEN VALLE NP [facility] [address] [place] [address] 11/02/2024 11:38:13 11/04/2024 14:34:17 Closed fracture of right tibial plateau 1163187069 7895964 S82.144D s/p fall at home.Right tibial plateau fracture confirmed on x ray and CTPlaced im immobilize r, made non weight bearing.Ne eds C Ortho follow upPT OT eval and tx. to continue.G oal is to return home.Kay nue sched. and prn APAP for pain as well as ultram 50 mg bid prn.Monito r pain, VS, labs, CSM for changeAdju st meds prnUpdate Ortho with concerns Dementia 85487655 F03.C3 Severe, unable to converse appropriat angela. Word salad, unable to focus on task at hand.No dx. listed in PMH on ER paperwork, noted in text once.Orilitzy carolin x 1 only.BIMS 0/15Contin ue home meds:seroq uel 25 mg bidhydroxy zine 25 mg bidsertral ine 25 mg qdmelatoni n 10 mg q HSremeron 30 mg q hsInvoke HCPPsych eval prn Depressive disorder 3548 9007 F32.A ?On zoloft 25 mg qd, remeron 30 mg qd - continueMo nitor mood, behaviorsP sych eval prn Post-yariel ectomy syndrome 08125464 M96.1 APAP bid and prnDiclofe nac to back and knees qid prnGabapen tin 800 mg bid prnultram 50 mg bid prn Hypertensive disorder 38 416586 I10 Continue norvasc 5 mg qdMonitor VS and need to adjust med prn. Overactive urinary bladder 321528130 N32.81 ?Continue oxybutinin 5 mg qd Gastroesop hageal reflux disease without esophagitis 411973891 K21.9 ?On prilosec 20 mg qd - continueMe ntion in ER paperwork of already scheduled GI appt. coinciding with stay in ER. Son wanted to take her to the appointmen t from the ER because she waited 9 months to get this appointmen t. Unclear what the appt. was for, but will need to reschedule as outpt. [id number] Ella Larose NP [facility] [address] [place] [address] 11/07/2024 08:58:40 11/09/2024 10:45:50 Closed fracture of right tibial plateau 1763514751 5500811 S82.144D s/p fall at home with transferri ng.She followed up with ortho on 11/03/24 with new rec:right tibial plateau NWB with brace for transferso lesa to perform rom of kneeok to exercise quadfu 6 weeks on 12/14/24 @ 945 am with skin lifter bacon as she is not able to converse [...] st meds prnUpdate Ortho with concerns Dementia 33634230 F03.C3 Severe, unable to converse appropriat angela. Word salad, unable to focus on task at hand.No dx. listed in PMH on ER paperwork, noted in text once.Orien carolin x 1 only.BIMS 0/15Contin ue:seroque l 25 mg bidhydroxy zine 25 mg bidsertral ine 25 mg qdmelatoni n 10 mg q HSremeron 30 mg q hsInvoke HCPPsych eval prn Depressive disorder 6398 9007 F32.A zoloft 25 mg qdremeron 30 mg qdMonitor mood, behaviorsP sych eval prn Post-yariel ectomy syndrome 73504915 M96.1 APAP bid and prnDiclofe nac to back and knees qid prnGabapen tin 800 mg bid prnultram 50 mg bid prn Hypertensive disorder 38 006221 I10 Continue norvasc 5 mg qdMonitor VS and need to adjust med prn. Gastroesop hageal reflux disease without esophagitis 033224974 K21.9 cont prilosec 20 mg qd ?had scheduled GI appt.but missed it due ot ERreschedu le GI as outpt. Asthenia 66983511 R53.1 continue PT OT heremonito r [id number] SHAHEEN VALLE NP [facility] [address] [place] [address] 11/16/2024 13:55:26 11/18/2024 09:50:50 Closed fracture of right tibial plateau 1040414222 4952622 S82.144D s/p fall at home.Right tibial plateau [...] Ortho with concernsNe xt appt. 12/14 Dementia 44366121 F03.C3 Severe, unable to converse appropriat angela. Word salad, unable to focus on task at hand.No dx. listed in PMH on ER paperwork, noted in text once.Orien carolin x 1 only.BIMS 0/15Contin ue home meds:seroq uel 25 mg bidhydroxy zine 25 mg bidsertral ine 25 mg qdmelatoni n 10 mg q HSremeron 30 mg q hsInvoke HCPPsych eval prn Depressive disorder 0358 9177 F32.A Continue zoloft 25 mg qd, remeron 30 mg qdMonitor mood, behaviorsP sych eval prn Post-yariel ectomy syndrome 28976629 M96.1 Continue:A PAP bid and prnDiclofe nac to back and knees qid prnGabapen tin 800 mg bid prnultram 50 mg bid prn Hypertensive disorder 38 969088 I10 VSSContinu e norvasc 5 mg qdMonitor VS and need to adjust med prn. Overactive urinary bladder 230436540 N32.81 Continue oxybutinin 5 mg qdMonitor sx. Gastroesop hageal reflux disease without esophagitis 136820310 K21.9 Continue prilosec 20 mg qd.Mention in ER paperwork of already scheduled GI appt. coinciding with stay in ER. Son wanted to take her to the appointmen t from the ER because she waited 9 months to get this appointmen t. Unclear what the appt. was for, but will need to reschedule as outpt. [id number] Ella Larose, [facility] [address] [place] [address] 11/24/2024 11:42:30 11/25/2024 13:50:18 Closed fracture of right tibial plateau 1102450676 4029692 S82.144D s/p fall at home here for [...] concernsNe xt appt. 12/14 with ortho Dementia 98923859 F03.C3 Severe, unable to converse appropriat angela.Spanis h speakingWo rd salad, unable to focus on task at hand.No dx. listed in PMH on ER paperwork, noted in text once.Orien carolin x 1 only.BIMS 0 on admits invokedCon tinue:sero quel 25 mg bidhydroxy zine 25 mg bidsertral ine 25 mg qdmelatoni n 10 mg q HSremeron 30 mg q hsPsych eval prn Depressive disorder 1813 7173 F32.A stableCont inuezoloft 25 mg qdremeron 30 mg qdMonitor mood, behaviorsP sych eval prn Post-yariel ectomy syndrome 39213493 M96.1 stableCont inue:APAP bid and prnDiclofe nac to back and knees qid prnGabapen tin 800 mg bid prnultram 50 mg bid prn Hypertensive disorder 38 059992 I10 VSSContinu enorvasc 5 mg qdMonitor VS and need to adjust med prn. Overactive urinary bladder 606372111 N32.81 Continueox ybutinin 5 mg qdMonitor sx. Health Concerns Section Related Observation LastModified by Organization Detai ls LastModified Time None Recorded Concern Status LastModified by Organization Details LastModified Time None Recorded Payers Encounter Date Sequence Insurance Name Policy Number Policy Sheets Covered Member ID Sheets Member ID Guarantor Name 11/24/2024 1 [facility] - DOS ON OR AFTER 2023 - MEDICARE [place]VANTAGE [place] (MEDICARE REPLACEMENT/ADV ANTAGE - PPO) Brooklyn Villalpando Jocelyn [id number] Brooklyn Villalpando Jocelyn Notes Date Note Type Note Provider Name and Address Organization Details Recorded Time 11/24/2024 text/html Pt is seen today for an acute rounding visit. PMH: onychomycosis, aneurysm of infrarenal abdominal aorta, R jose luis OA, postlaminectomy syndrome, HTN, depression, ? impaired cognition/dementia, OAB Brooklyn is a 74 yo lady, admitted to [facility] 10/25/24 from [facility] after an ER visit due to a fall and right knee pain here for rehab. She continues to work with therapy remaining confused with poor retention.She participates with rehab, progress slow. Last follow up with Ortho on 11/03/24, still NWB, needs brace for transfers. OK for knee ROM and quad exercises. Follow up 12/14 with ortho. She remains with stable vitals here and no new concerns. 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 of note: She presented to [facility] 10/22/24 after falling at home, sustained right [...] recs. to follow up with Dr. Renae. CASTILLO high fall riskBIMS score 0/15Assumed full code, no MOLSTInvoke HCP Ella Larose NP [address] [facility] [address], [address], [place], [address], [facility] [employer] 11/25/2024 10:22:28 OBGyn Episode No OBEpisode recorded.
== END 2024-12-14 11:09 | disposition home or self-care (01) ==
PROVIDERS: PCP Physician Assistant; Visit Provider Physician Assistant
DX: S82.141D Displaced bicondylar fracture of right tibia, subsequent encounter for closed fracture with routine healing (principal)
CPT/HCPCS: 99213; G2211

== ENCOUNTER → 2024-12-14 09:50 | Outpatient (BNV) | payer OTHER, SELFPAY | PROVIDERS: Visit Provider Radiology Diagnostic Radiology | DX: M25.561 Pain in right knee (principal) | CPT/HCPCS: 73560 ==

== ENCOUNTER 2024-12-14 10:06 | Outpatient (REF) | payer MEDICARE, SELFPAY ==
--- NOTE | ~2024-12-14 | XR_ITS ---
EXAMINATION: XR KNEE 1-2 VIEWS RIGHT HISTORY: M25.569 - Pain in unspecified knee COMPARISON: Comparison is made with the prior examination dated 10/22/2024. FINDINGS: AP and lateral views of the right knee are submitted. Osseous mineralization is normal. Is again seen is a nondisplaced fracture of the lateral tibial plateau. The fracture line involving the tibial spine remains visible. A linear lucency in the region of the fibular neck on the lateral view may represent an additional nondisplaced fracture. The joint spaces are preserved. There is a small joint effusion. There is chondrocalcinosis. XR/XR knee RT 2V IMPRESSION: Fracture of the lateral tibial plateau without significant change. Possible nondisplaced fracture of the fibular head seen on the lateral view of the current examination. Clinical correlation is recommended. Electronically signed by: Valentin Wilhelm MD 12/14/2024 01:50 PM [facility]
--- OUTSIDE RECORDS SUMMARY | 2024-12-16 11:17 | XMS_ITS | Data Portability ---
Author Organization [facility], Main Office Address [address] [place] [address] Care Team Providers Care Rim Technician Name Role Phone MAT CASAREZ - 2ND FLOOR OTHER Assessment No assessment [...] Time Closed fracture of right tibial plateau 8225034052266 9105 Active 2024 SHAHEEN VALLE NP [address], [address], [place], [address], [facility] 5 14:01:06 Dementia 11781043 Active 2024 SHAHEEN VALLE NP [address], [address], [place], [address], [facility] 5 14:19:29 Onychomycos is 830439545 Active 2024 SHAHEEN VALLE NP [address] [facility], [address], [place], [address], [facility] 5 14:19:41 Abdominal aortic aneurysm 510121935 Active 2024 SHAHEEN VALLE NP [address], [address], [place], [address], [facility] 5 14:20:06 Osteoarthri tis 973824545 Active 2024 R knee SHAHEEN VALLE NP [address], [address], [place], [address], [facility] 5 14:20:19 Post-jolynn ctomy syndrome 53155033 Active 2024 SHAHEEN VALLE NP [address], [address], [place], [address], [facility] 5 14:20:30 Hypertensiv e disorder 60241495 Active 2024 SHAHEEN VALLE NP [address], [address], [place], [address], [facility] 5 14:20:36 Depressive disorder 60361452 Active 2024 SHAHEEN VALLE NP [address], [address], [place], [address], [facility] 5 14:20:44 Overactive urinary bladder 665262808 Active 2024 SHAHEEN VALLE NP [address], [address], [place], [address], [facility] 5 14:20:55 Gastroesoph ageal reflux disease without esophagitis 068614863 Active 2024 SHAHEEN VALLE NP [address], [address], [place], [address], [facility] 5 14:29:31 Problem Notes None recorded. Medical Equipment None Reported. Allergies Allergen ID Allergen Name Allergen Category Reaction Reaction Severity Criticality Documentation Date Start Date Code Code System Note Provider Name and Address Organization Details Recorded Time 31070 yellow dye medicatio n Not available Not available Not available 10/26/2024 25076 UNK #5, throa t close s Not Available Not Available Not Available 98615 ibuprofen medicatio n Not available Not available Not available 10/26/2024 5640 RxNorm throa t swell ing Not Available Not Available Not Available 33191 orange (food color) medicatio n Not available Not available Not available 10/26/2024 50094 UNK #8, throa t close s Not Available Not Available Not Available Medications Not known to be on any medication Vitals Date Recorded Body temperature Oxygen saturation Oxygen saturation in Arterial blood by Pulse oximetry Systolic blood pressure Diastolic blood pressure Provider Name and Address Organization Details Last Updated DateTime 5 97.8 [degF] 95 % 95 % 130 mm[Hg] 70 mm[Hg] Ella Larose NP [address], [address], [place], [address], [facility] 5 10:40:51 Date Recorded Heart rate Respiratory rate Body temperature Oxygen saturation Oxygen saturation in Arterial blood by Pulse oximetry Systolic blood pressure Diastolic blood pressure Provider Name and Address Organization Details Last Updated DateTime 5 80 /min 17 /min 97.6 [degF] 97 % 97 % 128 mm[Hg] 72 mm[Hg] SHAHEEN VALLE NP [address], [address], [place], [address], [facility] 5 13:58:50 Date Recorded Body weight Heart rate Respiratory rate Body temperature Oxygen saturation Oxygen saturation in Arterial blood by Pulse oximetry Systolic blood pressure Diastolic blood pressure Provider Name and Address Organization Details Last Updated DateTime 5 72581.1 6 g 75 /min 18 /min 97.7 [degF] 96 % 96 % 105 mm[Hg] 71 mm[Hg] Ella Larose NP [address], [place], [address], [facility] 5 11:43:01 Date Recorded Body weight Heart rate Respiratory rate Body temperature Oxygen saturation Oxygen saturation in Arterial blood by Pulse oximetry Systolic blood pressure Diastolic blood pressure Provider Name and Address Organization Details Last Updated DateTime 5 60651.6 4 g 78 /min 18 /min 97.9 [degF] 97 % 97 % 117 mm[Hg] 68 mm[Hg] Ella Larose NP [address], [address], [place], [address], [facility] 5 14:06:56 Date Recorded Body weight Heart rate Respiratory rate Body temperature Oxygen saturation Oxygen saturation in Arterial blood by Pulse oximetry Systolic blood pressure Diastolic blood pressure Provider Name and Address Organization Details Last Updated DateTime 5 46785.1 6 g 72 /min 18 /min 97.6 [degF] 96 % 96 % 129 mm[Hg] 67 mm[Hg] Ella Larose NP [address] [facility], [address], [place], [address], [facility] 12:23:57 Social History Question Answer Notes LastModified by Organizat ion Details LastModified Time Tobacco Smoking Status Former Smoker pt. unable to provide details SHAHEEN VALLE NP [address], [address], [place], [address], [facility] 10/26/2024 13:41:46 What Is Your Level Of Alcohol Consumption? None Unknown Information not available 10/26/2024 What Is Your Code Status? Full Code Information not available 10/26/2024 Do You Have A Medical Power Of Waterproofing Machine Operator? Yes HAs HCP - Invoke [email or web address] Information not available 10/26/2024 What Was The Date Of Your Most Recent Tobacco Screening? 10/26/2024 [email or web address] Information not available 10/26/2024 Do You Have An Out Of Hospital DNR? No [email or web address] Information not available 10/26/2024 Do You Use Any Illicit Or Recreational Drugs? No [email or web address] Information not available 10/26/2024 Has Tobacco Cessation Counseling Been Provided? No [email or web address] Information not available 10/26/2024 Do You Or Have You Ever Used Any Other Forms Of Tobacco Or Nicotine? No [email or web address] Information not available 10/26/2024 Sex: Unknown Functional Status None recorded. Mental Status None recorded. Family History Nothing Reported Notes:N/C Medical History No medical history recorded. Gynecological HistoryNo gynecological history recorded. Obstetrics History GPAL:G 0 P 0 0 0 0 Immunizations Vaccine Type Date Status Note Provider Nam e and Address Organization Details Recorded Time Tdap 0 completed Ildefonso Dickerson null, [facility] 10/27/2024 16:14:18 Td(adult) unspecified formulation 0 completed Ildefonso Dickerson null, [facility] 10/27/2024 16:14:30 pneumococcal polysaccharide PPV23 0 completed Ildefonso Dickerson null, [facility] 10/27/2024 16:14:43 influenza, unspecified formulation 0 completed Ildefonso Dickerson null, [facility] 10/27/2024 16:14:54 SARS-COV-2 (COVID-19) vaccine, UNSPECIFIED 1 completed Ildefonso Jayla null, [facility] 10/27/2024 16:15:18 SARS-COV-2 (COVID-19) vaccine, UNSPECIFIED 1 completed Ildefonso Jayla null, [facility] 10/27/2024 16:15:24 Past Encounters Encounter ID Performer Location Encounter Start Date Encounter Closed Date Diagnosis/Indication Diagnosis SNOMED-CT Code Diagnosis ICD10 Code Diagnosis Note [id number] SHAHEEN VALLE NP [facility] [address] [place] [address] 10/26/2024 13:45:29 10/27/2024 09:59:24 Closed fracture of right tibial plateau 9794800135 8096348 S82.144D s/p fall at home.Right tibial plateau fracture confirmed on x ray and CTPlaced im immobilize r, made non weight bearing.Ne eds [facility] Ortho follow upPT OT eval and tx.Goal is to return home.Kay nue sched. and prn APAP for pain as well as ultram 50 mg bid prn.Monito r pain, VS, labs, CSM for changeAdju st meds prnUpdate Ortho with concerns Dementia 70693306 F03.C3 Severe, unable to converse appropriat angela. Word salad, unable to focus on task at hand.No dx. listed in PMH on ER paperwork, noted in text once.Orien carolin x 1 only.BIMS 0/15Contin ue home meds:seroq uel 25 mg bidhydroxy zine 25 mg bidsertral ine 25 mg qdmelatoni n 10 mg q HSremeron 30 mg q hsInvoke HCPPsych eval prn Depressive disorder 9469 9007 F32.A ?On zoloft 25 mg qd, remeron 30 mg qd - continueMo nitor mood, behaviorsP sych eval prn Post-yariel ectomy syndrome 86293890 M96.1 APAP bid and prnDiclofe nac to back and knees qid prnGabapen tin 800 mg bid prnultram 50 mg bid prn Hypertensive disorder 38 408934 I10 Continue norvasc 5 mg qdMonitor VS and need to adjust med prn. Overactive urinary bladder 921667778 N32.81 ?Continue oxybutinin 5 mg qd Gastroesop hageal reflux disease without esophagitis 464912570 K21.9 ?On prilosec 20 mg qd - continueMe ntion in ER paperwork of already scheduled GI appt. coinciding with stay in ER. Son wanted to take her to the appointmen t from the ER because she waited 9 months to get this appointmen t. Unclear what the appt. was for, but will need to reschedule as outpt. [id number] Roger Tellez MD [facility] [address] 10/27/2024 09:44:18 10/28/2024 10:30:52 Closed fracture of right tibial plateau 7421003899 4046519 S82.144D see HPIfractur e lateral tibial plateau and question avulsion fx to baseline of ACLRecomme nded NWB wtih immobilize r placed to f/u with orthofollo w ortho recs and update with concernsPT OT eval and treatmonit or pain control Dementia 62766216 F03.C3 appears with baseline dementiawi ll request prior PCP notesinvok e HCPcontinu e supportive caremonito r need for increased support in community vs need to transition to LTCmonitor for behaviors on seroquelps ych to eval Depressive disorder 3548 9007 F33.8 probable underlying depression maintained on zoloft and remeronpsy ch eval as above Post-yariel ectomy syndrome 48050777 M96.1 maintained ongabapent in 800 mg bid prnultram 50 mg bid prnmonitor utilizatio n and need to schedule Hypertensive disorder 38 274165 I10 norvasc 5 mg qdmonitor bp and need to titrate Overactive urinary bladder 440858162 N32.81 oxybutynin 5 mg qdmonitor for effecturol ogy eval prn Unsteady when walking 22 344569 R26.89 recurrent falls prior currently NWBtherapy as above Abdominal aortic aneurysm 005486327 I71.43 carrying dx added to PMHwill request prior notes [id number] SHAHEEN VALLE NP [facility] [address] [place] [address] 11/02/2024 11:38:13 11/04/2024 14:34:17 Closed fracture of right tibial plateau 0380704946 1689709 S82.144D s/p fall at home.Right tibial plateau [...] st meds prnUpdate Ortho with concerns Dementia 55455078 F03.C3 Severe, unable to converse appropriat angela. Word salad, unable to focus on task at hand.No dx. listed in PMH on ER paperwork, noted in text once.Orien carolin x 1 only.BIMS 015Contin ue home meds:seroq uel 25 mg bidhydroxy zine 25 mg bidsertral ine 25 mg qdmelatoni n 10 mg q HSremeron 30 mg q hsInvoke HCPPsych eval prn Depressive disorder 3548 9007 F32.A ?On zoloft 25 mg qd, remeron 30 mg qd - continueMo nitor mood, behaviorsP sych eval prn Post-yariel ectomy syndrome 29787737 M96.1 APAP bid and prnDiclofe nac to back and knees qid prnGabapen tin 800 mg bid prnultram 50 mg bid prn Hypertensive disorder 38 635527 I10 Continue norvasc 5 mg qdMonitor VS and need to adjust med prn. Overactive urinary bladder 921922638 N32.81 ?Continue oxybutinin 5 mg qd Gastroesop hageal reflux disease without esophagitis 447481357 K21.9 ?On prilosec 20 mg qd - continueMe ntion in ER paperwork of already scheduled GI appt. coinciding with stay in ER. Son wanted to take her to the appointmen t from the ER because she waited 9 months to get this appointmen t. Unclear what the appt. was for, but will need to reschedule as outpt. [id number] Ella Larose, KELLEY [facility] [address] [place] [address] 11/07/2024 08:58:40 11/09/2024 10:45:50 Closed fracture of right tibial plateau 1292701985 1840740 S82.144D s/p fall at home with transferri ng.She followed up with ortho on 11/03/24 with new rec:right tibial plateau NWB with brace for transferso lesa to perform rom of kneeok to exercise quadfu 6 weeks on 12/14/24 @ 945 am with smokehouse worker as she is not able to converse [...] st meds prnUpdate Ortho with concerns Dementia 27449759 F03.C3 Severe, unable to converse appropriat angela. Word salad, unable to focus on task at hand.No dx. listed in PMH on ER paperwork, noted in text once.Orilitzy carolin x 1 only.BIMS 0/15Contin ue:seroque l 25 mg bidhydroxy zine 25 mg bidsertral ine 25 mg qdmelatoni n 10 mg q HSremeron 30 mg q hsInvoke HCPPsych eval prn Depressive disorder 7338 9007 F32.A zoloft 25 mg qdremeron 30 mg qdMonitor mood, behaviorsP sych eval prn Post-yariel ectomy syndrome 68450059 M96.1 APAP bid and prnDiclofe nac to back and knees qid prnGabapen tin 800 mg bid prnultram 50 mg bid prn Hypertensive disorder 38 935399 I10 Continue norvasc 5 mg qdMonitor VS and need to adjust med prn. Gastroesop hageal reflux disease without esophagitis 109969447 K21.9 cont prilosec 20 mg qd ?had scheduled GI appt.but missed it due ot ERreschedu le GI as outpt. Asthenia 06239064 R53.1 continue PT OT heremonito r [id number] SHAHEEN VALLE, KEL[place] [address] [place] [address] 11/16/2024 13:55:26 11/18/2024 09:50:50 Closed fracture of right tibial plateau 9119293687 1459308 S82.144D s/p fall at home.Right tibial plateau [...] Ortho with concernsNe xt appt. 12/14 Dementia 55006677 F03.C3 Severe, unable to converse appropriat angela. [...] behaviorsP sych eval prn Post-yariel ectomy syndrome 95876314 M96.1 Continue:A PAP bid and prnDiclofe nac to back and knees qid prnGabapen tin 800 mg bid prnultram 50 mg bid prn Hypertensive disorder 38 964943 I10 VSSContinu e norvasc 5 mg qdMonitor VS and need to adjust med prn. Overactive urinary bladder 579438964 N32.81 Continue oxybutinin 5 mg qdMonitor sx. Gastroesop hageal reflux disease without esophagitis 307829569 K21.9 Continue prilosec 20 mg qd.Mention in ER paperwork of already scheduled GI appt. coinciding with stay in ER. Son wanted to take her to the appointmen t from the ER because she waited 9 months to get this appointmen t. Unclear what the appt. was for, but will need to reschedule as outpt. [id number] Ella Larose NP [address] [place] [address] 11/24/2024 11:42:30 11/25/2024 13:50:18 Closed fracture of right tibial plateau 2051817459 4929317 S82.144D s/p fall at home here for [...] concernsNe xt appt. 12/14 with ortho Dementia 22317170 F03.C3 Severe, unable to converse appropriat angela.Spanis h speakingWo rd salad, unable to focus on task at hand.No dx. listed in PMH on ER paperwork, noted in text once.Orilitzy carolin x 1 only.BIMS 015 on admits invokedCon tinue:sero quel 25 mg bidhydroxy zine 25 mg bidsertral ine 25 mg qdmelatoni n 10 mg q HSremeron 30 mg q hsPsych eval prn Depressive disorder 5749 9007 F32.A stableCont inuezoloft 25 mg qdremeron 30 mg qdMonitor mood, behaviorsP sych eval prn Post-yariel ectomy syndrome 61309607 M96.1 stableCont inue:APAP bid and prnDiclofe nac to back and knees qid prnGabapen tin 800 mg bid prnultram 50 mg bid prn Hypertensive disorder 38 293202 I10 VSSContinu enorvasc 5 mg qdMonitor VS and need to adjust med prn. Overactive urinary bladder 611256904 N32.81 Continueox ybutinin 5 mg qdMonitor sx. [id number] Ella Larose NP [address] [place] [address] 12/02/2024 08:19:51 12/05/2024 10:21:42 Dementia 09143237 F03.C3 Severe, unable to converse appropriat angela.Spanis h speakingco ntinues with nonsesical Word salad, unable to focus on task at hand.No dx. listed in PMH on ER paperwork, noted in text once.Orien carolin x 1 only.BIMS on admits invokedCon tinue:sero quel 25 mg bidhydroxy zine 25 mg bidsertral ine 25 mg qdmelatoni n 10 mg q HSremeron 30 mg q hsPsych eval prn Closed fra cture of right tibial plateau 7080635630 5600899 S82.144D s/p fall at home here for rehab and therapyRig ht tibial plateau fracture confirmed on x ray and CTPlaced im immobilize r, made non weight bearing. [facility] Ortho follow up on 11/03, remainsNWB .OK to transfer with brace, OK for knee ROM and quad exercises. PT OT eval and tx. to continue with therapyGoa l is to return home.Kay nuesched. and prn APAP for painultram 50 mg bid prn.Monito r pain, VS, labs, CSM for changeAdju st meds prnUpdate Ortho with concernsNe xt appt. 12/14 with ortho Depressive disorder 5465 4393 F32.A stableCont inuezoloft 25 mg qdremeron 30 mg qdMonitor mood, behaviorsP sych eval prn Post-yariel ectomy syndrome 15278605 M96.1 stableCont inue:APAP bid and prnDiclofe nac to back and knees qid prnGabapen tin 800 mg bid prnultram 50 mg bid prn Hypertensive disorder 38 601256 I10 VSSContinu enorvasc 5 mg qdMonitor VS and need to adjust med prn. Overactive urinary bladder 299178094 N32.81 Continueox ybutinin 5 mg qdMonitor sx. [id number] Ella Larose NP [address] [address] 12/14/2024 12:23:17 12/15/2024 12:52:53 Closed fracture of right tibial plateau 7819095705 8850486 S82.144D s/p fall at home here for rehab and therapyRig ht tibial plateau fracture confirmed on x ray and CT Ortho on 12/14/24 today. Recommenda tion is WBAT with walker, rom, gait training and fu with healthcare administrative assistant in 6 weeks with smokehouse worker. Goal is to return home on thursdayCont inuesched. and prn APAP for painultram 50 mg prn.Adjust meds prnUpdate Ortho with concernsNe xt appt. in 6 weeks with caregiver for fu Dementia 33829451 F03.C3 Severe, unable to converse appropriat angela.Spanis h speakingOr iented x 1 only. nonsensica lBIMS 0/15 on admits invokedCon tinue:sero quel 25 mg bidhydroxy zine 25 mg bidsertral ine 25 mg qdmelatoni n 10 mg q HSremeron 30 mg q hsPsych eval prn Health Concerns Section Related Observation LastModified by Organization Detai ls LastModified Time None Recorded Concern Status LastModified by Organization Details LastModified Time None Recorded Advance Directives Directive None Recorded Payers Encounter Date Sequence Insurance Name Policy Number Policy Sheets Covered Member ID Sheets Member ID Guarantor Name 11/07/2024 1 [facility] - DOS ON OR AFTER 2023 - MEDIC[place]AGE [place]/AD VANTAGE - PPO) Brooklyn Banks [id number] Brooklyn Banks 11/16/2024 1 [facility] - DOS ON OR AFTER 2023 - [place]/AD VANTAGE - PPO) Brooklyn Banks [id number] Brooklyn Banks 11/24/2024 1 [facility] - DOS ON OR AFTER 2023 - [place]/AD VANTAGE - PPO) Brooklyn Banks [id number] Brooklyn Banks 12/02/2024 1 [place] [facility] Brooklyn Vivar ur [id number] Brooklyn Banks 12/02/2024 2 [place] [facility] Brooklyn Banks [id number] Brooklyn Banks 12/14/2024 1 [place] [facility] Brooklyn Vivar ur [id number] Brooklyn Banks 12/14/2024 2 [place] [facility] Brooklyn Banks [id number] Brooklyn Banks Notes Date Note Type Note Provider Name and Address Organization Details Recorded Time 11/07/2024 text/html Brooklyn is a 74 yo lady, admitted to [facility] 10/25/24 from [facility] after an ER visit due to a fall and right knee pain seen for an acute rounding visit today. PMH: onychomycosis, aneurysm of infrarenal abdominal aorta, R jose luis OA, postlaminectomy syndrome, HTN, depression, ? impaired cognition/dementia, OAB Brooklyn presented to [facility] 10/22/24 after falling at home the night before, trying to transfer to the toilet. She sustained right knee pain and swelling prompting transfer to ER and felt she could benefit from rehab and transferred here on 10/25/24. Work up consisted of stable labs. R knee xray showing suprapatellar effusion, chondrocalcinosis, [...] recs. to follow up with Dr. Renae. She followed up with ortho on 11/03/24 with new rec:right tibial plateau NWB with brace for transfersokay to perform rom of kneeok to exercise quadfu 6 weeks on 12/14/24 @ 945 am with smokehouse worker as she is not able to converse with notable confusion. She continues to received supportive care and therapy here working on NWB transfers, exercise, ROM, and strengthening. On exam, she is confused and nonsensical today with boom crane operator. No concerns from nursing. Able to move both lower ext without difficulty in wheelchair today. No obvious swelling or bruising noted. Vitals stable. CASTILLO high fall riskBIMS score 0/15Assumed full code, no MOLSTInvoked HCP Ella Larose, KELLEY [address], [address], [place], [address], [facility] 11/07/2024 10:58:07 11/16/2024 text/html Brooklyn is seen today for a routine, 30 day visit. She is a 74 yo lady, admitted to [facility] 10/25/24 from [facility] after an ER visit due to a fall and right knee pain. She presented to [facility] 10/22/24 after falling at home, sustained right [...] to follow up with Dr. Renae. Since she had been here, she has remained very confused.She continues to work with rehab, progress slow.She had follow up with Ortho on 11/03/24, still NWB, needs brace for transfers. OK for knee ROM and quad exercises. Follow up 12/14. [facility] 10/27 stable Case discussed with staff, there is a question of her falling as son noted a bump on her head. Examination of head today reveals no redness, bruising, or swelling. Upon exam, Brooklyn is up in her w/c, alert, animated, conversant, word salad. NAD. CASTILLO high fall riskBIMS score 0/15 PMH: onychomycosis, aneurysm of infrarenal abdominal aorta, R jose luis OA, postlaminectomy syndrome, HTN, depression, ? impaired cognition/dementia, OABAssumed full code, no MOLSTInvoke HCP SHAHEEN VALLE, MANAGER CABLE [address], [address], [place], [address], [facility] 11/16/2024 14:14:00 11/24/2024 text/html Pt is seen today for an acute rounding visit. PMH: onychomycosis, aneurysm of infrarenal abdominal aorta, R jose luis OA, postlaminectomy syndrome, HTN, depression, ? impaired cognition/dementia, OAB Brooklyn is a 74 yo lady, admitted to [facility] 10/25/24 from [facility] after an ER [...] eating her lunch and smiling speaking in Liberian but confused even with boom crane operator. of note: She presented to [facility] 10/22/24 after falling at home, sustained right [...] no MOLSTInvoke HCP Ella Larose, KELLEY [address], [address], [place], [address], [facility] 11/25/2024 10:22:28 12/02/2024 text/html Pt is seen today for an acute rounding visit. PMH: onychomycosis, aneurysm of infrarenal abdominal aorta, R jose luis OA, postlaminectomy syndrome, HTN, depression, ? impaired cognition/dementia, OAB Pt is a 74 yo lady, admitted to [facility] 10/25/24 from [facility] after an ER visit due to a fall and right knee pain here for rehab. 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 On exam, she is sitting in dining room in NAD confused and nonsensical at baseline and smiling speaking in Liberian. Overall weight stable at 110lbs over last few months. of note: She presented to [facility] 10/22/24 after falling at home, sustained right [...] no MOLSTInvoke HCP Ella Larose, KELLEY [address], [address], [place], [address], [employer] 12/02/2024 14:15:30 12/14/2024 text/html [place] is seen today for an acute rounding visit. PMH: onychomycosis, aneurysm of infrarenal abdominal aorta, R jose luis OA, postlaminectomy syndrome, HTN, depression, ? impaired cognition/dementia, OAB Brooklyn is a 74 yo lady, admitted to [facility] 10/25/24 from [facility] after an ER visit due to a fall and right knee pain here for rehab. Follow up with Ortho on 12/14/24 today. Recommendation is WBAT with walker, rom, gait training and fu with healthcare administrative assistant in 6 weeks with smokehouse worker. She is no longer on therapy and new rec above agreed. She is planned for dc to home on Thursday per staff. On exam, Brooklyn just returned from her ortho appt in [facility]. She is eating lunch. She is nonsensical at baseline. of note: She presented to [facility] 10/22/24 after falling at home, sustained right knee pain and swelling prompting transfer to ER. Baseline ambulation with cane and walker. CASTILLO high fall riskBIMS score 0/15Assumed full code, no MOLSTInvoke HCP Ella Larose NP [address], [address], [place], [address], [facility] - [employer] 12/14/2024 12:38:16 OBGyn Episode No OBEpisode recorded.
--- OUTSIDE RECORDS SUMMARY | 2024-12-16 11:17 | XMS_ITS | Continuity of Care Document ---
Author Organization [facility], [facility] Address [address] [place] [address] Care Team Providers Care Photograph Developer Name Role Phone [facility] OTHER [...] Time Closed fracture of right tibial plateau [id number] 9105 Active 2024 SHAHEEN VALLE NP [address] , [address], [place], [address], [facility] [employer] [facility] 5 14:01:06 Dementia 52000686 Active 2024 SHAHEEN VALLE NP [address] , [address], [place], [address], [facility] [employer] [facility] 5 14:19:29 Onychomycos is 336097512 Active 2024 SHAHEEN VALLE NP [address] , [address], [place], [address], [facility] [employer] 5 14:19:41 Abdominal aortic aneurysm 383333503 Active 2024 SHAHEEN VALLE NP [address], [place], [address], [facility] [employer] [facility] 5 14:20:06 Osteoarthri tis 532497646 Active 2024 R knee SHAHEEN VALLE NP [address] [facility], [address], [place], [address], [facility] [employer] [facility] 5 14:20:19 Post-jolynn ctomy syndrome 26311495 Active 2024 SHAHEEN VALLE NP [address] [facility], [address], [place], [place], [address], [facility] [employer] [facility] 5 14:20:30 Hypertensiv e disorder 97385939 Active 2024 SHAHEEN VALLE NP [address] [facility], [address], [place], [place], [address], [facility] [employer] [facility] 5 14:20:36 Depressive disorder 98020044 Active 2024 SHAHEEN VALLE NP [address] [facility], [address], [place], [address], [facility] [employer] [facility] 5 14:20:44 Overactive urinary bladder 054674322 Active 2024 SHAHEEN VALLE NP [address] [facility], [address], [place], [address], [facility] [employer] [facility] 5 14:20:55 Gastroesoph ageal reflux disease without esophagitis 211470262 Active 2024 SHAHEEN VALLE NP [address] [facility], [address], [place], [address], [facility] [employer] [facility] 5 14:29:31 Problem Notes None recorded. Medical Equipment None Reported. Allergies Allergen ID Allergen Name Allergen Category Reaction Reaction Severity Criticality Documentation Date Start Date Code Code System Note Provider Name and Address Organization Details Recorded Time 17579 yellow dye medicatio n Not available Not available Not available 10/26/2024 77842 UNK #5, throa t close s Not Available Not Available Not Available 83485 ibuprofen medicatio n Not available Not available Not available 10/26/2024 5640 RxNorm throa t swell ing Not Available Not Available Not Available 20554 orange (food color) medicatio n Not available Not available Not available 10/26/2024 36915 UNK #8, throa t close s Not Available Not Available Not Available Medications Not known to be on any medication Vitals Date Recorded Body weight Heart rate Respiratory rate Body temperature Oxygen saturation Oxygen saturation in Arterial blood by Pulse oximetry Systolic blood pressure Diastolic blood pressure Provider Name and Address Organization Details Last Updated DateTime 5 38248.1 6 g 72 /min 18 /min 97.6 [degF] 96 % 96 % 129 mm[Hg] 67 mm[Hg] Ella Larose NP [address] [facility], [address], [place], [address], [facility] [employer] 5 12:23:57 Social History Question Answer Notes LastModified by Organizat ion Details LastModified Time Tobacco Smoking Status Former Smoker pt. unable to provide details SHAHEEN VALLE NP [address] [facility], [address], [place], [address], [facility] [employer] 10/26/2024 13:41:46 What Is Your Level Of Alcohol Consumption? None Unknown [email or web address] Information not available 10/26/2024 What Is Your Code Status? Full Code [email or web address] Information not available 10/26/2024 Do You Have A Medical Power Of Rod Straightener? Yes HAs HCP - Invoke Information not available 10/26/2024 What Was The Date Of Your Most Recent Tobacco Screening? 10/26/2024 [email or web address] Information not available 10/26/2024 Do You Have An Out Of Hospital DNR? No Information not available 10/26/2024 Do You Use Any Illicit Or Recreational Drugs? No [email or web address] Information not available 10/26/2024 Has Tobacco Cessation Counseling Been Provided? No Information not available 10/26/2024 Do You Or Have You Ever Used Any Other Forms Of Tobacco Or Nicotine? No [email or web address] Information not available 10/26/2024 Sex: Unknown Functional Status None recorded. Mental Status None recorded. Family History Nothing Reported Notes:N/C Medical History No medical history recorded. Gynecological HistoryNo gynecological history recorded. Obstetrics History GPAL:G 0 P 0 0 0 0 Immunizations Vaccine Type Date Status Note Provider Nam e and Address Organization Details Recorded Time Tdap 0 completed Ildefonso bell, [facility] [employer] [facility] 10/27/2024 16:14:18 Td(adult) unspecified formulation 0 completed Ildefonso bell [facility] 10/27/2024 16:14:30 pneumococcal polysaccharide PPV23 0 completed Ildefonso Dickerson [facility], [facility] 10/27/2024 16:14:43 influenza, unspecified formulation 0 completed Ildefonso Dickerson null, [facility] 10/27/2024 16:14:54 SARS-COV-2 (COVID-19) vaccine, UNSPECIFIED 1 completed Ildefonso Dickerson [facility], [facility] 10/27/2024 16:15:18 SARS-COV-2 (COVID-19) vaccine, UNSPECIFIED 1 completed Ildefonso Dickerson [facility], [facility] 10/27/2024 16:15:24 Past Encounters Encounter ID Performer Location Encounter Start Date Encounter Closed Date Diagnosis/Indication Diagnosis SNOMED-CT Code Diagnosis ICD10 Code Diagnosis Note [id number] SHAHEEN VALLE NP [facility] [address] [place] [address] 11/16/2024 13:55:26 11/18/2024 09:50:50 Closed fracture of right tibial plateau [id number] 5511012 S82.144D s/p fall at home.Right tibial plateau [...] Ortho with concernsNe xt appt. 12/14 Dementia 20188739 F03.C3 Severe, unable to converse appropriat angela. Word salad, unable to focus on task at hand.No dx. listed in PMH on ER paperwork, noted in text once.Orien carolin x 1 only.BIMS 0Contin ue home meds:seroq uel 25 mg bidhydroxy zine 25 mg bidsertral ine 25 mg qdmelatoni n 10 mg q HSremeron 30 mg q hsInvoke HCPPsych eval prn Depressive disorder 3548 9007 F32.A Continue zoloft 25 mg qd, remeron 30 mg qdMonitor mood, behaviorsP sych eval prn Post-yariel ectomy syndrome 26852628 M96.1 Continue:A PAP bid and prnDiclofe nac to back and knees qid prnGabapen tin 800 mg bid prnultram 50 mg bid prn Hypertensive disorder 38 655696 I10 VSSContinu e norvasc 5 mg qdMonitor VS and need to adjust med prn. Overactive urinary bladder 255160926 N32.81 Continue oxybutinin 5 mg qdMonitor sx. Gastroesop hageal reflux disease without esophagitis 198854698 K21.9 Continue prilosec 20 mg qd.Mention in ER paperwork of already scheduled GI appt. coinciding with stay in ER. Son wanted to take her to the appointmen t from the ER because she waited 9 months to get this appointmen t. Unclear what the appt. was for, but will need to reschedule as outpt. [id number] Ella Larose, KELLEY [facility] [address] [place] [address] 11/24/2024 11:42:30 11/25/2024 13:50:18 Closed fracture of right tibial plateau 5780990475 6018860 S82.144D s/p fall at home here for [...] concernsNe xt appt. 12/14 with ortho Dementia 71941135 F03.C3 Severe, unable to converse appropriat angela.Spanis [...] behaviorsP sych eval prn Post-yariel ectomy syndrome 53437554 M96.1 stableCont inue:APAP bid and prnDiclofe nac to back and knees qid prnGabapen tin 800 mg bid prnultram 50 mg bid prn Hypertensive disorder 38 771669 I10 VSSContinu enorvasc 5 mg qdMonitor VS and need to adjust med prn. Overactive urinary bladder 548271032 N32.81 Continueox ybutinin 5 mg qdMonitor sx. [id number] Ella Larose NP [address] [address] 12/02/2024 08:19:51 12/05/2024 10:21:42 Dementia 48953436 F03.C3 Severe, unable to converse appropriat angela.Spanis h speakingco ntinues with nonsesical Word salad, unable to focus on task at hand.No dx. listed in PMH on ER paperwork, noted in text once.Gaurav carolin x 1 only.BIMS 0/15 on admits invokedCon tinue:sero quel 25 mg bidhydroxy zine 25 mg bidsertral ine 25 mg qdmelatoni n 10 mg q HSremeron 30 mg q hsPsych eval prn Closed fra cture of right tibial plateau 0707146337 3730992 S82.144D s/p fall at home here for rehab and therapyRig ht tibial plateau fracture confirmed on x ray and CTPlaced im immobilize r, made non weight bearing. [facility] Ortho follow up [...] xt appt. 12/14 with ortho Depressive disorder 3548 9007 F32.A stableCont inuezoloft 25 mg qdremeron 30 mg qdMonitor mood, behaviorsP sych eval prn Post-yariel ectomy syndrome 21207788 M96.1 stableCont inue:APAP bid and prnDiclofe nac to back and knees qid prnGabapen tin 800 mg bid prnultram 50 mg bid prn Hypertensive disorder 38 564983 I10 VSSContinu enorvasc 5 mg qdMonitor VS and need to adjust med prn. Overactive urinary bladder 497610582 N32.81 Continueox ybutinin 5 mg qdMonitor sx. [id number] [facility] [address] 12/14/2024 12:23:17 12/15/2024 12:52:53 Closed fracture of right tibial plateau 3534906488 1298222 S82.144D s/p fall at home here for rehab and therapyRig ht tibial plateau fracture confirmed on x ray and CT Ortho on 12/14/24 today. Recommenda tion is WBAT with walker, rom, gait training and fu with overnight caregiver in 6 weeks with crisis specialist. Goal is to return home on t inuesched. and prn APAP for painultram 50 mg prn.Adjust meds prnUpdate Ortho with concernsNe xt appt. in 6 weeks with caregiver for fu Dementia [id number] F03.C3 Severe, unable to converse appropriat angela.Spanis [...] Member ID Sheets Member ID Guarantor Name 12/14/2024 1 [place]ICARE [place]: [facility] [place] Vivar ur [id number] [place] Banks 12/14/2024 2 [place] [facility] [place] Banks [id number] Brooklyn Banks Notes Date Note Type Note Provider Name and Address Organization Details Recorded Time 12/14/2024 text/html Brooklyn is seen today for an acute rounding visit. PMH: onychomycosis, aneurysm of infrarenal abdominal aorta, R jose luis OA, postlaminectomy syndrome, HTN, depression, ? impaired cognition/dementia, OAB Brooklyn is a 74 yo lady, admitted to [facility] 10/25/24 from [facility] after an ER visit due to a fall and right knee pain here for rehab. Follow up with Ortho on 12/14/24 today. Recommendation is WBAT with walker, rom, gait training and fu with overnight caregiver in 6 weeks with crisis specialist. She is no longer on therapy and new rec above agreed. She is planned for dc to home on Thursday per staff. On exam, Brooklyn just returned from her ortho appt in [facility]. She is eating lunch. She is nonsensical at baseline. of note: She presented to [facility] 10/22/24 after falling at home, sustained right knee pain and swelling prompting transfer to ER. Baseline ambulation with cane and walker. CASTILLO high fall riskBIMS score 0/15Assumed full code, no MOLSTInvoke HCP Ella Larose NP [address] [facility], [address], [place], [address], [facility] 12/14/2024 12:38:16 OBGyn Episode No OBEpisode recorded.
--- OUTSIDE RECORDS SUMMARY | 2024-12-16 11:17 | XMS_ITS | Continuity of Care Document ---
Author Organization [facility], [facility] Address [address] [place] [address] Care Team Providers Care Program Analyst Name Role Phone [facility] OTHER Assessment No [...] Time Closed fracture of right tibial plateau [id number] 9105 Active 2024 SHAHEEN VALLE NP [address] , [address], [place], [address], [facility] [employer] [facility] 5 14:01:06 Dementia 85512361 Active 2024 SHAHEEN VALLE NP [address] , [address], [place], [address], [facility] [employer] [facility] 5 14:19:29 Onychomycos is 218236117 Active 2024 SHAHEEN VALLE NP [address] , [address], [place], [address], [facility] [employer] 5 14:19:41 Abdominal aortic aneurysm 787083262 Active 2024 SHAHEEN VALLE NP [address] , [address], [place], [address], [facility] [employer] [facility] 5 14:20:06 Osteoarthri tis 705844062 Active 2024 R knee SHAHEEN VALLE NP [address] [facility], [address], [place], [address], [facility] [employer] [facility] 5 14:20:19 Post-jolynn ctomy syndrome 87898664 Active 2024 SHAHEEN VALLE NP [address] [facility], [address], [place], [place], [address], [facility] [employer] [facility] 5 14:20:30 Hypertensiv e disorder 93664751 Active 2024 SHAHEEN VALLE NP [address] [facility], [address], [place], [place], [address], [facility] [employer] [facility] 5 14:20:36 Depressive disorder 77145716 Active 2024 SHAHEEN VALLE NP [address] [facility], [address], [place], [address], [facility] [employer] [facility] 5 14:20:44 Overactive urinary bladder 105088909 Active 2024 SHAHEEN VALLE NP [address] [facility], [address], [place], [address], [facility] [employer] [facility] 5 14:20:55 Gastroesoph ageal reflux disease without esophagitis 847907868 Active 2024 SHAHEEN VALLE NP [address] [facility], [address], [place], [address], [facility] [employer] [facility] 5 14:29:31 Problem Notes None recorded. Medical Equipment None Reported. Allergies Allergen ID Allergen Name Allergen Category Reaction Reaction Severity Criticality Documentation Date Start Date Code Code System Note Provider Name and Address Organization Details Recorded Time 58353 yellow dye medicatio n Not available Not available Not available 10/26/2024 48606 UNK #5, throa t close s Not Available Not Available Not Available 68854 ibuprofen medicatio n Not available Not available Not available 10/26/2024 5640 RxNorm throa t swell ing Not Available Not Available Not Available 94430 orange (food color) medicatio n Not available Not available Not available 10/26/2024 34144 UNK #8, throa t close s Not Available Not Available Not Available Medications Not known to be on any medication Vitals Date Recorded Body weight Heart rate Respiratory rate Body temperature Oxygen saturation Oxygen saturation in Arterial blood by Pulse oximetry Systolic blood pressure Diastolic blood pressure Provider Name and Address Organization Details Last Updated DateTime 5 03194.6 4 g 78 /min 18 /min 97.9 [degF] 97 % 97 % 117 mm[Hg] 68 mm[Hg] Ella Larose NP [address] [facility], [address], [place], [address], [facility] [employer] 5 14:06:56 Social History Question Answer Notes LastModified by Organizat ion Details LastModified Time Tobacco Smoking Status Former Smoker pt. unable to provide details SHAHEEN VALLE NP [address] [facility], [address], [place], [address], [facility] [employer] 10/26/2024 13:41:46 What Is Your Level Of Alcohol Consumption? None Unknown Information not available 10/26/2024 What Is Your Code Status? Full Code [email or web address] Information not available 10/26/2024 Do You Have A Medical Power Of Net Software Developer? Yes HAs HCP - Invoke [email or web address] Information not available 10/26/2024 What Was The Date Of Your Most Recent Tobacco Screening? 10/26/2024 Information not available 10/26/2024 Do You Have An Out Of Hospital DNR? No Information not available 10/26/2024 Do You Use Any Illicit Or Recreational Drugs? No [email or web address] Information not available 10/26/2024 Has Tobacco Cessation Counseling Been Provided? No [email or web address] Information not available 10/26/2024 Do You Or [...] Recorded Time Tdap 0 completed Ildefonso bell, [facility] [facility] 10/27/2024 16:14:18 Td(adult) unspecified formulation 0 completed Ildefonso bell [facility] [employer] [facility] 10/27/2024 16:14:30 pneumococcal polysaccharide PPV23 0 completed Ildefonso DowMarvin null, [facility] 10/27/2024 16:14:43 influenza, unspecified formulation 0 completed Ildefonso AdenJonahMuir null, [facility] 10/27/2024 16:14:54 SARS-COV-2 (COVID-19) vaccine, UNSPECIFIED 1 completed Ildefonso DowmarybelJonahWood [facility], [facility] 10/27/2024 16:15:18 SARS-COV-2 (COVID-19) vaccine, UNSPECIFIED 1 completed Ildefonso DowmarybelJonahMuir [facility], [facility] 10/27/2024 16:15:24 Past Encounters Encounter ID Performer Location Encounter Start Date Encounter Closed Date Diagnosis/Indication Diagnosis SNOMED-CT Code Diagnosis ICD10 Code Diagnosis Note [id number] SHAHEEN VALLE NP [facility] [address] [place] [address] 11/02/2024 11:38:13 11/04/2024 14:34:17 Closed fracture of right tibial plateau [id number] 9871260 S82.144D s/p fall at home.Right tibial plateau fracture confirmed on x ray and CTPlaced im immobilize r, made non weight bearing.Ne eds [facility] Ortho follow upPT OT eval and tx. to continue.G oal is to return home.Kay nue sched. and prn APAP for pain as well as ultram 50 mg bid prn.Monito r pain, VS, labs, CSM for changeAdju st meds prnUpdate Ortho with concerns Dementia 05744806 F03.C3 Severe, unable to converse appropriat angela. Word salad, unable to focus on task at hand.No dx. listed in PMH on ER paperwork, noted in text once.Orien carolin x 1 only.BIMS 0/15Contin ue home meds:seroq uel 25 mg bidhydroxy zine 25 mg bidsertral ine 25 mg qdmelatoni n 10 mg q HSremeron 30 mg q hsInvoke HCPPsych eval prn Depressive disorder 4909 5130 F32.A ?On zoloft 25 mg qd, remeron 30 mg qd - continueMo nitor mood, behaviorsP sych eval prn Post-yariel ectomy syndrome 29100796 M96.1 APAP bid and prnDiclofe nac to back and knees qid prnGabapen tin 800 mg bid prnultram 50 mg bid prn Hypertensive disorder 38 531118 I10 Continue norvasc 5 mg qdMonitor VS and need to adjust med prn. Overactive urinary bladder 986054890 N32.81 ?Continue oxybutinin 5 mg qd Gastroesop hageal reflux disease without esophagitis 046361423 K21.9 ?On prilosec 20 mg qd - continueMe ntion in ER paperwork of already scheduled GI appt. coinciding with stay in ER. Son wanted to take her to the appointmen t from the ER because she waited 9 months to get this appointmen t. Unclear what the appt. was for, but will need to reschedule as outpt. [id number] Ella Larose NP [address] [address] 11/07/2024 08:58:40 11/09/2024 10:45:50 Closed fracture of right tibial plateau [id number] 6275058 S82.144D s/p fall at home with transferri ng.She followed up with ortho on 11/03/24 with new rec:right tibial plateau NWB with brace for transferso lesa to perform rom of kneeok to exercise quadfu 6 weeks on 12/14/24 @ 945 am with environmental air specialist as she is not able to [...] st meds prnUpdate Ortho with concerns Dementia 12700078 F03.C3 Severe, unable to converse appropriat angela. Word salad, unable to focus on task at hand.No dx. listed in PMH on ER paperwork, noted in text once.Orien carolin x 1 only.BIMS 0/15Contin ue:seroque l 25 mg bidhydroxy zine 25 mg bidsertral ine 25 mg qdmelatoni n 10 mg q HSremeron 30 mg q hsInvoke HCPPsych eval prn Depressive disorder 7277 9007 F32.A zoloft 25 mg qdremeron 30 mg qdMonitor mood, behaviorsP sych eval prn Post-yariel ectomy syndrome 62029308 M96.1 APAP bid and prnDiclofe nac to back and knees qid prnGabapen tin 800 mg bid prnultram 50 mg bid prn Hypertensive disorder 38 078116 I10 Continue norvasc 5 mg qdMonitor VS and need to adjust med prn. Gastroesop hageal reflux disease without esophagitis 513803750 K21.9 cont prilosec 20 mg qd ?had scheduled GI appt.but missed it due ot ERreschedu le GI as outpt. Asthenia 29936365 R53.1 continue PT OT heremonito r [id number] SHAHEEN VALLE, KELLEY [address] [address] 11/16/2024 13:55:26 11/18/2024 09:50:50 Closed fracture of right tibial plateau 6387236163 5450927 S82.144D s/p fall at home.Right tibial plateau [...] Ortho with concernsNe xt appt. 12/14 Dementia 91765460 F03.C3 Severe, unable to converse appropriat angela. [...] behaviorsP sych eval prn Post-yariel ectomy syndrome 58717300 M96.1 Continue:A PAP bid and prnDiclofe nac to back and knees qid prnGabapen tin 800 mg bid prnultram 50 mg bid prn Hypertensive disorder 38 202021 I10 VSSContinu e norvasc 5 mg qdMonitor VS and need to adjust med prn. Overactive urinary bladder 096614552 N32.81 Continue oxybutinin 5 mg qdMonitor sx. Gastroesop hageal reflux disease without esophagitis 502336404 K21.9 Continue prilosec 20 mg qd.Mention in ER paperwork of already scheduled GI appt. coinciding with stay in ER. Son wanted to take her to the appointmen t from the ER because she waited 9 months to get this appointmen t. Unclear what the appt. was for, but will need to reschedule as outpt. [id number] Ella Larose NP [address] [address] 11/24/2024 11:42:30 11/25/2024 13:50:18 Closed fracture of right tibial plateau 6050963627 3236299 S82.144D s/p fall at home here for [...] concernsNe xt appt. 12/14 with ortho Dementia 82292994 F03.C3 Severe, unable to converse appropriat angela.Bethany [...] behaviorsP sych eval prn Post-yariel ectomy syndrome 56461764 M96.1 stableCont inue:APAP bid and prnDiclofe nac to back and knees qid prnGabapen tin 800 mg bid prnultram 50 mg bid prn Hypertensive disorder 38 137874 I10 VSSContinu enorvasc 5 mg qdMonitor VS and need to adjust med prn. Overactive urinary bladder 588217853 N32.81 Continueox ybutinin 5 mg qdMonitor sx. [id number] [facility] [address] 12/02/2024 08:19:51 12/05/2024 10:21:42 Dementia 14133472 F03.C3 Severe, unable to converse appropriat angela.Spanis [...] Closed fra cture of right tibial plateau 7738488326 7633488 S82.144D s/p fall at home here for rehab and therapyRig ht tibial plateau fracture confirmed on x ray and CTPlaced im immobilize r, made non weight bearing. [facility] Ortho follow up on 11/03, remainsNWB .OK to transfer with brace, OK for knee ROM and quad exercises. PT OT eval and tx. to continue with therapyGoa l is to return home.Kay nuesched. and prn APAP for painultram 50 mg bid prn.Monito r pain, VS, labs, CSM for changeAdju st meds prnUpdate Ortho with concernsNe xt appt. 12/14 with ortho Depressive disorder 3578 9006 F32.A stableCont inuezoloft 25 mg qdremeron 30 mg qdMonitor mood, behaviorsP sych eval prn Post-yariel ectomy syndrome 67431202 M96.1 stableCont inue:APAP bid and prnDiclofe nac to back and knees qid prnGabapen tin 800 mg bid prnultram 50 mg bid prn Hypertensive disorder 38 757134 I10 VSSContinu enorvasc 5 mg qdMonitor VS and need to adjust med prn. Overactive urinary bladder 271821901 N32.81 Continueox ybutinin 5 mg qdMonitor sx. Health Concerns Section Related Observation LastModified by Organization Detai ls LastModified Time None Recorded Concern Status LastModified by Organization Details LastModified Time None Recorded Payers Encounter Date Sequence Insurance Name Policy Number Policy Sheets Covered Member ID Sheets Member ID Guarantor Name 12/02/2024 1 [place]: [employer] Brooklyn Villalpando-B [id number] Brooklyn Banks 12/02/2024 2 [place] [facility] Brooklyn Banks [id number] Brooklyn Banks Notes Date Note Type Note Provider Name and Address Organization Details Recorded Time 12/02/2024 text/html Pt is seen today for an acute rounding visit. PMH: onychomycosis, aneurysm of infrarenal abdominal aorta, R jose luis OA, postlaminectomy syndrome, HTN, depression, ? impaired cognition/dementia, OAB Pt is a 74 yo lady, admitted to [facility] 10/25/24 from [facility] after an ER visit due to a fall and right knee pain here for rehab. Since here at [facility]:She continues to work with therapy remaining confused [...] requests she stay a bit longer per social service worker. On exam, she is sitting in dining room in NAD confused and nonsensical at baseline and smiling speaking in Estonian. Overall weight stable at 110lbs over last few months. of note: [facility] no MOLST[facility] HCP Ella Larose, KELLEY [address] [facility], [address], [place], [address], [facility] - [employer] 12/02/2024 14:15:30 OBGyn Episode No OBEpisode recorded.
--- OUTSIDE RECORDS SUMMARY | 2024-12-16 11:17 | XMS_ITS | Patient Health Record ---
Author Organization [facility] Address [address] [facility] [address] [place] [address] Support Name Relationship Address Phone Brooklyn Villalpando Guarantor Unknown Reason For Referral No Information Plan Of Treatment No Information
== END 2024-12-14 10:07 | disposition home or self-care (01) ==
LOC: HO.HOSX 10:06
PROVIDERS: Visit Provider Physician Assistant
DX: M25.569 Pain in unspecified knee (principal); S82.141D Displaced bicondylar fracture of right tibia, subsequent encounter for closed fracture with routine healing
CPT/HCPCS: 73560; 99212

== ENCOUNTER 2025-01-25 09:29 | Outpatient (REF) | payer MEDICARE, MEDICAID, SELFPAY ==
--- OUTSIDE RECORDS SUMMARY | 2025-01-26 10:26 | XMS_ITS | Data Portability ---
Author Organization [facility] [employer] [facility], Main Office Address [address] [place] [address] Care Team Providers Care Orthotics Assistant Name Role Phone MAT CASAREZ - 2ND [...] Time Closed fracture of right tibial plateau [id number] 9105 Active 2024 SHAHEEN VALLE NP [address], [address], [place], [address], [facility] [employer] 5 14:01:06 Dementia 42389029 Active 2024 SHAHEEN VALLE NP [address], [address], [place], [address], [facility] [employer] 5 14:19:29 Onychomycos is 613680862 Active 2024 SHAHEEN VALLE NP [address], [address], [place], [address], [facility] [employer] 5 14:19:41 Abdominal aortic aneurysm 873430037 Active 2024 SHAHEEN VALLE NP [address], [address], [place], [address], [facility] [employer] 5 14:20:06 Osteoarthri tis 640827380 Active 2024 R knee SHAHEEN VALLE NP [address], [address], [place], [address], [facility] [employer] [facility] 5 14:20:19 Post-jolynn ctomy syndrome 28210911 Active 2024 SHAHEEN VALLE NP [address], [address], [place], [address], [facility] [employer] [facility] 5 14:20:30 Hypertensiv e disorder 54423275 Active 2024 SHAHEEN VALLE NP [address], [address], [place], [address], [facility] [employer] [facility] 5 14:20:36 Depressive disorder 17098253 Active 2024 SHAHEEN VALLE NP [address], [address], [place], [address], [facility] [employer] [facility] 5 14:20:44 Overactive urinary bladder 892557048 Active 2024 SHAHEEN VALLE NP [address], [address], [place], [address], [facility] [employer] [facility] 5 14:20:55 Gastroesoph ageal reflux disease without esophagitis 420124206 Active 2024 SHAHEEN VALLE NP [address], [address], [place], [address], [facility] [employer] [facility] 5 14:29:31 Primary insomnia 8266102 Active 2024 Roger Tellez MD [address], [address], [place], [address], [facility] [employer] [facility] 5 11:22:16 Problem Notes None recorded. Medical Equipment None Reported. Allergies Allergen ID Allergen Name Allergen Category Reaction Reaction Severity Criticality Documentation Date Start Date Code Code System Note Provider Name and Address Organization Details Recorded Time 01812 yellow dye medicatio n Not available Not available Not available 10/26/2024 78024 UNK #5, throa t close s Not Available Not Available Not Available 16173 ibuprofen medicatio n Not available Not available Not available 10/26/2024 5640 RxNorm throa t swell ing Not Available Not Available Not Available 20967 orange (food color) medicatio n Not available Not available Not available 10/26/2024 52845 UNK #8, throa t close s Not Available Not Available Not Available Medications Not known to be on any medication Vitals Date Recorded Body weight Heart rate Respiratory rate Body temperature Oxygen saturation Oxygen saturation in Arterial blood by Pulse oximetry Systolic blood pressure Diastolic blood pressure Provider Name and Address Organization Details Last Updated DateTime 5 44412.6 4 g 78 /min 18 /min 97.9 [degF] 97 % 97 % 117 mm[Hg] 68 mm[Hg] Ella Larose NP [address], [address], [place], [address], [facility] 5 14:06:56 Date Recorded Body weight Heart rate Respiratory rate Body temperature Oxygen saturation Oxygen saturation in Arterial blood by Pulse oximetry Systolic blood pressure Diastolic blood pressure Provider Name and Address Organization Details Last Updated DateTime 5 23697.1 6 g 72 /min 18 /min 97.6 [degF] 96 % 96 % 129 mm[Hg] 67 mm[Hg] Ella Larose NP [address] [facility] [address], [place], [address], [facility] 5 12:23:57 Date Recorded Body weight Heart rate Respiratory rate Body temperature Oxygen saturation Oxygen saturation in Arterial blood by Pulse oximetry Systolic blood pressure Diastolic blood pressure Provider Name and Address Organization Details Last Updated DateTime 5 34345.1 6 g 72 /min 18 /min 98.6 [degF] 98 % 98 % 129 mm[Hg] 67 mm[Hg] Ella Larose NP [address] [facility], [place], [address], [facility] 5 14:15:58 Date Recorded Body weight Heart rate Respiratory rate Body temperature Oxygen saturation Oxygen saturation in Arterial blood by Pulse oximetry Systolic blood pressure Diastolic blood pressure Provider Name and Address Organization Details Last Updated DateTime 5 83163.1 6 g 70 /min 18 /min 97.9 [degF] 97 % 97 % 129 mm[Hg] 67 mm[Hg] Ella Larose NP [address] [facility], [place], [address], [facility] 5 12:27:01 Date Recorded Systolic blood pressure Diastolic blood pressure Provider Name and Address Organization Details Last Updated DateTime 12/31/2024 129 mm[Hg] 67 mm[Hg] Roger Tellez MD [address], [address], [place], [address], [facility] [employer] 12/31/2024 11:16:43 Social History Question Answer Notes LastModified by Organizat ion Details LastModified Time Tobacco Smoking Status Former Smoker pt. unable to provide details SHAHEEN VALLE NP [address], [address], [place], [address], [facility] [employer] 10/26/2024 13:41:46 What Is Your Level Of Alcohol Consumption? None Unknown [email or web address] Information not available 10/26/2024 What Is Your Code Status? Full Code [email or web address] Information not available 10/26/2024 Do You Have A Medical Power Of Icu Manager? Yes HAs HCP - Invoke [email or web address] Information not available 10/26/2024 What Was The Date Of Your Most Recent Tobacco Screening? 10/26/2024 [email or web address] Information not available 10/26/2024 Do You Have An Out Of Hospital DNR? No [email or web address] Information not available 10/26/2024 Do You Use Any Illicit Or Recreational Drugs? No [email or web address] Information not available 10/26/2024 Has Tobacco Cessation Counseling Been Provided? No [email or web address] Information not available 10/26/2024 Do You Or Have You Ever Used Any Other Forms Of Tobacco Or Nicotine? No [email or web address] Information not available 10/26/2024 Sex: Unknown Functional Status None recorded. Mental Status None recorded. Family History Nothing Reported Notes:N/C Medical History No medical history recorded. Gynecological HistoryNo gynecological history recorded. Obstetrics History GPAL:G 0 P 0 0 0 0 Immunizations Vaccine Type Date Status Note Provider Nam e and Address Organization Details Recorded Time Tdap 0 completed Ildefonso bell [facility] 10/27/2024 16:14:18 Td(adult) unspecified formulation 0 completed Ildefonso bell [facility] 10/27/2024 16:14:30 pneumococcal polysaccharide PPV23 0 completed Ildefonso bell, [facility] 10/27/2024 16:14:43 influenza, unspecified formulation [facility] 16:14:54 SARS-COV-2 (COVID-19) vaccine, UNSPECIFIED 1 completed Ildefonso bell, [facility] 10/27/2024 16:15:18 SARS-COV-2 (COVID-19) vaccine, UNSPECIFIED 1 completed Ildefonso [facility] 10/27/2024 16:15:24 Past Encounters Encounter ID Performer Location Encounter Start Date Encounter Closed Date Diagnosis/Indication Diagnosis SNOMED-CT Code Diagnosis ICD10 Code Diagnosis Note [id number] SHAHEEN VALLE NP [facility] [address] [place] [address] 10/26/2024 13:45:29 10/27/2024 09:59:24 Closed fracture of right tibial plateau [id number] 2771801 S82.144D s/p fall at home.Right tibial plateau fracture confirmed on x ray and CTPlaced im immobilize r, made non weight bearing.Ne eds C Ortho follow upPT OT eval and tx.Goal is to return home.Kay nue sched. and prn APAP for pain as well as ultram 50 mg bid prn.Monito r pain, VS, labs, CSM for changeAdju st meds prnUpdate Ortho with concerns Dementia 61343765 F03.C3 Severe, unable to converse appropriat angela. Word salad, unable to focus on task at hand.No dx. listed in PMH on ER paperwork, noted in text once.Orien carolin x 1 only.BIMS 0/15Contin ue home meds:seroq uel 25 mg bidhydroxy zine 25 mg bidsertral ine 25 mg qdmelatoni n 10 mg q HSremeron 30 mg q hsInvoke HCPPsych eval prn Depressive disorder 6338 4112 F32.A ?On zoloft 25 mg qd, remeron 30 mg qd - continueMo nitor mood, behaviorsP sych eval prn Post-yariel ectomy syndrome 48096771 M96.1 APAP bid and prnDiclofe nac to back and knees qid prnGabapen tin 800 mg bid prnultram 50 mg bid prn Hypertensive disorder 38 184649 I10 Continue norvasc 5 mg qdMonitor VS and need to adjust med prn. Overactive urinary bladder 729962822 N32.81 ?Continue oxybutinin 5 mg qd Gastroesop hageal reflux disease without esophagitis 729902281 K21.9 ?On prilosec 20 mg qd - continueMe ntion in ER paperwork of already scheduled GI appt. coinciding with stay in ER. Son wanted to take her to the appointmen t from the ER because she waited 9 months to get this appointmen t. Unclear what the appt. was for, but will need to reschedule as outpt. [id number] [facility] [address] 10/27/2024 09:44:18 10/28/2024 10:30:52 Closed fracture of right tibial plateau 7484143968 1288402 S82.144D see HPIfractur e lateral tibial plateau and question avulsion fx to baseline of ACLRecomme nded NWB wtih immobilize r placed to f/u with orthofollo w ortho recs and update with concernsPT OT eval and treatmonit or pain control Dementia 56791153 F03.C3 appears with baseline dementiawi ll request prior PCP notesinvok e HCPcontinu e supportive caremonito r need for increased support in community vs need to transition to LTCmonitor for behaviors on seroquelps ych to eval Depressive disorder 5977 9007 F33.8 probable underlying depression maintained on zoloft and remeronpsy ch eval as above Post-yariel ectomy syndrome 06852950 M96.1 maintained ongabapent in 800 mg bid prnultram 50 mg bid prnmonitor utilizatio n and need to schedule Hypertensive disorder 38 137981 I10 norvasc 5 mg qdmonitor bp and need to titrate Overactive urinary bladder 174146257 N32.81 oxybutynin 5 mg qdmonitor for effecturol ogy eval prn Unsteady when walking 22 895686 R26.89 recurrent falls prior currently NWBtherapy as above Abdominal aortic aneurysm 871043090 I71.43 carrying dx added to PMHwill request prior notes [id number] SHAHEEN VALLE NP [address] [place] [address] 11/02/2024 11:38:13 11/04/2024 14:34:17 Closed fracture of right tibial plateau 7739302379 8767188 S82.144D s/p fall at home.Right tibial plateau [...] st meds prnUpdate Ortho with concerns Dementia 37265175 F03.C3 Severe, unable to converse appropriat angela. [...] behaviorsP sych eval prn Post-yariel ectomy syndrome 72570661 M96.1 APAP bid and prnDiclofe nac to back and knees qid prnGabapen tin 800 mg bid prnultram 50 mg bid prn Hypertensive disorder 38 009670 I10 Continue norvasc 5 mg qdMonitor VS and need to adjust med prn. Overactive urinary bladder 341182365 N32.81 ?Continue oxybutinin 5 mg qd Gastroesop hageal reflux disease without esophagitis 765307354 K21.9 ?On prilosec 20 mg qd - continueMe ntion in ER paperwork of already scheduled GI appt. coinciding with stay in ER. Son wanted to take her to the appointmen t from the ER because she waited 9 months to get this appointmen t. Unclear what the appt. was for, but will need to reschedule as outpt. [id number] Ella Larose NP [place] [address] [place] [address] 11/07/2024 08:58:40 11/09/2024 10:45:50 Closed fracture of right tibial plateau 6533007759 0359354 S82.144D s/p fall at home with transferri ng.She followed up with ortho on 11/03/24 with new rec:right tibial plateau NWB with brace for transferso lesa to perform rom of kneeok to exercise quadfu 6 weeks on 12/14/24 @ 945 am with loading unit operator as she is not able to converse [...] st meds prnUpdate Ortho with concerns Dementia 15089776 F03.C3 Severe, unable to converse appropriat angela. Word salad, unable to focus on task at hand.No dx. listed in PMH on ER paperwork, noted in text once.Orien carolin x 1 only.BIMS 0/15Contin ue:seroque l 25 mg bidhydroxy zine 25 mg bidsertral ine 25 mg qdmelatoni n 10 mg q HSremeron 30 mg q hsInvoke HCPPsych eval prn Depressive disorder 4785 9007 F32.A zoloft 25 mg qdremeron 30 mg qdMonitor mood, behaviorsP sych eval prn Post-yariel ectomy syndrome 16098825 M96.1 APAP bid and prnDiclofe nac to back and knees qid prnGabapen tin 800 mg bid prnultram 50 mg bid prn Hypertensive disorder 38 125033 I10 Continue norvasc 5 mg qdMonitor VS and need to adjust med prn. Gastroesop hageal reflux disease without esophagitis 296915096 K21.9 cont prilosec 20 mg qd ?had scheduled GI appt.but missed it due ot ERreschedu le GI as outpt. Asthenia 08195076 R53.1 continue PT OT heremonito r [id number] SHAHEEN VALLE, KELLEY [facility] [address] [place] [address] 11/16/2024 13:55:26 11/18/2024 09:50:50 Closed fracture of right tibial plateau 4536061028 1531389 S82.144D s/p fall at home.Right tibial plateau [...] Ortho with concernsNe xt appt. 12/14 Dementia 08418649 F03.C3 Severe, unable to converse appropriat angela. Word salad, unable to focus on task at hand.No dx. listed in PMH on ER paperwork, noted in text once.Orien carolin x 1 only.BIMS 0/15Contin ue home meds:seroq uel 25 mg bidhydroxy zine 25 mg bidsertral ine 25 mg qdmelatoni n 10 mg q HSremeron 30 mg q hsInvoke HCPPsych eval prn Depressive disorder 0105 9007 F32.A Continue zoloft 25 mg qd, remeron 30 mg qdMonitor mood, behaviorsP sych eval prn Post-yariel ectomy syndrome 92844755 M96.1 Continue:A PAP bid and prnDiclofe nac to back and knees qid prnGabapen tin 800 mg bid prnultram 50 mg bid prn Hypertensive disorder 38 711480 I10 VSSContinu e norvasc 5 mg qdMonitor VS and need to adjust med prn. Overactive urinary bladder 180528622 N32.81 Continue oxybutinin 5 mg qdMonitor sx. Gastroesop hageal reflux disease without esophagitis 462422657 K21.9 Continue prilosec 20 mg qd.Mention in ER paperwork of already scheduled GI appt. coinciding with stay in ER. Son wanted to take her to the appointmen t from the ER because she waited 9 months to get this appointmen t. Unclear what the appt. was for, but will need to reschedule as outpt. [id number] Ella Larose, KELLEY [facility] [address] [place] [address] 11/24/2024 11:42:30 11/25/2024 13:50:18 Closed fracture of right tibial plateau 4068664243 5080419 S82.144D s/p fall at home here for [...] concernsNe xt appt. 12/14 with ortho Dementia 09013889 F03.C3 Severe, unable to converse appropriat angela.Spanis h speakingWo rd salad, unable to focus on task at hand.No dx. listed in PMH on ER paperwork, noted in text once.Orien carolin x 1 only.BIMS 0/15 on admits invokedCon tinue:sero quel 25 mg bidhydroxy zine 25 mg bidsertral ine 25 mg qdmelatoni n 10 mg q HSremeron 30 mg q hsPsych eval prn Depressive disorder 6251 8437 F32.A stableCont inuezoloft 25 mg qdremeron 30 mg qdMonitor mood, behaviorsP sych eval prn Post-yariel ectomy syndrome 58261848 M96.1 stableCont inue:APAP bid and prnDiclofe nac to back and knees qid prnGabapen tin 800 mg bid prnultram 50 mg bid prn Hypertensive disorder 38 452724 I10 VSSContinu enorvasc 5 mg qdMonitor VS and need to adjust med prn. Overactive urinary bladder 234128946 N32.81 Continueox ybutinin 5 mg qdMonitor sx. [id number] Ella Larose, KELLEY [facility] [address] [place] [address] 12/02/2024 08:19:51 12/05/2024 10:21:42 Dementia 32920006 F03.C3 Severe, unable to converse appropriat angela.Spanis [...] Closed fra cture of right tibial plateau 2625029264 8385759 S82.144D s/p fall at home here for rehab and therapyRig ht tibial plateau fracture confirmed on x ray and CTPlaced im immobilize r, made non weight bearing. [facility] [place] follow up on 11/03, remainsNWB .OK to transfer with brace, OK for knee ROM and quad exercises. PT OT eval and tx. to continue with therapyGoa l is to return home.Kay nuesched. and prn APAP for painultram 50 mg bid prn.Monito r pain, VS, labs, CSM for changeAdju st meds prnUpdate Ortho with concernsNe xt appt. 12/14 with ortho Depressive disorder 8208 2008 F32.A stableCont inuezoloft 25 mg qdremeron 30 mg qdMonitor mood, behaviorsP sych eval prn Post-yariel ectomy syndrome 06321392 M96.1 stableCont inue:APAP bid and prnDiclofe nac to back and knees qid prnGabapen tin 800 mg bid prnultram 50 mg bid prn Hypertensive disorder 38 813952 I10 VSSContinu enorvasc 5 mg qdMonitor VS and need to adjust med prn. Overactive urinary bladder 619584993 N32.81 Continueox ybutinin 5 mg qdMonitor sx. [id number] Ella Larose NP [facility] [address] 12/14/2024 12:23:17 12/15/2024 12:52:53 Closed fracture of right tibial plateau 5268494952 8038158 S82.144D s/p fall at home here for rehab and therapyRig ht tibial plateau fracture confirmed on x ray and CT Ortho on 12/14/24 today. Recommenda tion is WBAT with walker, rom, gait training and fu with patient care in 6 weeks with loading unit operator. Goal is to return home on thursdayCont inuesched. and prn APAP for painultram 50 mg prn.Adjust meds prnUpdate Ortho with concernsNe xt appt. in 6 weeks with caregiver for fu Dementia 52522915 F03.C3 Severe, unable to converse appropriat angela.Spanis h speakingOr iented x 1 only. nonsensica lBIMS 0/15 on admits invokedCon tinue:sero quel 25 mg bidhydroxy zine 25 mg bidsertral ine 25 mg qdmelatoni n 10 mg q HSremeron 30 mg q hsPsych eval prn [id number] Ella Larose NP [facility] [address] [address] 12/21/2024 12:52:12 12/22/2024 16:18:37 Closed fracture of right tibial plateau 3118909053 9371809 S82.144D s/p fall at home here for rehab and therapyRig ht tibial plateau fracture confirmed on x ray and CT Ortho on 12/14/24 Rec:WBAT with walker, rom, gait training and fu with patient care in 6 weeks with loading unit operator. Goal is to return home on soon, todayConti nuesched. and prn APAP for pain3/5 ultram 50 mg prn., has not needed lately will dcAdjust meds prnUpdate Ortho with concernsNe xt appt. in 6 weeks with caregiver for fu Dementia 45151247 F03.C3 Severe, unable to converse appropriat angela.Spanis h speakingOr iented x 1 only. nonsensica lBIMS 0/15 on admit invokedCon tinue:sero quel 25 mg bidhydroxy zine 25 mg bidsertral ine 25 mg qdmelatoni n 10 mg q HSremeron 30 mg q hsPsych eval prn [id number] Roger Tellez MD [facility] [address] [address] 12/31/2024 11:16:13 01/02/2025 14:11:21 Unsteady when walking 40040096 R26.89 see HPIremains fall risk due to dementia and impulsive behaviorsm onitor fall risk Dementia 69085189 F03.C3 baseline dementiaHC P invokedcon tinue supportive caremost likely transition to LTCmonitor for behaviorsp sych eval prn Hypertensive disorder 38 954275 I10 norvasc 5 mg qdmonitor bp and need to titrate Primary insomnia 3295751 F51.01 melatonin 10 mg qhsmonitor for effect [id number] Ella Larose NP [facility] [address] [address] 01/23/2025 12:26:29 01/23/2025 12:40:01 Unsteady when walking 92673370 R26.89 see HPIremains fall risk due to dementia and impulsive behaviorsm onitor fall risk Dementia 85712231 F03.C3 baseline severe dementiaHC P invokedcon tinue supportive caremost likely transition to LTC, unclear if son will be able to care for hermonitor for behaviorsp sych eval prn Hypertensive disorder 38 144295 I10 stablenorv asc 5 mg qdmonitor bp and need to titrate Primary insomnia 8640241 F51.01 stablemela tonin 10 mg qhsmonitor for effect Closed fra cture of right tibial plateau 5451645136 5215604 S82.144D resolveds/ p fall at home here for rehab and therapyRig ht tibial plateau fracture confirmed on x ray and CT Ortho on 12/14/24 Rec:WBAT with walker, rom, gait training and fu with patient care in 6 weeks with loading unit operator. Goal is to return home ?Continue will dc scheduled tylAdjust meds prnUpdate Ortho with concernsNe xt appt. in 6 weeks with caregiver for fu Health Concerns Section Related Observation LastModified by Organization Detai ls LastModified Time None Recorded Concern Status LastModified by Organization Details LastModified Time None Recorded Advance Directives Directive None Recorded Payers Encounter Date Sequence Insurance Name Policy Number Policy Sheets Covered Member ID Sheets Member ID Guarantor Name 12/02/2024 1 [place] [facility] Brooklyn Villalpando-B ur [id number] Brooklyn Banks 12/02/2024 2 [place] [facility] Brooklyn Banks [id number] Brooklyn Banks 12/14/2024 1 [place] [facility] Brooklyn Villalpando-B ur [id number] Brooklyn Banks 12/14/2024 2 [place] [facility] Brooklyn Banks [id number] Brooklyn Banks 12/21/2024 1 [place] [facility] Brooklyn Villalpando-B ur [id number] Brooklyn Banks 12/21/2024 2 [place] [facility] Brooklyn Banks [id number] Brooklyn Banks 12/31/2024 1 [place] [facility] Brooklyn Villalpando-B ur [id number] Brooklyn Banks 12/31/2024 2 [place] [facility] Brooklyn Banks [id number] Brooklyn Banks 01/23/2025 1 [place] [facility] Brooklyn Villalpando-B ur [id number] Brooklyn Banks 01/23/2025 2 [place] [facility] Brooklyn Banks [id number] Brooklyn Banks Notes Date Note Type Note Provider Name and Address Organization Details Recorded Time 12/02/2024 text/html Pt is seen today for an acute rounding visit. PMH: onychomycosis, aneurysm of infrarenal abdominal aorta, R jose luis OA, postlaminectomy syndrome, HTN, depression, ? impaired cognition/dementia, OAB Pt is a 74 yo lady, admitted to [facility] [facility] [place] an [place] visit due to a fall and right knee pain here for rehab. Since here at [facility]:She continues to work with therapy remaining confused [...] requests she stay a bit longer per medical social consultant. On exam, she is sitting in dining room in NAD confused and nonsensical at baseline and smiling speaking in Kazakh. Overall weight stable at 110lbs over last few months. of note: She presented [place] [facility] [place] after falling at home, sustained right [...] no MOLSTInvoke HCP Ella Larose, KELLEY [address], [address], [place], [address], [employer] 12/02/2024 14:15:30 12/14/2024 text/html Brooklyn is seen today for an acute rounding visit. PMH: onychomycosis, aneurysm of infrarenal abdominal aorta, R jose luis OA, postlaminectomy syndrome, HTN, depression, ? impaired cognition/dementia, OAB Brooklyn is a 74 yo lady, admitted to [facility] 10/25/[place] [facility] [place] an [place] visit due to a fall and right knee pain here for rehab. Follow up with Ortho on 12/14/24 today. Recommendation is WBAT with walker, rom, gait training and fu with patient care in 6 weeks with loading unit operator. She is no longer on therapy and new rec above agreed. She is planned for dc to home on Thursday per staff. On exam, Brooklyn just returned from her ortho appt in [place]. She is eating lunch. She is nonsensical at baseline. of note: She [place] [facility] [place] falling at home, sustained right knee pain and swelling prompting transfer to ER. Baseline ambulation with cane and walker. CASTILLO high fall riskBIMS score 0/15Assumed full code, no MOLSTInvoke HCP Ella Larose NP [address] [facility], [address], [place], [address], [facility] 12/14/2024 12:38:16 12/21/2024 text/html [place] is seen today for an acute rounding visit. PMH: onychomycosis, aneurysm of infrarenal abdominal aorta, R jose luis OA, postlaminectomy syndrome, HTN, depression, ? impaired cognition/dementia, OAB She is a 74 yo lady, admitted to [facility] 10[place] [facility] [place] with right knee pain here for rehab. She initially presented [place] [facility] [place] falling at home, sustained right knee pain and swelling prompting transfer to ER. Baseline ambulation with cane and walker. Recent follow up with Ortho on 12/14/24. Rec: WBAT with walker, rom, gait training and fu with loading unit operator in 6 weeks with loading unit operator. She is no longer on therapy and new rec above agreed. She is planned for dc to home today, however family never called social work back and 6 calls placed. On exam, pt is smiling, seen in the activity in NAD. She is nonsensical at baseline. CASTILLO high fall riskBIMS score 0/15Assumed full code, no MOLSTInvoke HCP Ella Larose NP [address] [facility], [address], [place], [address], [facility] 12/21/2024 17:47:54 12/31/2024 text/html Patient is a 74 yo female resident seen for routine MD visit. Patient initialy admit from hospital presenting after fall while transferring to toilet, with right knee pain. Imaging positive for fracture lateral tibial plateau and question avulsion fx to baseline of ACL. Patient is able to ambulate with walker however given baseline dementia frequently ambulates independent however is high fall risk Roger Tellez MD [address] [facility], [address], [place], [address], [facility] 12/31/2024 11:22:42 01/23/2025 text/html Pt is seen for a VETERINARY SURGERY TECHNOLOGIST routine rounding visit today. PMH: onychomycosis, aneurysm of infrarenal abdominal aorta, R jose luis OA, postlaminectomy syndrome, HTN, depression, ? impaired cognition/dementia, OAB Pt is a 74 yo lady, admitted to [facility] 10/25/24 [place] [facility] [place] to a fall with right knee pain here for rehab, and now has transitioned to LTC. She continues to roam around the unit in a wheelchair pleasantly confused throughout the day. Overall, she is doing well and no concerns from nursing. Last follow up with Ortho on 12/14/24. Rec: WBAT with walker, rom, gait training and fu with loading unit operator in 6 weeks with loading unit operator. She is no longer on therapy and new rec above agreed. She has plans to go home with son, however he is not able to take her home at this time per social work. No longer co pain and will dc tylenol sched. Weight remains stable at 110 lbs. CASTILLO high fall riskBIMS score 0/15Assumed full code, no MOLSTInvoke HCP Ella Larose, KELLEY [address] [facility] [address], [address], [place], [address], [facility] 01/23/2025 12:39:59 OBGyn Episode No OBEpisode recorded.
--- OUTSIDE RECORDS SUMMARY | 2025-01-26 10:26 | XMS_ITS | Continuity of Care Document ---
Author Organization [facility] [address], [facility] Address [address] [place] [address] Care Team Providers Care Landscaping Specialist Name Role Phone [facility] OTHER Assessment No [...] Time Closed fracture of right tibial plateau [id number] 9105 Active 2024 SHAHEEN VALLE NP [address] , [address], [place], [address], [facility] [employer] [facility] 5 14:01:06 Dementia 16963287 Active 2024 SHAHEEN VALLE NP [address] , [address], [place], [address], [facility] [employer] [facility] 5 14:19:29 Onychomycos is 330674412 Active 2024 SHAHEEN VALLE NP [address] , [address], [place], [address], [facility] [employer] 5 14:19:41 Abdominal aortic aneurysm 312494453 Active 2024 SHAHEEN VALLE NP [address] , [address], [place], [address], [facility] [employer] [facility] 5 14:20:06 Osteoarthri tis 575025225 Active 2024 R knee SHAHEEN VALLE NP [address] [facility], [address], [place], [address], [facility] [employer] [facility] 5 14:20:19 Post-jolynn ctomy syndrome 58285781 Active 2024 SHAHEEN VALLE NP [address], [address], [place], [place], [address], [facility] 5 14:20:30 Hypertensiv e disorder 42779849 Active 2024 SHAHEEN VALLE NP [address], [address], [place], [address], [facility] [employer] [facility] 5 14:20:36 Depressive disorder 30346715 Active 2024 SHAHEEN VALLE NP [address], [address], [place], [address], [facility] [employer] [facility] 5 14:20:44 Overactive urinary bladder 699567723 Active 2024 SHAHEEN VALLE NP [address] , [address], [place], [address], [facility] [employer] [facility] 5 14:20:55 Gastroesoph ageal reflux disease without esophagitis 564639658 Active 2024 SHAHEEN VALLE NP [address], [address], [place], [address], [facility] [employer] [facility] 5 14:29:31 Primary insomnia 2819027 Active 2024 Roger Tellez MD [address] [facility], [address], [place], [address], [facility] [employer] [facility] 5 11:22:16 Problem Notes None recorded. Medical Equipment None Reported. Allergies Allergen ID Allergen Name Allergen Category Reaction Reaction Severity Criticality Documentation Date Start Date Code Code System Note Provider Name and Address Organization Details Recorded Time 52854 yellow dye medicatio n Not available Not available Not available 10/26/2024 38058 UNK #5, throa t close s Not Available Not Available Not Available 96060 ibuprofen medicatio n Not available Not available Not available 10/26/2024 5640 RxNorm throa t swell ing Not Available Not Available Not Available 11652 orange (food color) medicatio n Not available Not available Not available 10/26/2024 42236 UNK #8, throa t close s Not Available Not Available Not Available Medications Not known to be on any medication Vitals Date Recorded Body weight Heart rate Respiratory rate Body temperature Oxygen saturation Oxygen saturation in Arterial blood by Pulse oximetry Systolic blood pressure Diastolic blood pressure Provider Name and Address Organization Details Last Updated DateTime 5 73097.1 6 g 70 /min 18 /min 97.9 [degF] 97 % 97 % 129 mm[Hg] 67 mm[Hg] Ella Larose NP [address] [facility], [address], [place], [address], [facility] 5 12:27:01 Social History Question Answer Notes LastModified by Organizat ion Details LastModified Time Tobacco Smoking Status Former Smoker pt. unable to provide details SHAHEEN VALLE NP [address] [facility], [address], [place], [address], [employer] 10/26/2024 13:41:46 What Is Your Level Of Alcohol Consumption? None Unknown Information not available 10/26/2024 What Is Your Code Status? Full Code [email or web address] Information not available 10/26/2024 Do You Have A Medical Power Of Hat Blocking Operator? Yes HAs HCP - Invoke [email or web address] Information not available 10/26/2024 What Was The Date Of Your Most Recent Tobacco Screening? 10/26/2024 Information not available 10/26/2024 Do You Have An Out Of Hospital DNR? No Information not available 10/26/2024 Do You Use Any Illicit Or Recreational Drugs? No Information not available 10/26/2024 Has Tobacco Cessation Counseling Been Provided? No [email or web address] Information not available 10/26/2024 Do You Or Have You Ever Used Any Other Forms Of Tobacco Or Nicotine? No [email or web address] Information not available 10/26/2024 Sex: Unknown Functional Status None recorded. Mental Status None recorded. Family History Nothing Reported Notes:N/C Medical History No medical history recorded. Gynecological HistoryNo gynecological history recorded. Obstetrics History GPAL:G 0 P 0 0 0 0 Immunizations Vaccine Type Date Status Note Provider Nam e and Address Organization Details Recorded Time Tdap 0 completed Ildefonso bell, [facility] 10/27/2024 16:14:18 Td(adult) unspecified formulation 0 completed Ildefonso AdenJonahMuir null, [facility] 10/27/2024 16:14:30 pneumococcal polysaccharide PPV23 0 completed Ildefonso Dickerson null, [facility] 10/27/2024 16:14:43 influenza, unspecified formulation 0 completed Ildefonso Dickerson null, [facility] 10/27/2024 16:14:54 SARS-COV-2 (COVID-19) vaccine, UNSPECIFIED 1 completed Ildefonso DowmarybelGet null, [facility] 10/27/2024 16:15:18 SARS-COV-2 (COVID-19) vaccine, UNSPECIFIED 1 completed Ildefonso DowmarybelGet null, [facility] 10/27/2024 16:15:24 Past Encounters Encounter ID Performer Location Encounter Start Date Encounter Closed Date Diagnosis/Indication Diagnosis SNOMED-CT Code Diagnosis ICD10 Code Diagnosis Note [id number] Roger Tellez MD [facility] [address] 12/31/2024 11:16:13 01/02/2025 14:11:21 Unsteady when walking 72449369 R26.89 see HPIremains fall risk due to dementia and impulsive behaviorsm onitor fall risk Dementia 37147168 F03.C3 baseline dementiaHC P invokedcon tinue supportive caremost likely transition to LTCmonitor for behaviorsp sych eval prn Hypertensive disorder 38 236707 I10 norvasc 5 mg qdmonitor bp and need to titrate Primary insomnia 3043557 F51.01 melatonin 10 mg qhsmonitor for effect [id number] Ella Larose NP [address] [address] 01/23/2025 12:26:29 01/23/2025 12:40:01 Unsteady when walking 13701920 R26.89 see HPIremains fall risk due to dementia and impulsive behaviorsm onitor fall risk Dementia 71561453 F03.C3 baseline severe dementiaHC P invokedcon tinue supportive caremost likely transition to LTC, unclear if son will be able to care for hermonitor for behaviorsp sych eval prn Hypertensive disorder 38 860402 I10 stablenorv asc 5 mg qdmonitor bp and need to titrate Primary insomnia 0770212 F51.01 stablemela tonin 10 mg qhsmonitor for effect Closed fra cture of right tibial plateau [id number] 7130894 S82.144D resolveds/ p fall at home here for rehab and therapyRig ht tibial plateau fracture confirmed on x ray and CT Ortho on 12/14/24 Rec:WBAT with walker, rom, gait training and fu with disabilities caregiver in 6 weeks with image consultant. Goal is to return home ?Continue will [...] Member ID Sheets Member ID Guarantor Name 01/23/2025 1 [place] [employer] [place] Vill[place] ur [id number] [place] Banks 01/23/2025 2 [place] [facility] [place] Banks [id number] [place] Banks Notes Date Note Type Note Provider Name and Address Organization Details Recorded Time 01/23/2025 text/html Pt is seen for a JUNIOR PROJECT COORDINATOR routine rounding visit today. PMH: onychomycosis, aneurysm of infrarenal abdominal aorta, R jose luis OA, postlaminectomy syndrome, HTN, depression, ? impaired cognition/dementia, OAB Pt is a 74 yo lady, admitted to [facility] 10/25/[address] [facility] due to a fall with right knee pain here for rehab, and now has transitioned to LTC. She continues to roam around the unit in a wheelchair pleasantly confused throughout the day. Overall, she is doing well and no concerns from nursing. Last follow up with Ortho on 12/14/24. Rec: WBAT with walker, rom, gait training and fu with image consultant in 6 weeks with image consultant. She is no longer on therapy and [...] no MOLSTInvoke HCP Ella Larose, KELLEY [address] [facility], [address], [place], [address], [facility] 01/23/2025 12:39:59 OBGyn Episode No OBEpisode recorded.
== END 2025-01-25 09:30 | disposition home or self-care (01) ==
LOC: HO.HOSX 09:29
PROVIDERS: Visit Provider Physician Assistant
DX: Z13.89 Encounter for screening for other disorder (principal)

== ENCOUNTER 2025-03-17 08:14 | Outpatient (REF) | payer MEDICARE, MEDICAID, SELFPAY ==
--- NOTE | ~2025-03-17 | XR_ITS ---
EXAMINATION: XR KNEE 1-2 VIEWS RIGHT HISTORY: M25.569 - Pain in unspecified knee COMPARISON: Comparison is made with the prior examination dated 12/14/2024. FINDINGS: AP and lateral views of the right knee are submitted. Osseous mineralization is normal. The previously seen fracture of the lateral tibial plateau is less well visualized, consistent with healing. Again seen is a linear lucency in the fibular head on the lateral view suggestive of a nondisplaced fracture. The joint spaces are preserved. There is chondrocalcinosis. There is no joint effusion. XR/XR knee RT 2V IMPRESSION: Healing fracture of the lateral tibial plateau. Possible nondisplaced fracture of the fibular head. Electronically signed by: Valentin Wilhelm MD 03/20/2025 07:29 AM EDT
--- OUTSIDE RECORDS SUMMARY | 2025-03-17 08:16 | XMS_ITS | Data Portability ---
Author Organization [facility], Main Office Address [address] [facility] [place] [address] Care Team Providers Care Park Interpretive Ranger Name Role Phone MAT CASAREZ - 2ND [...] Time Closed fracture of right tibial plateau [id number] 9105 Active 2024 SHAHEEN VALLE NP [address] [facility], [address], [place], [address], [facility] 5 14:01:06 Dementia 67179598 Active 2024 SHAHEEN VALLE NP [address] [facility], [address], [place], [address], [facility] 5 14:19:29 Onychomycos is 414459115 Active 2024 SHAHEEN VALLE NP [address] [facility], [address], [place], [address], [facility] 5 14:19:41 Abdominal aortic aneurysm 663522911 Active 2024 SHAHEEN VALLE NP [address] [facility], [address], [place], [address], [facility] 5 14:20:06 Osteoarthri tis 342149718 Active 2024 R knee SHAHEEN VALLE NP [address] [facility], [address], [place], [address], [facility] 5 14:20:19 Post-jolynn ctomy syndrome 76219643 Active 2024 SHAHEEN VALLE NP [address] [facility], [address], [place], [address], [facility] 5 14:20:30 Hypertensiv e disorder 24402523 Active 2024 SHAHEEN VALLE NP [address] [facility], [address], [place], [address], [facility] 5 14:20:36 Depressive disorder 37669443 Active 2024 SHAHEEN VALLE NP [address] [facility], [address], [place], [address], [facility] 5 14:20:44 Overactive urinary bladder 944639544 Active 2024 SHAHEEN VALLE NP [address] [facility], [address], [place], [address], [facility] 5 14:20:55 Gastroesoph ageal reflux disease without esophagitis 913919634 Active 2024 SHAHEEN VALEL NP [address] [facility], [address], [place], [address], [facility] 5 14:29:31 Primary insomnia 7463641 Active 2024 Roger Tellez MD [address] [facility], [address], [place], [address], [facility] 5 11:22:16 Problem Notes None recorded. Medical Equipment None Reported. Allergies Allergen ID Allergen Name Allergen Category Reaction Reaction Severity Criticality Documentation Date Start Date Code Code System Note Provider Name and Address Organization Details Recorded Time 45507 yellow dye medicatio n Not available Not available Not available 10/26/202419793 UNK #5, teri lima s SHAHEEN VALLE NP [address] [facility], [address], [place], [address], [facility] 5 13:38:46 59066 ibuprofen medicatio n Not available Not available Not available 10/26/2024 5640 RxNorm teri VALLE NP [address] [facility], [address], [place], [address], [facility] 5 13:39:01 56592 orange (food color) medicatio n Not available Not available Not available 10/26/2024 37113 UNK #8, teri benoit close s SHAHEEN VALLE NP [address] [facility], [facility] [address], [place], [address], [facility] 5 13:40:10 Medications Not known to be on any medication Vitals Date Recorded Body weight Heart rate Respiratory rate Body temperature Oxygen saturation Oxygen saturation in Arterial blood by Pulse oximetry Systolic blood pressure Diastolic blood pressure Provider Name and Address Organization Details Last Updated DateTime 5 77638.1 6 g 70 /min 18 /min 97.9 [degF] 97 % 97 % 129 mm[Hg] 67 mm[Hg] Ella Larose NP [address] [facility] [address], [place], [address], [facility] 5 12:27:01 Date Recorded Heart rate Respiratory rate Body temperature Oxygen saturation Oxygen saturation in Arterial blood by Pulse oximetry Systolic blood pressure Diastolic blood pressure Provider Name and Address Organization Details Last Updated DateTime 5 84 /min 18 /min 98 [degF] 96 % 96 % 122 mm[Hg] 85 mm[Hg] Ella Larose NP [address] [facility], [facility] [address], [place], [address], [facility] 5 18:24:21 Date Recorded Heart rate Respiratory rate Body temperature Oxygen saturation Oxygen saturation in Arterial blood by Pulse oximetry Systolic blood pressure Diastolic blood pressure Provider Name and Address Organization Details Last Updated DateTime 5 70 /min 18 /min 98.5 [degF] 97 % 97 % 122 mm[Hg] 85 mm[Hg] Ella Larose NP [address] [facility], [address], [place], [address], [facility] 5 20:39:25 Date Recorded Body weight Heart rate Respiratory rate Body temperature Oxygen saturation Oxygen saturation in Arterial blood by Pulse oximetry Systolic blood pressure Diastolic blood pressure Provider Name and Address Organization Details Last Updated DateTime 5 74663.0 5 g 80 /min 18 /min 97.9 [degF] 96 % 96 % 107 mm[Hg] 62 mm[Hg] Ella Larose NP [address] [facility], [address], [place], [address], [facility] 5 14:08:57 Date Recorded Body weight Heart rate Respiratory rate Body temperature Oxygen saturation Oxygen saturation in Arterial blood by Pulse oximetry Systolic blood pressure Diastolic blood pressure Provider Name and Address Organization Details Last Updated DateTime 5 15864.1 6 g 78 /min 18 /min 97.6 [degF] 97 % 97 % 127 mm[Hg] 77 mm[Hg] Ella Larose NP [address] [facility], [address], [place], [address], [facility] 5 14:36:17 Social History Question Answer Notes LastModified by La Koketa Details LastModified Time Tobacco Smoking Status Former Smoker pt. unable to provide details SHAHEEN VALLE NP [address] [facility], [address], [place], [address], [facility] 10/26/2024 13:41:46 What Is Your Code Status? Full Code [email or web address] Information not available 10/26/2024 Do You Have A Medical Power Of Superintendent Recreation? Yes HAs HCP - Invoke Information not available 10/26/2024 What Was The Date Of Your Most Recent Tobacco Screening? 10/26/2024 [email or web address] Information not available 10/26/2024 Do You Have An Out Of Hospital DNR? No [email or web address] Information not available 10/26/2024 Has Tobacco Cessation Counseling Been Provided? No [email or web address] Information not available 10/26/2024 Sex: Unknown Functional Status Question Answer Note LastModified by [employer] Details LastModified Time Do you use any illicit or recreational drugs? No [email or web address] Information not available 10/26/2024 Do you or have you ever used any other forms of tobacco or nicotine? No [email or web address] Information not available 10/26/2024 What is your level of alcohol consumption? None unknown [email or web address] Information not available 10/26/2024 Mental Status None recorded. Family History Nothing Reported Notes:N/C Medical History No medical history recorded. Gynecological HistoryNo gynecological history recorded. Obstetrics History GPAL:G 0 P 0 0 0 0 Immunizations Vaccine Type Date Status Note Provider Nam e and Address Organization Details Recorded Time Tdap 0 completed Ildefonso Dickerson [facility] 10/27/2024 16:14:18 Td(adult) unspecified formulation 0 completed Ildefonso BeeMuir [facility] 10/27/2024 16:14:30 pneumococcal polysaccharide PPV23 0 completed [facility] MarkieMuir [facility] 10/27/2024 16:14:43 influenza, unspecified formulation 0 completed [facility] MarkieMuir [facility] 10/27/2024 16:14:54 SARS-COV-2 (COVID-19) vaccine, UNSPECIFIED 1 completed [facility] [employer] [facility] 10/27/2024 16:15:18 SARS-COV-2 (COVID-19) vaccine, UNSPECIFIED 1 completed [facility] [employer] [facility] 10/27/2024 16:15:24 Past Encounters Encounter ID Performer Location Encounter Start Date Encounter Closed Date Diagnosis/Indication Diagnosis SNOMED-CT Code Diagnosis ICD10 Code Diagnosis Note [id number] SHAHEEN VALLE NP [facility] [address] [place] [address] 10/26/2024 13:45:29 10/27/2024 09:59:24 Closed fracture of right tibial plateau [id number] 7052396 S82.144D s/p fall at home.Right tibial plateau fracture confirmed on x ray and CTPlaced im immobilize r, made non weight bearing.Ne eds C Ortho follow upPT OT eval and tx.Goal is to return home.Kay nue sched. and prn APAP for pain as well as ultram 50 mg bid prn.Monito r pain, VS, labs, CSM for changeAdju st meds prnUpdate Ortho with concerns Dementia 11899083 F03.C3 Severe, unable to converse appropriat angela. Word salad, unable to focus on task at hand.No dx. listed in PMH on ER paperwork, noted in text once.Orilitzy coe x 1 only.BIMS 0/15Contin ue home meds:seroq uel 25 mg bidhydroxy zine 25 mg bidsertral ine 25 mg qdmelatoni n 10 mg q HSremeron 30 mg q hsInvoke HCPPsych eval prn Depressive disorder 3548 9007 F32.A ?On zoloft 25 mg qd, remeron 30 mg qd - continueMo nitor mood, behaviorsP sych eval prn Post-yariel ectomy syndrome 61605382 M96.1 APAP bid and prnDiclofe nac to back and knees qid prnGabapen tin 800 mg bid prnultram 50 mg bid prn Hypertensive disorder 38 851476 I10 Continue norvasc 5 mg qdMonitor VS and need to adjust med prn. Overactive urinary bladder 975655534 N32.81 ?Continue oxybutinin 5 mg qd Gastroesop hageal reflux disease without esophagitis 863129259 K21.9 ?On prilosec 20 mg qd - continueMe ntion in ER paperwork of already scheduled GI appt. coinciding with stay in ER. Son wanted to take her to the appointmen t from the ER because she waited 9 months to get this appointmen t. Unclear what the appt. was for, but will need to reschedule as outpt. [id number] Roger Tellez MD [address] [address] 10/27/2024 09:44:18 10/28/2024 10:30:52 Closed fracture of right tibial plateau [id number] 8248079 S82.144D see HPIfractur e lateral tibial plateau and question avulsion fx to baseline of ACLRecomme nded NWB wtih immobilize r placed to f/u with orthofollo w ortho recs and update with concernsPT OT eval and treatmonit or pain control Dementia 12870413 F03.C3 appears with baseline dementiawi ll request prior PCP notesinvok e HCPcontinu e supportive caremonito r need for increased support in community vs need to transition to LTCmonitor for behaviors on seroquelps ych to eval Depressive disorder 4739 3649 F33.8 probable underlying depression maintained on zoloft and remeronpsy ch eval as above Post-yariel ectomy syndrome 66747128 M96.1 maintained ongabapent in 800 mg bid prnultram 50 mg bid prnmonitor utilizatio n and need to schedule Hypertensive disorder 38 193805 I10 norvasc 5 mg qdmonitor bp and need to titrate Overactive urinary bladder 784565369 N32.81 oxybutynin 5 mg qdmonitor for effecturol ogy eval prn Unsteady when walking 22 291048 R26.89 recurrent falls prior currently NWBtherapy as above Abdominal aortic aneurysm 124172903 I71.43 carrying dx added to PMHwill request prior notes [id number] SHAHEEN VALLE NP [facility] [place] [address] 11/02/2024 11:38:13 11/04/2024 14:34:17 Closed fracture of right tibial plateau 0777598925 0715939 S82.144D s/p fall at home.Right tibial plateau [...] st meds prnUpdate Ortho with concerns Dementia 48307373 F03.C3 Severe, unable to converse appropriat angela. Word salad, unable to focus on task at hand.No dx. listed in PMH on ER paperwork, noted in text once.Orien carolin x 1 only.BIMS 0/15Contin ue home meds:seroq uel 25 mg bidhydroxy zine 25 mg bidsertral ine 25 mg qdmelatoni n 10 mg q HSremeron 30 mg q hsInvoke HCPPsych eval prn Depressive disorder 0774 1757 F32.A ?On zoloft 25 mg qd, remeron 30 mg qd - continueMo nitor mood, behaviorsP sych eval prn Post-yariel ectomy syndrome 34920741 M96.1 APAP bid and prnDiclofe nac to back and knees qid prnGabapen tin 800 mg bid prnultram 50 mg bid prn Hypertensive disorder 38 460795 I10 Continue norvasc 5 mg qdMonitor VS and need to adjust med prn. Overactive urinary bladder 508362608 N32.81 ?Continue oxybutinin 5 mg qd Gastroesop hageal reflux disease without esophagitis 185709634 K21.9 ?On prilosec 20 mg qd - continueMe ntion in ER paperwork of already scheduled GI appt. coinciding with stay in ER. Son wanted to take her to the appointmen t from the ER because she waited 9 months to get this appointmen t. Unclear what the appt. was for, but will need to reschedule as outpt. [id number] Ella Larose NP [address] [address] 11/07/2024 08:58:40 11/09/2024 10:45:50 Closed fracture of right tibial plateau 6241573380 8396158 S82.144D s/p fall at home with transferri ng.She followed up with ortho on 11/03/24 with new rec:right tibial plateau NWB with brace for transferso lesa to perform rom of kneeok to exercise quadfu 6 weeks on 12/14/24 @ 945 am with skate maker as she is not able to converse [...] st meds prnUpdate Ortho with concerns Dementia 49577649 F03.C3 Severe, unable to converse appropriat angela. Word salad, unable to focus on task at hand.No dx. listed in PMH on ER paperwork, noted in text once.Orien carolin x 1 only.BIMS 0/15Contin ue:seroque l 25 mg bidhydroxy zine 25 mg bidsertral ine 25 mg qdmelatoni n 10 mg q HSremeron 30 mg q hsInvoke HCPPsych eval prn Depressive disorder 7910 9007 F32.A zoloft 25 mg qdremeron 30 mg qdMonitor mood, behaviorsP sych eval prn Post-yariel ectomy syndrome 41020001 M96.1 APAP bid and prnDiclofe nac to back and knees qid prnGabapen tin 800 mg bid prnultram 50 mg bid prn Hypertensive disorder 38 404283 I10 Continue norvasc 5 mg qdMonitor VS and need to adjust med prn. Gastroesop hageal reflux disease without esophagitis 070277247 K21.9 cont prilosec 20 mg qd ?had scheduled GI appt.but missed it due ot ERreschedu le GI as outpt. Asthenia 99709809 R53.1 continue PT OT heremonito r [id number] SHAHEEN VALLE, [facility] [place] [address] 11/16/2024 13:55:26 11/18/2024 09:50:50 Closed fracture of right tibial plateau 4227041456 3975153 S82.144D s/p fall at home.Right tibial plateau fracture confirmed on x ray and CTPlaced im immobilize r, made non weight bearing.[facility] Ortho follow up on 11/03, remains NWB.OK to transfer with brace, OK for knee ROM and quad exercises. PT OT eval and tx. to continue.G oal is to return home.Kay nue sched. and prn APAP for pain as well as ultram 50 mg bid prn.Monito r pain, VS, labs, CSM for changeAdju st meds prnUpdate Ortho with concernsNe xt appt. 12/14 Dementia 10596588 F03.C3 Severe, unable to converse appropriat angela. [...] behaviorsP sych eval prn Post-yariel ectomy syndrome 96596173 M96.1 Continue:A PAP bid and prnDiclofe nac to back and knees qid prnGabapen tin 800 mg bid prnultram 50 mg bid prn Hypertensive disorder 38 958333 I10 VSSContinu e norvasc 5 mg qdMonitor VS and need to adjust med prn. Overactive urinary bladder 309715693 N32.81 Continue oxybutinin 5 mg qdMonitor sx. Gastroesop hageal reflux disease without esophagitis 984044275 K21.9 Continue prilosec 20 mg qd.Mention in ER paperwork of already scheduled GI appt. coinciding with stay in ER. Son wanted to take her to the appointmen t from the ER because she waited 9 months to get this appointmen t. Unclear what the appt. was for, but will need to reschedule as outpt. [id number] Ella Larose NP [address] [address] 11/24/2024 11:42:30 11/25/2024 13:50:18 Closed fracture of right tibial plateau 4145035599 2619812 S82.144D s/p fall at home here for [...] concernsNe xt appt. 12/14 with ortho Dementia 02888369 F03.C3 Severe, unable to converse appropriat angela.Spanis [...] behaviorsP sych eval prn Post-yariel ectomy syndrome 78533379 M96.1 stableCont inue:APAP bid and prnDiclofe nac to back and knees qid prnGabapen tin 800 mg bid prnultram 50 mg bid prn Hypertensive disorder 38 261453 I10 VSSContinu enorvasc 5 mg qdMonitor VS and need to adjust med prn. Overactive urinary bladder 006644367 N32.81 Continueox ybutinin 5 mg qdMonitor sx. [id number] Ella Larose, KELLEY [facility] [address] [address] 12/02/2024 08:19:51 12/05/2024 10:21:42 Dementia 17131044 F03.C3 Severe, unable to converse appropriat angela.Spanis [...] Closed fra cture of right tibial plateau 5932965289 5938722 S82.144D s/p fall at home here for rehab and therapyRig ht tibial plateau fracture confirmed on x ray and CTPlaced im immobilize r, made non weight bearing. [facility] Ortho follow up on 11/03, [...] xt appt. 12/14 with ortho Depressive disorder 3544 9007 F32.A stableCont inuezoloft 25 mg qdremeron 30 mg qdMonitor mood, behaviorsP sych eval prn Post-yariel ectomy syndrome 44812161 M96.1 stableCont inue:APAP bid and prnDiclofe nac to back and knees qid prnGabapen tin 800 mg bid prnultram 50 mg bid prn Hypertensive disorder 38 180530 I10 VSSContinu enorvasc 5 mg qdMonitor VS and need to adjust med prn. Overactive urinary bladder 668059022 N32.81 Continueox ybutinin 5 mg qdMonitor sx. [id number] Ella Larose NP [address] [address] 12/14/2024 12:23:17 12/15/2024 12:52:53 Closed fracture of right tibial plateau 9319908853 2839082 S82.144D s/p fall at home here for rehab and therapyRig ht tibial plateau fracture confirmed on x ray and CT Ortho on 12/14/24 today. Recommenda tion is WBAT with walker, rom, gait training and fu with acute care physician in 6 weeks with skate maker. Goal is to return home on thursdayCont inuesched. and prn APAP for painultram 50 mg prn.Adjust meds prnUpdate Ortho with concernsNe xt appt. in 6 weeks with caregiver for fu Dementia 01544808 F03.C3 Severe, unable to converse appropriat angela.Spanis h speakingOr iented x 1 only. nonsensica lBIMS 0/15 on admits invokedCon tinue:sero quel 25 mg bidhydroxy zine 25 mg bidsertral ine 25 mg qdmelatoni n 10 mg q HSremeron 30 mg q hsPsych eval prn [id number] Ella Larose NP [facility] [address] 12/21/2024 12:52:12 12/22/2024 16:18:37 Closed fracture of right tibial plateau 7339464415 6413604 S82.144D s/p fall at home here for rehab and therapyRig ht tibial plateau fracture confirmed on x ray and CT Ortho on 12/14/24 Rec:WBAT with walker, rom, gait training and fu with acute care physician in 6 weeks with skate maker. Goal is to return home on soon, todayConti nuesched. and prn APAP for pain3/5 ultram 50 mg prn., has not needed lately will dcAdjust meds prnUpdate Ortho with concernsNe xt appt. in 6 weeks with caregiver for fu Dementia 36944777 F03.C3 Severe, unable to converse appropriat angela.Spanis h speakingOr iented x 1 only. nonsensica lBIMS 0/15 on admit invokedCon tinue:sero quel 25 mg bidhydroxy zine 25 mg bidsertral ine 25 mg qdmelatoni n 10 mg q HSremeron 30 mg q hsPsych eval prn [id number] Roger Tellez MD [facility] [address] [address] 12/31/2024 11:16:13 01/02/2025 14:11:21 Unsteady when walking 87725873 R26.89 see HPIremains fall risk due to dementia and impulsive behaviorsm onitor fall risk Dementia 17016070 F03.C3 baseline dementiaHC P invokedcon tinue supportive caremost likely transition to LTCmonitor for behaviorsp sych eval prn Hypertensive disorder 38 522322 I10 norvasc 5 mg qdmonitor bp and need to titrate Primary insomnia 0291947 F51.01 melatonin 10 mg qhsmonitor for effect [id number] Ella Larose NP [facility] [address] [address] 01/23/2025 12:26:29 01/30/2025 11:35:53 Unsteady when walking 64661556 R26.89 see HPIremains fall risk due to dementia and impulsive behaviorsm onitor fall risk Dementia 49547446 F03.C3 baseline severe dementiaHC P invokedcon tinue supportive caremost likely transition to LTC, unclear if son will be able to care for hermonitor for behaviorsp sych eval prn Hypertensive disorder 38 592620 I10 stablenorv asc 5 mg qdmonitor bp and need to titrate Primary insomnia 2452737 F51.01 stablemela tonin 10 mg qhsmonitor for effect Closed fra cture of right tibial plateau 5451872186 7804176 S82.144D resolveds/ p fall at home here for rehab and therapyRig ht tibial plateau fracture confirmed on x ray and CT Ortho on 12/14/24 Rec:WBAT with walker, rom, gait training and fu with acute care physician in 6 weeks with skate maker. Goal is to return home ?Continue will dc scheduled tylAdjust meds prnUpdate Ortho with concernsNe xt appt. in 6 weeks with caregiver for fu [id number] Ella Larose NP [facility] [address] [address] 02/17/2025 14:28:01 02/21/2025 16:20:33 Acute COVID-19 9255224141 U07.1 tested positive for covid 19 on solati on per facility protocolzo chelle davis robitussin prnencoura ge po fluidsmoni tor [id number] Ella Larose NP [facility] [address] [address] 02/20/2025 13:35:20 02/22/2025 14:30:54 Acute COVID-19 9444354705 U07.1 tested positive for covid 19 on 02/17, asymptomat icisolatio n per facility protocolzo chelle davis robitussin prnencoura ge po fluidsmoni tor Dementia 32252826 F03.C3 baseline severe dementia, now with agitation likely related to difficulty with isolation precaution s from covid/02/17 5 trazodone 25 mg po q 6 hrs prn agitation x 14 daysHCP invokedcon tinue supportive caremost likely transition to LTC, unclear if son will be able to care for hermonitor for behaviorsp sych eval prn [id number] Ella Larose, KELLEY [facility] [address] [place] [address] 03/03/2025 09:15:30 03/06/2025 13:44:02 Dementia 95331051 F03.C3 baseline severe dementia restart trazodone 25 mg po q 6 hrs prn agitation x 14 days03/03 dc hydroxyzin e prnHCP invokedcon tinue supportive caremost likely transition to LTC, unclear if son will be able to care for hermonitor for behaviorsp sych eval prn [id number] Ella Larose NP [facility] [address] [place] [address] 03/16/2025 14:35:24 03/16/2025 14:52:51 Dementia 84339271 F03.C3 baseline severe dementiaco ntseroquel 25 mg po qdtrazodon e 25 mg po q 6 hrs prn agitation x 14 days, reeval on oing well off hydroxyzin eHCP invokedcon tinue supportive caremost likely transition to LTC, unclear if son will be able to care for hermonitor for behaviorsp sych eval prn Unsteady when walking 22 513226 R26.89 see HPI, she often is getting up and walking from wheelchair remains fall risk due to dementia and impulsive behaviorsm onitor fall risk Hypertensive disorder 38 387964 I10 stablenorv asc 5 mg qdmonitor bp and need to titrate Primary insomnia 7444967 F51.01 stablemela tonin 10 mg qhsmonitor for effect Health Concerns Section Related Observation LastModified by Organization Detai ls LastModified Time None Recorded Concern Status LastModified by Organization Details LastModified Time None Recorded Advance Directives Directive None Recorded Payers Encounter Date Sequence Insurance Name Policy Number Policy Sheets Covered Member ID Sheets Member ID Guarantor Name 01/23/2025 1 [place] [employer] [place] [employer] [id number] [place] 01/23/2025 2 [place] [facility] [place] [id number] [place] 02/17/2025 1 [place] [employer] [place] [employer] [id number] [place] 02/17/2025 2 [place] [facility] [place] [id number] [place] [employer] 02/20/2025 1 [place] [facility] [place] [employer] ur [id number] [place] 02/20/2025 2 [place] [facility] [place] [id number] [place] 03/03/2025 1 [place] [facility] [place] [employer] ur [id number] [place] 03/03/2025 2 [place] [facility] [place] [id number] [place] [employer] 03/16/2025 1 [place] [facility] [facility] [place] Vivar ur [id number] Brooklyn Banks 03/16/2025 2 [place] [facility] Brooklyn Banks [id number] Brooklyn Banks Notes Date Note Type Note Provider Name and Address Organization Details Recorded Time 01/23/2025 text/html 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 PMH: onychomycosis, aneurysm of infrarenal abdominal aorta, R jose luis OA, postlaminectomy syndrome, HTN, depression, ? impaired cognition/dementia, OAB Pt is a 74 yo lady, admitted to [facility] 10/25/24 from [facility] due to a fall with right knee pain here for rehab, and now has transitioned to LTC. She continues to roam around the unit in a wheelchair pleasantly confused throughout the day. Overall, she is doing well and no concerns from nursing. Last follow up with Ortho on 12/14/24. Rec: WBAT with walker, rom, gait training and fu with skate maker in 6 weeks with skate maker. She is no longer on therapy and new rec above agreed. She has plans to go home with son, however he is not able to take her home at this time per social work. No longer co pain and will dc tylenol sched. Weight remains stable at 110 lbs. CASTILLO high fall riskBIMS score 0/15Assumed full code, no MOLSTInvoke HCP Ella Larose, UTILITY BAG ASSEMBLER [address], [address], [place], [address], [facility] 01/23/2025 12:39:59 02/17/2025 text/html Pt is seen for a n acute visit. PMH: onychomycosis, aneurysm of infrarenal abdominal aorta, R jose luis OA, postlaminectomy syndrome, HTN, depression, ? impaired cognition/dementia, OAB She is seen for covid positive test result on 02/17 with covid in the facility. She remains asymptomatic and smiles. On exam, she denies pain, chills, fever, vomiting, nausea, sob, sore throat or cough. Vitals stable. Recent workup unremarkable. She is confused at baseline and difficult to tell if she understands the symptoms asked, but clinically asymptomatic. CASTILLO high fall riskBIMS score 0/15Assumed full code, no MOLSTInvoke HCP Ella Larose NP [address], [address], [place], [address], [facility] 02/17/2025 18:27:40 02/20/2025 text/html Pt is seen for a n acute visit. PMH: onychomycosis, aneurysm of infrarenal abdominal aorta, R jose luis OA, postlaminectomy syndrome, HTN, depression, ? impaired cognition/dementia, OAB Pt tested covid positive test result on 02/17 with covid in the facility. She remains asymptomatic. Nursng reports she is agitated lately with covid isolation and often refuses mask or to stay in her room. Nursing attempting to redirect her as able but requesting something for agitation. Vitals stable. Recent workup unremarkable.Will add trazodone 25 mg po q 6hours prn agitation x 14 days. On exam, Brooklyn is seen in her doorway in [facility]. She allows this UTILITY BAG ASSEMBLER to place a mask on her. She denies pain, chills, fever, vomiting, nausea, sob, sore throat or cough. She is confused at baseline and difficult to tell if she understands the symptoms asked, but clinically asymptomatic. CASTILLO high fall riskBIMS score 0/15Assumed full code, no MOLSTInvoke HCP Ella Larose NP [address], [address], [place], [address], [facility] 02/20/2025 20:59:22 03/03/2025 text/html Pt is seen for a n acute visit. PMH: onychomycosis, aneurysm of infrarenal abdominal aorta, R knee OA, postlaminectomy syndrome, HTN, depression, ? impaired cognition/dementia, OAB She is seen for a psych visit with recommendations to add trazodone 25 mg po q 6hours prn agitation x 14 days. DC of hydroxyzine 25mg po BID - Anticholinergic medication may result in increased confusion/falls/sedat ion. Will agree. On exam, Brooklyn is seen motoring in the halls in [facility]. She is eating and drinking well and denies any pain. Will monitor for itching. CASTILLO high fall riskBIMS score 0/15Assumed full code, no MOLSTInvoke HCP Ella Larose NP [address] [address], [place], [address], [facility] 03/03/2025 14:21:23 03/16/2025 text/html Pt is seen for a routine rounding visit today. PMH: onychomycosis, aneurysm of infrarenal abdominal aorta, R knee OA, postlaminectomy syndrome, HTN, depression, dementia, OAB Pt is a 74 yo lady, admitted to [facility] 10/25/24 from [facility] due to a fall with right knee pain here for rehab, and now has transitioned to LTC and no longer co of knee pain. She continues to roam around the unit in a wheelchair pleasantly confused throughout the day. Overall, she is doing well and no concerns from nursing. Pt tested covid positive test result on 02/17 with covid in the facility. She remained asymptomatic. Recent workup unremarkable. Trazodone 25 mg po q 6hours prn agitation x 14 days with good effect for agitation. Hydroxyzine d'cd by psych due to anticholinergic effects. Weight remains stable at 110 lbs. CASTILLO high fall riskBIMS score 0/15Assumed full code, no MOLSTHCP invoked Ella Larose NP [address], [place], [address], [facility] 03/16/2025 14:52:49 OBGyn Episode No OBEpisode recorded.
== END 2025-03-17 08:15 | disposition home or self-care (01) ==
LOC: HO.HOSX 08:14
PROVIDERS: Visit Provider Physician Assistant
DX: M25.561 Pain in right knee (principal); S82.141D Displaced bicondylar fracture of right tibia, subsequent encounter for closed fracture with routine healing; W06.XXXD Fall from bed, subsequent encounter; Y93.E8 Activity, other personal hygiene; Y92.003 Bedroom of unspecified non-institutional (private) residence as the place of occurrence of the external cause; Y99.9 Unspecified external cause status
CPT/HCPCS: 73560; 99212

== ENCOUNTER 2025-03-17 11:47 | Outpatient (AMB) | payer MEDICARE, MEDICAID, SELFPAY ==
--- NOTE | 2025-03-17 12:02 | MHC.OFFVIS ---
Intake Visit Reasons: OV- RT tibial plateau fx DOI 10/21/24 Intake Note: Brooklyn is a 74 year old female who presents with a facility maintenance technician for a follow up of RT tibia plateau fx, DOI 10/21/24. At her last visit she was cleared to weight bear as tolerated. She will follow up in 6 weeks with new x-rays. Bar Machine Operator Production Required: Yes Bar Machine Operator Production Services: Bar Machine Operator Production Present Bar Machine Operator Production Name: Henna, CCMA/LM Allergies yellow dye [Yellow Dye] Allergy (Severe, Verified 03/17/25 12:02) YELLOW #5 THROAT CLOSES ibuprofen [From Motrin] Allergy (Unknown, Verified 03/17/25 12:02) SWELL THROAT [place] #[id number] Allergy (Severe, Uncoded 03/17/25 12:02) ORANGE #8 DYE THROAT CLOSES HPI HPI OV- RT tibial plateau fx DOI 10/21/24: Details: 74-year-old female returns to the office today for a follow-up right tibial plateau fracture date of injury 10/21/2024. Patient block sealer who was present today states the patient has been nonweightbearing to her knowledge. Patient is significantly demented and unable to provide a history. [facility] Medical History External hemorrhoid Pre-ulcerative corn or callous Dysuria Onychomycosis Aneurysm of infrarenal abdominal aorta Osteoarthritis of right knee Postlaminectomy syndrome Surgical History H/O arthroscopy of shoulder H/O lumbosacral spine surgery H/O cervical spine surgery No pertinent past surgical history Family History Father No problems noted. Mother No problems noted. Social History Housing: House Alcohol intake: never Patient Tobacco Use Status: Former Tobacco user Cigarettes Per Day: 5 e-Cigarette/Vaping Use: Never Used Second Hand Smoke Exposure: No Advance Directives Date on File: 10/24/24 service: No Current occupational status: disabled Cognitive needs: Yes (cane, walker) Hearing needs: No Vision needs: Yes (glasses) Review of Systems Const All systems reviewed & are unremarkable except as noted in HPI and below Physical Exam Const General: cooperative and no acute distress Orientation/consciousness: patient oriented x3 Resp Effort & Inspection: normal respiratory effort and able to speak in complete sentences Cardio Peripheral pulses: Peripheral pulses 2+ throughout Neuro General: patient oriented x3 Extrem Other: Right knee normal to inspection. No tenderness to palpation along the proximal tibia. She can fully extend the knee. Calf supple nontender neurovascularly intact. Results Reviewed Results Reviewed: X-rays of the right knee obtained in the office today and reviewed by me show stable proximal tibia fracture without signs of displacement Assessment & Plan Assessment & Plan (1) Tibial plateau fracture, right: Code(s): S82.141A - Displaced bicondylar fracture of right tibia, initial encounter for closed fracture Category: Medical Qualifiers: Encounter type: subsequent encounter Fracture healing: with routine healing Fracture type: closed Qualified Code(s): S82.141D - Displaced bicondylar fracture of right tibia, subsequent encounter for closed fracture with routine healing Plan: Patient is now proximally 4 months post injury and can begin weight-bearing as tolerated with a walker. She should work with physical therapy for range of motion strengthening and gait training. There is any questions or concerns the patient can follow-up otherwise follow up as needed. Orders: Orders XR knee RT 2V Today M25.569 - Pain in unspecified knee Coding Level of Care Code Est Pt Level 3 (57412) Complex EM visit Add On G2211 Diagnoses Closed fracture of right tibial plateau with routine healing, subsequent encounter S82.141D Encounter type: subsequent encounter Fracture healing: with routine healing Fracture type: closed
== END 2025-03-17 12:27 | disposition home or self-care (01) ==
LOC: HO.HOS 11:47
PROVIDERS: Visit Provider Physician Assistant
DX: S82.141D Displaced bicondylar fracture of right tibia, subsequent encounter for closed fracture with routine healing (principal)
CPT/HCPCS: 99213; G2211

== ENCOUNTER → 2025-03-17 11:52 | Outpatient (BNV) | payer MEDICARE, MEDICAID, SELFPAY | PROVIDERS: Visit Provider Radiology Diagnostic Radiology | DX: S82.121A Displaced fracture of lateral condyle of right tibia, initial encounter for closed fracture (principal) | CPT/HCPCS: 73560 ==

== ENCOUNTER 2025-09-21 18:51 | Emergency (ER) | payer MEDICARE, MEDICAID, SELFPAY ==
--- NOTE | 2025-09-21 | ECG_ITS ---
Test Reason : SYNCOPE Blood Pressure : */* mmHG Vent. Rate : 64 BPM Atrial Rate : 64 BPM P-R Int : 156 ms QRS Dur : 70 ms QT Int : 390 ms P-R-T Axes : 59 11 24 degrees QTcB Int : 402 ms Normal sinus rhythm Normal ECG When compared with ECG of 07-Apr-2010 14:10, Nonspecific T wave abnormality now evident in Anterior leads Referred By: Generic ED Physician Electronically Signed By: NANCY TOWNSEND
[2025-09-21 19:10] VITALS: BP 116/64; BP 122/70; PULSE 50; PULSE 54; RESP 19; TEMP 36.7; O2SAT 96; O2SAT 97; BMI 22.7
[2025-09-21 19:22] LABS: Hematocrit 39.4 % (37.0-47.0); Hemoglobin 11.9 g/dl (12.0-16.0); Imm Gran Abs Auto 0.02 X10*3/uL (0.00-0.03); Imm Gran Pct Auto 0.4 % (0.0-0.4); Lymphocytes Absolute Auto 1.5 X10*3/uL (1.2-4.9); MANUAL DIFF FLAG SCAN; Mean Corpuscular HGB Conc 30.2 g/dl (31.0-35.0); Mean Corpuscular Hemoglobin 23.8 pg (27.0-33.0); Mean Corpuscular Volume 78.8 fL (80.0-98.0); NRBC Abs Auto 0.000 X10*3/uL (0.0-0.012); NRBC Pct Auto 0.0 /100WBC (0.0-0.2); PLT CLUMP 1; Red Blood Count 5.00 X10*6/uL (4.20-5.50); SCAN SMEAR FLAG 1
[2025-09-21 19:40] LABS: Alanine Aminotransferase 53 U/L (0-31); Albumin Level 4.1 g/dL (3.5-5.0); Alkaline Phosphatase 104 U/L (39-117); Anion Gap 14 (12-20); Aspartate Amino Transferase 35 U/L (5-31); Blood Urea Nitrogen 17 mg/dL (9-16); Calcium 9.4 mg/dL (8.4-10.2); Carbon Dioxide 24 mmol/L (22-29); Chloride 106 mmol/L (96-108); Creatinine Clr Calc Pharmacy 62.8; Estimated Glomerular Filt Rate > 60; Magnesium 1.7 mg/dL (1.6-2.6); Potassium 3.8 mmol/L (3.3-5.1); Sodium 140 mmol/L (135-145); Total Protein 7.6 g/dL (6.5-8.0)
[2025-09-21 19:49] LABS: Troponin-I High Sensitivity < 2.7 ng/L (<3.5-17.0)
[2025-09-21 19:52] LABS: White Blood Count 5.6 X10*3/uL (4.8-10.8)
[2025-09-21 20:02] LABS: Resp Syncy Virus RNA Qual PCR NEGATIVE (Negative); SARS COV2 PCR INHOUSE NEGATIVE (Negative)
[2025-09-21 20:37] VITALS: BP 96/62; PULSE 65; RESP 16; TEMP 36.4; O2SAT 98
--- NOTE | 2025-09-21 20:44 | ED.SYNCOPE ---
HPI - Syncope General Chief Complaint: Syncope Stated Complaint: syncopal episode Time Seen by Provider: 09/21/25 19:51 History of Present Illness ED Provider: haleigh HPI narrative: 74 F with transient LOC/syncope prior to arrival. No trauma sustained per report. 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 PT asymptomatic , calm and comfortable. Related Data Home Medications ?Medication ?Instructions ?Recorded ?Confirmed acetaminophen 325 mg tablet 325 mg PO QID PRN Pain or fever 10/22/24 10/22/24 gabapentin 800 mg tablet 800 mg PO BID PRN Pain 10/22/24 10/22/24 melatonin 12 mg disintegrating 12 mg PO BEDTIME 10/22/24 10/22/24 tablet diphenoxylate-atropine 2.5 1 tab PO BEDTIME PRN 11/03/24 mg-0.025 mg tablet (Lomotil) Previous Rx's ?Medication ?Instructions ?Recorded miscellaneous medical supply #1 ea 12/07/23 (Blood Pressure Cuff) oxybutynin chloride 5 mg 5 mg PO DAILY #90 tabs 12/29/23 tablet,extended release 24 hr quetiapine 25 mg tablet 25 mg PO BID 90 days #180 tabs 04/05/24 Shower Chair #1 ea 09/02/24 amlodipine 5 mg tablet 5 mg PO DAILY #90 tabs 09/03/24 mirtazapine 30 mg tablet 30 mg PO BEDTIME 90 days #90 tabs 09/13/24 omeprazole 20 mg capsule,delayed 20 mg PO DAILY 90 days #90 caps 09/28/24 release sertraline 25 mg tablet 25 mg PO DAILY #90 tabs 09/28/24 hydroxyzine HCl 25 mg tablet 25 mg PO BID #60 tabs 10/10/24 diclofenac sodium 1 % topical gel 2 g topical QID PRN Pain 30 days 11/29/24 #100 grams tramadol 50 mg tablet 50 mg PO BID PRN pain 7 days #14 11/29/24 tabs Allergies Allergy/AdvReac Type Severity Reaction Status Date / Time yellow dye (Yellow Dye) Allergy Severe YELLOW #5 Verified 09/21/25 19:12 THROAT CLOSES ibuprofen (From Motrin) Allergy Unknown SWELL Verified 09/21/25 19:12 THROAT [place] #[id number] Allergy Severe ORANGE #8 Uncoded 09/21/25 19:12 DYE THROAT CLOSES PMFSH Past Medical History Medical History External hemorrhoid Pre-ulcerative corn or callous Dysuria Onychomycosis Aneurysm of infrarenal abdominal aorta Osteoarthritis of right knee Postlaminectomy syndrome Surgical History H/O arthroscopy of shoulder H/O lumbosacral spine surgery H/O cervical spine surgery No pertinent past surgical history Family History Family History Father No problems noted. Mother No problems noted. Social History Social History Housing: House Alcohol intake: never Patient Tobacco Use Status: Former Tobacco user Cigarettes Per Day: 5 e-Cigarette/Vaping Use: Never Used Second Hand Smoke Exposure: No Advance Directives: Yes Advance Directives on File: Yes Advance Directives Date on File: 10/24/24 service: No Current occupational status: disabled Cognitive needs: Yes (cane, walker) Hearing needs: No Vision needs: Yes (glasses) Physical Exam Exam: Exam: EXAM: Gen: Resting but arousable. Euvolemic. Comfortable no distress Head: Atraumatic Eyes: Anicteric, Normal conjunctiva. ENT: Moist mucosa, no pallor. ? Neck: Supple. Skin: ?No observable rash or bruising on exposed or examined skin Respiratory: Breathing comfortably, No distress.Clear to auscultation bilaterally, symmetric chest expansion, No wheeze, rales, ronchi. Cardiovascular: Regular rate and rhythm. No murmurs or rub. Well perfused periphery, warm extremities. No edema. ? Abdominal: No focal tenderness. Soft, no objective distension. No palpable masses or obvious organomegaly. ?No guarding, no rebound tenderness or other peritoneal findings. : No flank tenderness. Neuro: Alert. Gross movement of all extremities intact. ? Psych: Calm. Cooperative. MSK: No grossly visible deformity. Vital signs: See flowsheet Vital Signs: Vital Signs: Last Vital Signs Temp 97.5 F 09/21/25 20:37 Pulse 65 09/21/25 20:37 Resp 16 09/21/25 20:37 BP 96/62 09/21/25 20:37 Pulse Ox 98 09/21/25 20:37 O2 Del Method Room Air 09/21/25 20:37 BMI result Body Mass Index 22.7 Medical Decision Making Medical Decision Making MDM Narrative: Medical Decision Making: Syncope, transient hypotension. Normotensive monitored for several hours here. Reassuring labs, clinical exam and ECG. Possible vasovagal Preliminary Favored Differential Diagnosis: [ ] among additional considered etiologies Testing Interpreted Independently: ?See below for details Radiology or Lab testing Results Reviewed: ?See below for details Consults: ?See below for details Independent Historians/External Chart Reviews: ?See below for details Social Determinants of Health Impacting MDM/Planning: ?See below for details Lab Data 09/21/25 19:14 09/21/25 19:14 Labs: Lab Results 09/21/25 Range/Units 19:14 WBC 5.6 (4.8-10.8) X10*3/uL RBC 5.00 (4.20-5.50) X10*6/uL Hgb 11.9 L (12.0-16.0) g/dl Hct 39.4 (37.0-47.0) % MCV 78.8 L (80.0-98.0) fL MCH 23.8 L (27.0-33.0) pg MCHC 30.2 L (31.0-35.0) g/dl RDW 14.4 (11.0-16.0) % Plt Count TNP MPV 11.0 (9.4-12.3) fL Immature Gran % (Auto) 0.4 (0.0-0.4) % Neut % (Auto) 64.9 (45-73) % Lymph % (Auto) 26.0 (20-40) % Converse % (Auto) 7.3 (2-11) % Eos % (Auto) 0.9 (0-4) % Baso % (Auto) 0.5 (0-2) % Lymph # (Auto) 1.5 (1.2-4.9) X10*3/uL Converse # (Auto) 0.4 (0.1-1.2) X10*3/uL Eos # (Auto) 0.1 (0.0-0.4) X10*3/uL Baso # (Auto) 0.0 (0.0-0.2) X10*3/uL Abs Immat Gran (auto) 0.02 (0.00-0.03) X10*3/uL Absolute Neuts (auto) 3.6 (2.0-8.3) x10*3/uL Absolute Nucleated RBC 0.000 (0.0-0.012) X10*3/uL Nucleated RBC % (auto) 0.0 (0.0-0.2) /100WBC Smear Tech's Comments VERIFIED Sodium 140 (135-145) mmol/L Potassium 3.8 (3.3-5.1) mmol/L Chloride 106 (96-108) mmol/L Carbon Dioxide 24 (22-29) mmol/L Anion Gap 14 (12-20) BUN 17 H (9-16) mg/dL Creatinine 0.74 (0.5-1.4) mg/dL Estim Creat Clear Calc 62.8 Estimated GFR > 60 Random Glucose 138 H (60-115) mg/dL Calcium 9.4 (8.4-10.2) mg/dL Magnesium 1.7 (1.6-2.6) mg/dL Total Bilirubin 0.2 (0.0-1.0) mg/dL AST 35 H (5-31) U/L ALT 53 H (0-31) U/L Alkaline Phosphatase 104 (39-117) U/L Troponin I High Sens < 2.7 (<3.5-17.0) ng/L Total Protein 7.6 (6.5-8.0) g/dL Albumin 4.1 (3.5-5.0) g/dL Influenza Type A (PCR) NEGATIVE (Negative) Influenza Type B (PCR) NEGATIVE (Negative) RSV RNA Qual (PCR) NEGATIVE (Negative) SARS-CoV-2 RNA (RT-PCR) NEGATIVE (Negative) Discharge Plan Discharge Clinical Impression: Syncope Patient Disposition: Home, Self-Care Instructions: Syncope (DC) Additional Instructions: Patient was monitored for 2 hours with no hypotensive episodes. She had lab work and clinical exam are they were all reassuring. ECG normal. She herself has no complaints Prescriptions: No Action oxybutynin chloride 5 mg tablet extended release 24hr 5 mg PO DAILY Qty: 90 2RF quetiapine 25 mg tablet 25 mg PO BID 90 Days Qty: 180 2RF (DME) Shower Chair Misc See Rx Instructions .Route Qty: 1 0RF Rx Instructions: As directed amlodipine 5 mg tablet 5 mg PO DAILY Qty: 90 1RF mirtazapine 30 mg tablet 30 mg PO BEDTIME 90 Days Qty: 90 2RF omeprazole 20 mg capsule,delayed release(DR/EC) 20 mg PO DAILY 90 Days Qty: 90 2RF sertraline 25 mg tablet 25 mg PO DAILY Qty: 90 1RF hydroxyzine HCl 25 mg tablet 25 mg PO BID Qty: 60 3RF diclofenac sodium 1 % gel 2 g topical QID PRN (Reason: Pain) 30 Days Qty: 100 2RF Rx Instructions: apply to back and knees. tramadol 50 mg tablet 50 mg PO BID PRN (Reason: pain) 7 Days Qty: 14 2RF acetaminophen 325 mg Tablet 325 mg PO QID PRN (Reason: Pain or fever) melatonin 12 mg Tablet,Disintegrating 12 mg PO BEDTIME gabapentin 800 mg tablet 800 mg PO BID PRN (Reason: Pain) (DME) Blood Pressure Cuff Misc See Rx Instructions .ROUTE .MEDSUPPLY Qty: 1 0RF Rx Instructions: Take BP reading daily diphenoxylate-atropine [Lomotil] 2.5-0.025 mg tablet 1 tab PO BEDTIME PRN Print Language: Rwandan
--- NOTE | 2025-09-21 20:50 | PC.NURSE ---
Pts son Jose Guadlaupe would like a call with any updates even if pt goes back to [place] [phone] Plan of care ongoing.
--- NOTE | 2025-09-21 21:20 | PC.NURSE ---
Pt confused, ripped out IV. Pt redirected back into bed. Plan of care ongoing.
--- NOTE | 2025-09-21 21:47 | PC.NURSE ---
Nurse reported called to Leanna at [facility], awaiting transport via ambulance at this time
[2025-09-21 21:48] VITALS: BP 105/62; PULSE 67; RESP 16; TEMP 36.7; O2SAT 96
[2025-09-21 21:49] VITALS: BP 105/62; PULSE 67; RESP 16; TEMP 36.7; O2SAT 96
[2025-09-21 22:00] VITALS: BP 98/56; PULSE 74; RESP 16; O2SAT 93
--- OUTSIDE RECORDS SUMMARY | 2025-09-21 22:25 | XMS_ITS | Patient Health Record ---
Author Organization [facility] Address [address] [facility] [facility] [address] [place] [address] Support Name Relationship Address Phone Brooklyn Waters Guarantor Unknown Irina vailable Reason For Referral No Information Medications Medication SIG (Take, Route, Frequency, Duration) Notes Start Date End Date Status traMADol HCl 50 MG Tablet Oral Active Polyethylene Glycol - Powder 05/30/2014 Active Calcium Carbonate-Vit D-Min 600-400 MG-UNIT Tablet Oral *Reorder from [facility] for eRx and Interaction Alerts* 04/03/2014 Active MiraLax - oral powder for reconstitution - *Reorder from [facility] for eRx and Interaction Alerts* 05/30/2014 Active Ammonium Lactate 12 % Lotion External Active Alendronate Sodium 70 MG Tablet Oral Active Baclofen 10 MG Tablet Oral Active Aricept 5 MG Tablet Oral Active CALCIUM CARBONATE AND VITAMIN D 600 MG-400 INTL UNITS ORAL TABLET 600 mg-400 intl units *Reorder from [facility] for eRx and Interaction Alerts* 04/03/2014 Active Social History Social History Additional Details Category Social Info Options Details Social History Migrated Social History -T obacco: Pt smokes 1 PPD -Alcohol: Pt denies use -Illicit drugs: Pt denies use -Pregnancies: P::5-Exercise: Pt does not -Education: College -Occupation: Retired -Marital Status: Single -Abuse: Pt denies any type of abuse Problems Problem Type SNOMED Code ICD Code Onset Dates Problem Status W/U Status Risk Notes Problem Hyperlipidemia (47847464) Other and unspecified hyperlipidemia (272.4) Active confirmed Problem Generalized anxiety disorder (32918339) Generalized anxiety disorder (300.02) Active confirmed Problem Spinal cord disorder (44376441) Unspecified disease of spinal cord (336.9) Active confirmed Problem Old myocardial infarction (0851503) Old myocardial infarction (412) Active confirmed Problem Cardiomyopathy (26529948) Cardiomyopathy in other diseases classified elsewhere (425.8) Active confirmed Problem Arterial disease (304474221) Unspecified disorders of arteries and arterioles (447.9) Active confirmed Problem Simple chronic bronchitis (49031981) Simple chronic bronchitis (491.0) Active confirmed Problem Thoracic and lumbosacral neuritis (471170228) Thoracic or lumbosacral neuritis or radiculitis, unspecified (724.4) Active confirmed Problem Disorder of bone and articular cartilage (disorder) (545234339) Disorder of bone and cartilage, unspecified (733.90) Active confirmed Problem Atherosclerosis of coronary artery (857523451) Coronary atherosclerosis Of unspecified type of vessel, [place] or graft (414.00) Active confirmed Problem Impaired fasting glucose (549387764) Impaired fasting glucose (790.21) Active confirmed Problem Vitamin D deficiency (99633055) Vitamin D deficiency, unspecified (E55.9) Active confirmed Problem Dementia (44036366) Unspecified dementia without behavioral disturbance (F03.90) Active confirmed Problem Tobacco user (826215942) Nicotine dependence, other tobacco product, uncomplicated (F17.290) Active confirmed Problem Generalized anxiety disorder (09365865) Generalized anxiety disorder (F41.1) Active confirmed Problem Chronic pain syndrom e (926996400) Chronic pain syndrome (G89.4) Active confirmed Problem Spinal cord disorder (74373749) Disease of spinal cord, unspecified (G95.9) Active confirmed Problem Essential hypertension (15179782) Essential (primary) hypertension (I10) Active confirmed Problem Old myocardial infarction (9741019) Old myocardial infarction (I25.2) Active confirmed Problem Cardiomyopathy (09239791) Cardiomyopathy in diseases classified elsewhere (I43) Active confirmed Problem Peripheral vascular disease (324596173) Peripheral vascular disease, unspecified (I73.9) Active confirmed Problem Disorder of arteries and arterioles, unspecified (I77.9) Active confirmed Problem Uncomplicated asthma (disorder) (567777107) Unspecified asthma, uncomplicated (J45.909) Active confirmed Problem Osteoarthritis (395656057) Polyosteoarthritis, unspecified (M15.9) Active confirmed Problem Spinal stenosis in cervical region (92930215) Spinal stenosis, cervical region (M48.02) Active confirmed Problem Lumbar radiculopathy (117148685) Radiculopathy, lumbar region (M54.16) Active confirmed Problem Age-related osteoporosis (231176312) Age-related osteoporosis without current pathological fracture (M81.0) Active confirmed Problem Disorder of bone (43977666) Disorder of bone, unspecified (M89.9) Active confirmed Problem Congenital anomaly o f adrenal gland (33564590) 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) Active confirmed Problem Impaired fasting glucose (087447448) Impaired fasting glucose (R73.01) Active confirmed Problem Dietary management surveillance (163179009) Dietary counseling and surveillance (Z71.3) Active confirmed Problem Counseling (782742809) Counseling, unspecified (Z71.9) Active confirmed Problem Recurrent major depression (08469978) Major depressive disorder, recurrent, unspecified (F33.9) Active confirmed Problem Simple chronic bronchitis (31643790) Simple chronic bronchitis (J41.0) Active confirmed Problem Hyperlipidemia (04297096) Other hyperlipidemia (e78.4) Active confirmed Problem Atherosclerosis of coronary artery without angina pectoris (261174336035548) Athscl heart disease of [place]ahu[place] coronary artery w/o ang pctrs (I25.10) Active confirmed Problem Osteoarthritis (340188984) Osteoarthrosis, unspecified whether generalized or localized, unspecified site (715.90) Active confirmed Problem Peripheral vascular disease (298713813) Unspecified peripheral vascular disease (443.9) Active confirmed Problem Asthma without statu s asthmaticus (33986987) Asthma, unspecified, unspecified status (493.90) Active confirmed Problem Body mass index 20-2 4 - normal (657767965) BODY MASS INDEX BETWEEN 19-24 ADULT (V85.1) Active confirmed Problem Disorder of cartilag e (97027861) Other and unspecified disorder of bone and cartilage (733.9) Active confirmed Problem Episodic opioid dependence (123419833) Opioid type dependence, episodic abuse (304.02) Active confirmed Problem Asthma (332567837) Unspecified a sthma (493.9) Active confirmed Problem Osteochondropathy (11194545) Other disorders of bone and cartilage (733) Active confirmed Problem Opioid dependence (57176877) Opioid type dependence, unspecified abuse (304.00) Active confirmed Problem Osteoarthrosis (128849531) Osteoarthrosis, unspecified whether generalized or localized (715.9) Active confirmed Problem Chronic bronchitis (46195141) Chronic bronchitis (491) Active confirmed Problem Osteoporosis (09926486) Unspecified osteoporosis (733.00) Active confirmed Problem Continuous opioid dependence (253687457) Opioid type dependence, continuous abuse (304.01) Active confirmed Problem Recurrent major depression (94711010) Major depressive disorder, recurrent episode (296.3) Active confirmed Problem Drug dependence (304) Active confirmed Problem Recurrent major depression (04281667) Major depressive disorder, recurrent episode, unspecified (296.30) Active confirmed Problem Chronic ischemic heart disease (775557218) Other forms of chronic ischemic heart disease (414) Active confirmed Problem Malnutrition of mild degree ([place]: 75% to less than 90% of standard weight) (16614805) Malnutrition of mild degree (263.1) Problem resolved confirmed Problem Pure hypercholesterolemia (179832425) Pure hypercholesterolemi a (272.0) Problem resolved confirmed Problem Cellulitis and abscess of finger (624106788) Cellulitis and abscess of unspecified digit (681.9) 2015 Problem resolved confirmed Problem Felon (11289316) Felon (681.01) 2015 Problem resolved confirmed left index finger Problem Underweight (810011871) Underweight (783.22) Problem resolved confirmed Problem Diarrhea (82446742) Diarrhea (787.91) Problem resolved confirmed Problem Memory loss (65763347) Memory loss (780.93) Problem resolved confirmed Problem Cervicalgia (73320898) Cervicalgia (723.1) Problem resolved confirmed Problem Microscopic hematuri a (087958242) Microscopic hematuria (599.72) Problem resolved confirmed Problem Hyperlipidemia (52695567) Hyperlipidemia, unspecified (E78.5) Problem resolved confirmed Problem Carpal tunnel syndrome (79681326) Carpal tunnel syndrome, unspecified upper limb (G56.00) Problem resolved confirmed Problem Non-infective enteritis and colitis (000363833) Noninfective gastroenteritis and colitis, unspecified (K52.9) Problem resolved confirmed Problem Cellulitis of finger of left hand (05647769283072456) Cellulitis of left finger (L03.012) 2015 Problem resolved confirmed left index finger Problem Cellulitis (143559843) Cellulitis, unspecified (L03.90) 2015 Problem resolved confirmed Problem Urticaria (05290561) Urticaria, unspecified (L50.9) 2015 Problem resolved confirmed Problem Neuralgia (55757000) Neuralgia a nd neuritis, unspecified (M79.2) Problem resolved confirmed Problem Amnesia (81714601) Other amnesia (R41.3) Problem resolved confirmed Problem Underweight (546612980) Underweight (R63.6) Problem resolved confirmed Problem Adult health examination (494119450) Encounter for general adult medical examination without abnormal findings (Z00.00) 2018 Problem resolved confirmed Problem BMI less than 20 (818670412) Body mass index (BMI) 19 or less, adult (Z68.1) Problem resolved confirmed Problem Normal body mass index (55126088) Body mass index (BMI) 20.0-20.9, adult (Z68.20) Problem resolved confirmed Problem Normal body mass index (82477826) Body mass index (BMI) 21.0-21.9, adult (Z68.21) Problem resolved confirmed Problem Malnutrition of mild degree (Odell: 75% to less than 90% of standard weight) (43428919) Mild protein-calorie malnutrition (E44.1) Problem resolved confirmed Problem Opioid dependence (89927282) Opioid dependence, uncomplicated (F11.20) Problem resolved confirmed Problem Counseling (807349894) Other specified counseling (V65.49) Problem resolved confirmed Problem General examination of patient (434378442) Routine general medical examination at health care facility (V70.0) 2018 Problem resolved confirmed Problem Chronic obstructive asthma co-occurrent with acute exacerbation of asthma (disorder) (73624666590429541) Chronic Obstructive Asthma (493.2) Problem resolved confirmed Problem Urticaria (078125371) UNSPECIFIE D URTICARIA (708.9) 2015 Problem resolved confirmed Problem Disorder of lipid metabolism (703208151) DISORDERS OF LIPOID METABOLISM (272) Problem resolved confirmed Problem Body mass index less than 20 (825241411) BODY MASS INDEX LESS THAN 19 ADULT (V85.0) Problem resolved confirmed Problem Osteoporosis (02935068) Other osteoporosis (733.09) Problem resolved confirmed Problem Chronic asthmatic bronchitis (932053402) Chronic obstructive asthma, unspecified (493.20) Problem resolved confirmed Problem Other forms of asthma (493.8) Problem resolved confirmed Problem Cervical disc disorder (557807562) Other and unspecified disc disorder of cervical region (722.91) Problem resolved confirmed Problem Multiple joint pain (92393399) Pain in joint, multiple sites (719.49) Problem resolved confirmed Plan Of Treatment No Information Insurance Providers Payer Name Payer Address Payer Phone Subscriber Number Group Number Insured Name Patient Relationship to Insured Coverage Start Date Coverage End Date [employer] P[employer] [address] [address] [place] [address] [id number] Kwasi Hernandezgo[place] no Self - patient is the insured 9 Medicaid [address] [place] [address] [phone] [id number] Brooklyn Carlson Self - patient is the insured 9 [facility] [address] [place] [address] [id number] Brooklyn Carlson Self - patient is the insured 5 Medicare Part B [address] [address] [place] [address] [id number] Brooklyn Carlson Self - patient is the insured 7 [facility] [address] [place] [address] [id number] Brooklyn Carlson Self - patient is the insured 5 Medical (General) History Surgical History Surgery Date(Month/Year) -Cholecystectomy:-Total Hyst erectomy:-3 Right shoulder Sx:-cervical surgery: 2010 -lumbar surgery: 2010
--- OUTSIDE RECORDS SUMMARY | 2025-09-21 22:25 | XMS_ITS | Data Portability ---
Author Organization [facility] [employer] [facility], Main Office Address [address] [place] [address] Care Team Providers Care Mobile Application Tester Name Role Phone MAT CASAREZ - 2ND [...] Time Closed fracture of right tibial plateau [id number] 9105 Active 2024 SHAHEEN VALLE NP [address] [facility], [place], [address], [facility] [employer] 5 14:01:06 Dementia 11008061 Active 2024 SHAHEEN VALLE NP [address] [facility], [place], [address], [facility] [employer] 5 14:19:29 Onychomycos is 204577286 Active 2024 SHAHEEN VALLE NP [address] [facility], [place], [address], [facility] [employer] 5 14:19:41 Abdominal aortic aneurysm 250597896 Active 2024 SHAHEEN VALLE NP [address] [facility], [place], [address], [facility] [employer] 5 14:20:06 Osteoarthri tis 870678154 Active 2024 R knee SHAHEEN VALLE NP [address] [facility], [place], [address], [facility] [employer] [facility] 5 14:20:19 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 2024 SHAHEEN VALLE NP [address] [facility], [place], [address], [facility] [employer] [facility] 5 14:20:30 Hypertensiv e disorder 86251049 Active 2024 SHAHEEN VALLE NP [address] [facility], [place], [address], [facility] [employer] [facility] 5 14:20:36 Depressive disorder 90405793 Active 2024 SHAHEEN VALLE NP [address] [facility], [place], [address], [facility] [employer] [facility] 5 14:20:44 Overactive urinary bladder 491545755 Active 2024 SHAHEEN VALLE NP [address] [facility], [place], [address], [facility] [employer] [facility] 5 14:20:55 Gastroesoph ageal reflux disease without esophagitis 357117392 Active 2024 SHAHEEN VALLE NP [address] [facility], [place], [address], [facility] [employer] [facility] 5 14:29:31 Primary insomnia 4670168 Active 2024 Roger Tellez MD [address] [facility] [facility] [address], [place], [address], [facility] [employer] [facility] 5 11:22:16 Problem Notes None recorded. Medical Equipment None Reported. Allergies Allergen ID Allergen Name Allergen Category Reaction Reaction Severity Criticality Documentation Date Start Date Code Code System Note Provider Name and Address Organization Details Recorded Time 90545 yellow dye medicatio n Not available Not available Not available 10/26/2024 #5, teri lima s SHAHEEN VALLE NP [address] [facility], [place], [address], [email or web address] 5 13:38:46 03304 ibuprofen medicatio n Not available Not available Not available 10/26/2024 5640 RxNorm teri king ing SHAHEEN VALLE NP [address] [facility], [place], [address], [email or web address] 5 13:39:01 81838 orange (food color) medicatio n Not available Not available Not available 10/26/2024 #8, teri benoit close s SHAHEEN VALLE NP [address] [facility], [place], [address], [email or web address] 5 13:40:10 Medications Not known to be on any medication Vitals Date Recorded Heart rate Respiratory rate Body temperature Oxygen saturation Systolic And Diastolic Provider Name and Address Organization Details Last Updated DateTime 5 78 /min 18 /min 97.6 [degF] 97 % 127/77 mm[Hg] SHAHEEN VALLE NP [address] [facility], [place], [address], [email or web address] 5 12:52:41 Date Recorded Body weight Heart rate Respiratory rate Body temperature Oxygen saturation Systolic And Diastolic Provider Name and Address Organization Details Last Updated DateTime 5 37665.1 6 g 78 /min 18 /min 97.6 [degF] 97 % 127/77 mm[Hg] Ella Larose NP [address] [facility], [place], [address], [email or web address] 5 10:38:35 Date Recorded Heart rate Respiratory rate Body temperature Oxygen saturation Systolic And Diastolic Provider Name and Address Organization Details Last Updated DateTime 5 68 /min 18 /min 97.2 [degF] 97 % 120/62 mm[Hg] SHAHEEN VALLE NP [address] [facility], [place], [address], [facility] 5 12:05:40 Date Recorded Body weight Heart rate Respiratory rate Body temperature Oxygen saturation Systolic And Diastolic Provider Name and Address Organization Details Last Updated DateTime 5 77139.9 4 g 70 /min 18 /min 97.2 [degF] 97 % 128/72 mm[Hg] Ella Larose NP [address] [facility], [place], [address], [facility] 5 15:35:35 Date Recorded Body weight Heart rate Respiratory rate Body temperature Oxygen saturation Systolic And Diastolic Provider Name and Address Organization Details Last Updated DateTime 5 98930.9 4 g 70 /min 18 /min 97.2 [degF] 97 % 128/72 mm[Hg] Ella Larose NP [address] [facility], [place], [address], [employer] 5 21:34:25 Social History Question Answer Notes LastModified by Organizat ion Details LastModified Time Tobacco Smoking Status Former Smoker pt. unable to provide details SHAHEEN VALLE NP [address] [facility], [place], [address], [facility] 10/26/2024 13:41:46 What Is Your Code Status? Full Code [email or web address] Information not available 10/26/2024 Do You Have A Medical Power Of Lockstitch Shoulder Joiner? Yes HAs HCP - Invoke [email or web address] Information not available 10/26/2024 What Was The Date Of Your Most Recent Tobacco Screening? 10/26/2024 [email or web address] Information not available 10/26/2024 Do You Have An Out Of Hospital DNR? No Information not available 10/26/2024 Has Tobacco Cessation Counseling Been Provided? No [email or web address] Information not available 10/26/2024 Sex: Unknown Functional Status Question Answer Note LastModified by Organizat ion Details LastModified Time Do you use any illicit or recreational drugs? No [email or web address] Information not available 10/26/2024 Do you or have you ever used any other forms of tobacco or nicotine? No [email or web address] Information not available 10/26/2024 What is your level of alcohol consumption? None unknown [email or web address] Information not available 10/26/2024 Mental Status None recorded. Family History Nothing Reported Notes:N/C Medical History No medical history recorded. Gynecological HistoryNo gynecological history recorded. Obstetrics History GPAL:G 0 P 0 0 0 0 Immunizations Vaccine Type Date Status Note Provider Nam e and Address Organization Details Recorded Time Tdap 0 completed Ildefonso bell, [employer] 10/27/2024 16:14:18 Td(adult) unspecified formulation 0 completed Ildefonso Dickerson [facility], [facility] 10/27/2024 16:14:30 pneumococcal polysaccharide PPV23 0 completed Ildefonso Dickerson [facility] 10/27/2024 16:14:43 influenza, unspecified formulation 0 completed [facility] Jayla [facility] 10/27/2024 16:14:54 SARS-COV-2 (COVID-19) vaccine, UNSPECIFIED 1 completed Ildefonso Dickerson [facility] 10/27/2024 16:15:18 SARS-COV-2 (COVID-19) vaccine, UNSPECIFIED 1 completed Ildefonso Dickerson [facility] 10/27/2024 16:15:24 Past Encounters Encounter ID Performer Location Encounter Start Date Encounter Closed Date Diagnosis/Indication Diagnosis SNOMED-CT Code Diagnosis ICD10 Code Diagnosis IMO Codes Diagnosis Note [id number] SHAHEEN VALLE NP [address] [address] 10/26/2024 13:45:29 10/27/2024 09:59:24 Closed fracture of right tibial plateau [id number] 7391628 S82.144D s/p fall at home.Right tibial plateau fracture confirmed on x ray and CTPlaced im immobilize r, made non weight bearing.Ne eds C Ortho follow upPT OT eval and tx.Goal is to return home.Kay nue sched. and prn APAP for pain as well as ultram 50 mg bid prn.Monito r pain, VS, labs, CSM for changeAdju st meds prnUpdate Ortho with concerns Dementia [id number] F03.C3 Severe, unable to converse appropriat angela. Word salad, unable to focus on task at hand.No dx. listed in PMH on ER paperwork, noted in text once.Orien carolin x 1 only.BIMS 0/15Contin ue home meds:seroq uel 25 mg bidhydroxy zine 25 mg bidsertral ine 25 mg qdmelatoni n 10 mg q HSremeron 30 mg q hsInvoke HCPPsych eval prn Depressive disorder 5293 9007 F32.A ?On zoloft 25 mg qd, remeron 30 mg qd - continueMo nitor mood, behaviorsP sych eval prn Post-yariel ectomy syndrome 33586320 M96.1 APAP bid and prnDiclofe nac to back and knees qid prnGabapen tin 800 mg bid prnultram 50 mg bid prn Hypertensive disorder 38 326813 I10 Continue norvasc 5 mg qdMonitor VS and need to adjust med prn. Overactive urinary bladder 424078412 N32.81 ?Continue oxybutinin 5 mg qd Gastroesop hageal reflux disease without esophagitis 175744885 K21.9 ?On prilosec 20 mg qd - continueMe ntion in ER paperwork of already scheduled GI appt. coinciding with stay in ER. Son wanted to take her to the appointmen t from the ER because she waited 9 months to get this appointmen t. Unclear what the appt. was for, but will need to reschedule as outpt. [id number] [facility] [address] 10/27/2024 09:44:18 10/28/2024 10:30:52 Closed fracture of right tibial plateau [id number] 8860241 S82.144D see HPIfractur e lateral tibial plateau and question avulsion fx to baseline of ACLRecomme nded NWB wtih immobilize r placed to f/u with orthofollo w ortho recs and update with concernsPT OT eval and treatmonit or pain control Dementia 89668360 F03.C3 appears with baseline dementiawi ll request prior PCP notesinvok e HCPcontinu e supportive caremonito r need for increased support in community vs need to transition to LTCmonitor for behaviors on seroquelps ych to eval Depressive disorder 9679 2867 F33.8 probable underlying depression maintained on zoloft and remeronpsy ch eval as above Post-yariel ectomy syndrome 35323243 M96.1 maintained ongabapent in 800 mg bid prnultram 50 mg bid prnmonitor utilizatio n and need to schedule Hypertensive disorder 38 880099 I10 norvasc 5 mg qdmonitor bp and need to titrate Overactive urinary bladder 210513469 N32.81 oxybutynin 5 mg qdmonitor for effecturol ogy eval prn Unsteady when walking 22 696724 R26.89 recurrent falls prior currently NWBtherapy as above Abdominal aortic aneurysm 711716881 I71.43 carrying dx added to PMHwill request prior notes [id number] SHAHEEN VALLE NP [facility] [address] [place] [address] 11/02/2024 11:38:13 11/04/2024 14:34:17 Closed fracture of right tibial plateau 2742869899 6946429 S82.144D s/p fall at home.Right tibial plateau fracture confirmed on x ray and CTPlaced im immobilize r, made non weight bearing.Ne eds [facility] Ortho follow upPT OT eval and tx. to continue.G oal is to return home.Kay nue sched. and prn APAP for pain as well as ultram 50 mg bid prn.Monito r pain, VS, labs, CSM for changeAdju st meds prnUpdate Ortho with concerns Dementia 45581859 F03.C3 Severe, unable to converse appropriat angela. Word salad, unable to focus on task at hand.No dx. listed in PMH on ER paperwork, noted in text once.Gaurav coe x 1 only.BIMS 0/15Contin ue home meds:seroq uel 25 mg bidhydroxy zine 25 mg bidsertral ine 25 mg qdmelatoni n 10 mg q HSremeron 30 mg q hsInvoke HCPPsych eval prn Depressive disorder 7118 9007 F32.A ?On zoloft 25 mg qd, remeron 30 mg qd - continueMo nitor mood, behaviorsP sych eval prn Post-yariel ectomy syndrome 28610297 M96.1 APAP bid and prnDiclofe nac to back and knees qid prnGabapen tin 800 mg bid prnultram 50 mg bid prn Hypertensive disorder 38 316214 I10 Continue norvasc 5 mg qdMonitor VS and need to adjust med prn. Overactive urinary bladder 875088200 N32.81 ?Continue oxybutinin 5 mg qd Gastroesop hageal reflux disease without esophagitis 595213339 K21.9 ?On prilosec 20 mg qd - continueMe ntion in ER paperwork of already scheduled GI appt. coinciding with stay in ER. Son wanted to take her to the appointmen t from the ER because she waited 9 months to get this appointmen t. Unclear what the appt. was for, but will need to reschedule as outpt. [id number] [facility] [address] [place] [address] 11/07/2024 08:58:40 11/09/2024 10:45:50 Closed fracture of right tibial plateau 5677003048 2779529 S82.144D s/p fall at home with transferri ng.She followed up with ortho on 11/03/24 with new rec:right tibial plateau NWB with brace for transferso lesa to perform rom of kneeok to exercise quadfu 6 weeks on 12/14/24 @ 945 am with cassandra consultant as she is not able to converse [...] st meds prnUpdate Ortho with concerns Dementia 55363808 F03.C3 Severe, unable to converse appropriat angela. Word salad, unable to focus on task at hand.No dx. listed in PMH on ER paperwork, noted in text once.Orien carolin x 1 only.BIMS 0/15Contin ue:seroque l 25 mg bidhydroxy zine 25 mg bidsertral ine 25 mg qdmelatoni n 10 mg q HSremeron 30 mg q hsInvoke HCPPsych eval prn Depressive disorder 3516 8287 F32.A zoloft 25 mg qdremeron 30 mg qdMonitor mood, behaviorsP sych eval prn Post-yariel ectomy syndrome 04195250 M96.1 APAP bid and prnDiclofe nac to back and knees qid prnGabapen tin 800 mg bid prnultram 50 mg bid prn Hypertensive disorder 38 613891 I10 Continue norvasc 5 mg qdMonitor VS and need to adjust med prn. Gastroesop hageal reflux disease without esophagitis 591289287 K21.9 cont prilosec 20 mg qd ?had scheduled GI appt.but missed it due ot ERreschedu le GI as outpt. Asthenia 14995883 R53.1 continue PT OT heremonito r [id number] SHAHEEN VALLE, KELLEY [facility] [address] [place] [address] 11/16/2024 13:55:26 11/18/2024 09:50:50 Closed fracture of right tibial plateau 0987808669 9577990 S82.144D s/p fall at home.Right tibial plateau [...] Ortho with concernsNe xt appt. 12/14 Dementia 08842153 F03.C3 Severe, unable to converse appropriat angela. Word salad, unable to focus on task at hand.No dx. listed in PMH on ER paperwork, noted in text once.Orien carolin x 1 only.BIMS 0/15Contin ue home meds:seroq uel 25 mg bidhydroxy zine 25 mg bidsertral ine 25 mg qdmelatoni n 10 mg q HSremeron 30 mg q hsInvoke HCPPsych eval prn Depressive disorder 3514 4935 F32.A Continue zoloft 25 mg qd, remeron 30 mg qdMonitor mood, behaviorsP sych eval prn Post-yariel ectomy syndrome 33795294 M96.1 Continue:A PAP bid and prnDiclofe nac to back and knees qid prnGabapen tin 800 mg bid prnultram 50 mg bid prn Hypertensive disorder 38 345597 I10 VSSContinu e norvasc 5 mg qdMonitor VS and need to adjust med prn. Overactive urinary bladder 205279895 N32.81 Continue oxybutinin 5 mg qdMonitor sx. Gastroesop hageal reflux disease without esophagitis 228616303 K21.9 Continue prilosec 20 mg qd.Mention in ER paperwork of already scheduled GI appt. coinciding with stay in ER. Son wanted to take her to the appointmen t from the ER because she waited 9 months to get this appointmen t. Unclear what the appt. was for, but will need to reschedule as outpt. [id number] Ella Larose NP [facility] [address] 11/24/2024 11:42:30 11/25/2024 13:50:18 Closed fracture of right tibial plateau 6790625214 4692857 S82.144D s/p fall at home here for [...] concernsNe xt appt. 12/14 with ortho Dementia 82908312 F03.C3 Severe, unable to converse appropriat angela.Spanis h speakingWo rd salad, unable to focus on task at hand.No dx. listed in PMH on ER paperwork, noted in text once.Gaurav coe x 1 only.BIMS 0 on admits invokedCon tinue:sero quel 25 mg bidhydroxy zine 25 mg bidsertral ine 25 mg qdmelatoni n 10 mg q HSremeron 30 mg q hsPsych eval prn Depressive disorder 0438 7486 F32.A stableCont inuezoloft 25 mg qdremeron 30 mg qdMonitor mood, behaviorsP sych eval prn Post-yariel ectomy syndrome 04204836 M96.1 stableCont inue:APAP bid and prnDiclofe nac to back and knees qid prnGabapen tin 800 mg bid prnultram 50 mg bid prn Hypertensive disorder 38 562640 I10 VSSContinu enorvasc 5 mg qdMonitor VS and need to adjust med prn. Overactive urinary bladder 785991415 N32.81 Continueox ybutinin 5 mg qdMonitor sx. [id number] Ella Larose NP [address] [place] [address] 12/02/2024 08:19:51 12/05/2024 10:21:42 Dementia 85335754 F03.C3 Severe, unable to converse appropriat angela.Spanis [...] Closed fra cture of right tibial plateau 4341667519 2338835 S82.144D s/p fall at home here for rehab and therapyRig ht tibial plateau fracture confirmed on x ray and CTPlaced im immobilize r, made non weight bearing. [facility] Ortho follow up on 11/03, remainsNWB .OK to transfer with brace, OK for knee ROM and quad exercises. PT OT eval and tx. to continue with therapyGoa l is to return home.Kay nuesched. and prn APAP for painultram 50 mg bid prn.Monito r pain, VS, labs, CSM for changeAdju st meds prnUpdate Ortho with concernsNe xt appt. 12/14 with ortho Depressive disorder 4542 5911 F32.A stableCont inuezoloft 25 mg qdremeron 30 mg qdMonitor mood, behaviorsP sych eval prn Post-yariel ectomy syndrome 91806193 M96.1 stableCont inue:APAP bid and prnDiclofe nac to back and knees qid prnGabapen tin 800 mg bid prnultram 50 mg bid prn Hypertensive disorder 38 058839 I10 VSSContinu enorvasc 5 mg qdMonitor VS and need to adjust med prn. Overactive urinary bladder 254427026 N32.81 Continueox ybutinin 5 mg qdMonitor sx. [id number] Ella Larose NP [facility] [address] 12/14/2024 12:23:17 12/15/2024 12:52:53 Closed fracture of right tibial plateau 9771527292 0241306 S82.144D s/p fall at home here for rehab and therapyRig ht tibial plateau fracture confirmed on x ray and CT Ortho on 12/14/24 today. Recommenda tion is WBAT with walker, rom, gait training and fu with special needs caregiver in 6 weeks with cassandra consultant. Goal is to return home on thursdayCont inuesched. and prn APAP for painultram 50 mg prn.Adjust meds prnUpdate Ortho with concernsNe xt appt. in 6 weeks with caregiver for fu Dementia 43813331 F03.C3 Severe, unable to converse appropriat angela.Spanis h speakingOr iented x 1 only. nonsensica lBIMS 0/15 on admits invokedCon tinue:sero quel 25 mg bidhydroxy zine 25 mg bidsertral ine 25 mg qdmelatoni n 10 mg q HSremeron 30 mg q hsPsych eval prn [id number] Ella Larose NP [facility] [address] 12/21/2024 12:52:12 12/22/2024 16:18:37 Closed fracture of right tibial plateau 3221408239 3478632 S82.144D s/p fall at home here for rehab and therapyRig ht tibial plateau fracture confirmed on x ray and CT Ortho on 12/14/24 Rec:WBAT with walker, rom, gait training and fu with special needs caregiver in 6 weeks with cassandra consultant. Goal is to return home on soon, todayConti nuesched. and prn APAP for pain3/5 ultram 50 mg prn., has not needed lately will dcAdjust meds prnUpdate Ortho with concernsNe xt appt. in 6 weeks with caregiver for fu Dementia 97378298 F03.C3 Severe, unable to converse appropriat angela.Spanis h speakingOr iented x 1 only. nonsensica lBIMS 0/15 on admit invokedCon tinue:sero quel 25 mg bidhydroxy zine 25 mg bidsertral ine 25 mg qdmelatoni n 10 mg q HSremeron 30 mg q hsPsych eval prn [id number] Roger Tellez MD [facility] [address] 12/31/2024 11:16:13 01/02/2025 14:11:21 Unsteady when walking 90010340 R26.89 see HPIremains fall risk due to dementia and impulsive behaviorsm onitor fall risk Dementia 97602392 F03.C3 baseline dementiaHC P invokedcon tinue supportive caremost likely transition to LTCmonitor for behaviorsp sych eval prn Hypertensive disorder 38 503247 I10 norvasc 5 mg qdmonitor bp and need to titrate Primary insomnia 9409411 F51.01 melatonin 10 mg qhsmonitor for effect [id number] Ella Larose NP [facility] [address] [address] 01/23/2025 12:26:29 01/30/2025 11:35:53 Unsteady when walking 33902197 R26.89 see HPIremains fall risk due to dementia and impulsive behaviorsm onitor fall risk Dementia 77645783 F03.C3 baseline severe dementiaHC P invokedcon tinue supportive caremost likely transition to LTC, unclear if son will be able to care for hermonitor for behaviorsp sych eval prn Hypertensive disorder 38 299707 I10 stablenorv asc 5 mg qdmonitor bp and need to titrate Primary insomnia 7014220 F51.01 stablemela tonin 10 mg qhsmonitor for effect Closed fra cture of right tibial plateau 4604446945 4335904 S82.144D resolveds/ p fall at home here for rehab and therapyRig ht tibial plateau fracture confirmed on x ray and CT Ortho on 12/14/24 Rec:WBAT with walker, rom, gait training and fu with special needs caregiver in 6 weeks with cassandra consultant. Goal is to return home ?Continue will dc scheduled tylAdjust meds prnUpdate Ortho with concernsNe xt appt. in 6 weeks with caregiver for fu [id number] Ella Larose NP [facility] [address] [address] 02/17/2025 14:28:01 02/21/2025 16:20:33 Acute COVID-19 7826170226 U07.8 [id number] tested positive for covid 19 on solati on per facility protocolzo chelle davis, robitussin prnencoura ge po fluidsmoni tor [id number] Ella Larose NP [facility] [address] [address] 02/20/2025 13:35:20 02/22/2025 14:30:54 Acute COVID-19 5347622973 U07.9 [id number] tested positive for covid 19 on 02/17, asymptomat icisolatio n per facility protocolzo chelle davis, robitussin prnencoura ge po fluidsmoni tor Dementia 19894529 F03.C3 baseline severe dementia, now with agitation likely related to difficulty with isolation precaution s from covid 5 trazodone 25 mg po q 6 hrs prn agitation x 14 daysHCP invokedcon tinue supportive caremost likely transition to LTC, unclear if son will be able to care for hermonitor for behaviorsp sych eval prn [id number] Ella Larose NP [facility] [address] [address] 03/03/2025 09:15:30 03/06/2025 13:44:02 Dementia 77731777 F03.C3 baseline severe dementia restart trazodone 25 mg po q 6 hrs prn agitation x 14 days03/03 dc hydroxyzin e prnHCP invokedcon tinue supportive caremost likely transition to LTC, unclear if son will be able to care for hermonitor for behaviorsp sych eval prn [id number] Ella Larose NP [facility] [address] 03/16/2025 14:35:24 03/21/2025 15:54:19 Dementia 43773678 F03.C3 baseline severe dementiaco ntseroquel 25 mg po qdtrazodon e 25 mg po q 6 hrs prn agitation x 14 days, reeval on oing well off hydroxyzin eHCP invokedcon tinue supportive caremost likely transition to LTC, unclear if son will be able to care for hermonitor for behaviorsp sych eval prn Unsteady when walking 22 163690 R26.89 see HPI, she often is getting up and walking from wheelchair remains fall risk due to dementia and impulsive behaviorsm onitor fall risk Hypertensive disorder 38 717454 I10 stablenorv asc 5 mg qdmonitor bp and need to titrate Primary insomnia 8056722 F51.01 stablemela tonin 10 mg qhsmonitor for effect [id number] SHAHEEN VALLE NP [facility] [address] [address] 03/21/2025 12:52:04 03/28/2025 09:55:47 Dementia 37038739 F03.C3 Increased agitation per staff, zo. in the afternoon/ evening, more difficult to re direct.See n by Psych 03/20, recommende d to increase seroquel to 37.5 mg bid. Discussed with staff, in agreement. Continue:s ertraline 25 mg qdmelatoni n 10 mg q HSremeron 30 mg q hsMonitor mood, behaviorsU pdate Psych with concerns HCP invokedBIM S [id number] Ella Larose, KELLEY [facility] [address] [address] 03/23/2025 10:36:21 03/28/2025 10:32:52 Dementia 86684166 F03.C3 Increased agitation per staff, zo. in the afternoon/ evening, more difficult to re direct.See n by Psych 03/20, recommende d to increase seroquel to 37.5 mg bid. Discussed with staff, in agreement. Continue:i ncrease sertraline 25 mg qd to 37.5 mg po bid per requestmel atonin 10 mg q HSremeron 30 mg q hsMonitor mood, behaviorsU pdate Psych with concerns HCP invokedBIM S 0/15 Closed fra cture of right tibial plateau 6164715862 4870005 S82.144D resolveds/ p fall at home here for rehab and therapyRig ht tibial plateau fracture confirmed on x ray and CT Ortho on 12/14/24 Rec:WBAT with walker, rom, gait training and fu with special needs caregiver in 6 weeks with cassandra consultant. Goal is to return home ?ContinueA djust meds prnUpdate Ortho with concernsNe xt appt. in 6 weeks with caregiver for fu Depressive disorder [id number] F32.A stableCont inuezoloft 25 mg qdremeron 30 mg qd/ seroquel increased to 37.5 mg po bidMonitor mood, behaviorsP sych eval prn [id number] SHAHEEN VALLE NP [facility] [address] [address] 05/02/2025 12:05:08 05/03/2025 14:44:12 Dementia [id number] F03.C3 Followed by Psych for med mgmt. of agitation and behaviors. Currently on:seroque l to 37.5 mg bidsertral ine 25 mg qdmelatoni n 10 mg q hsremeron 30 mg q hs Due for prn trazodone 14 day reassessme nt - per MAR it is being utilized, and per staff with good effect. Will continue another 14 days, monitoring use and effect. Monitor mood, behaviorsU pdate Psych with concerns HCP invokedBIM S 0 [id number] Ella Larose NP [facility] [address] [address] 05/05/2025 08:21:37 05/11/2025 13:25:44 Dementia [id number] F03.C3 Cont:seroq uel to 37.5 mg bidsertral ine 25 mg qdmelatoni n 10 mg q hsremeron 30 mg q hsprn trazodone x14 days, monitoring use and effect, due for reeval on 05/16Monito r mood, behaviorsU pdate Psych with concerns HCP invokedBIM S 0/15 Depressive disorder 3548 9007 F32.A stableCont inuezoloft 25 mg qdremeron 30 mg qdseroquel i 37.5 mg po bidtrazodo ne prnMonitor mood, behaviorsP sych eval prn Unsteady when walking 22 [id number] R26.89 pt is getting up and walking from wheelchair remains fall risk due to dementia and impulsive behaviorsm onitor fall risk Hypertensive disorder 38 [id number] I10 stablenorv asc 5 mg qdmonitor bp and need to titrate Primary insomnia [id number] F51.01 stablemela tonin 10 mg qhsmonitor for effect [id number] Ella Larose NP [address] [address] 05/11/2025 11:14:39 05/16/2025 09:54:29 Dementia [id number] F03.C3 Cont:seroq uel to 37.5 mg bid7/24 dc sertraline 25 mg qdmelatoni n 10 mg q hsremeron 30 mg q hs7/24 increase prn trazodone 25 mg po prn q55Icvjabj mood, behaviorsU pdate Psych with concerns HCP invokedBIM S 0/15 Depressive disorder 3548 9007 F32.A stableCont inuedc zoloft 25 mg qdremeron 30 mg qdseroquel 37.5 mg po bidtrazodo ne prn q 12Monitor mood, behaviorsP sych eval prn Unsteady when walking 22 539672 R26.89 pt is getting up and walking from wheelchair remains fall risk due to dementia and impulsive behaviorsm onitor fall risk Health Concerns Section Related Observation LastModified by Organization Detai ls LastModified Time None Recorded Concern Status LastModified by Organization Details LastModified Time None Recorded Advance Directives Directive None Recorded Payers Insurance Date Sequence Insurance Name Policy Number Policy Sheets Covered Member ID Sheets Member ID Guarantor Name 05/02/2025 1 [place]: [employer] [place] Vivar ur [id number] Brooklyn Banks 11/29/[address] [facility] - DOS ON OR AFTER 2023 - MEDICARE [place]VANTAGE [place] (MED[place]ARE REPLACEMENT/AD VANTAGE - PPO) Brooklyn Banks [id number] Brooklyn Bakns 05/02/2025 2 [place] [facility] Brooklyn Banks [id number] Brooklyn Banks Notes Date Note Type Note Provider Name and Address Organization Details Recorded Time 03/21/2025 text/html Brooklyn is seen today for an acute visit. Seen by Psych Provider yesterday, and due to increased agitation recommended to increase seroquel to 37.5 mg bid and check EKG (QTC interval). Case discussed with staff. who report intermittent episodes of agitation, especially in the evening, getting more difficult to redirect. Upon exam, Brooklyn is up in a chair, finishing lunch. Very chatty (nonsensical/word salad), animated, pleasantly confused. SHAHEEN VALLE, KELLEY [address] [place] [address], [address], [place], [address], [facility] [employer] 03/21/2025 13:02:16 03/23/2025 text/html Pt is seen for an acute rounding visit today. PMH: onychomycosis, aneurysm of infrarenal abdominal aorta, R knee OA, postlaminectomy syndrome, HTN, depression, dementia, OAB Brooklyn is a 74 yo lady, admitted to [facility] 10/25/24 from [facility] [place] to a [place] with right knee pain here for rehab, now LTC. Patient seen and evaluated by personnel research psychologist and rec: for continued frequent agitation/anxiety. Often unable to be redirected. Attempting unsafe self transfers. Recently hydroxyzine was discontinued and trazodone started. Prn trazodone used without effect. We will recommend increase of seroquel at this time. Monitor for effect/tolerance. Utilize behavioral redirection and re approach as needed. EKG done on 03/22 and shows SR normal EKG. QT 360. Will agree with above changes as recommended. She recently saw ortho and she is now weight bearing as tolerated. On exam, Brooklyn is motoring around the unit in a wheelchair pleasantly confused throughout the day requested coffee and snacks throughout day. She is often going into other residents rooms. She denies any pain or concerns. NAD. CASTILLO high fall riskBIMS score 0/15Assumed full code, no MOLSTHCP invoked Ella Larose, KELLEY [address] [facility], [place], [address], [email or web address] [facility] 03/23/2025 10:50:40 05/02/2025 text/html Brooklyn is seen today for an acute visit. Staff noting she is due to re-evaluation of prn trazodone x 14 days. Per MAR, is being used often, and per staff it is working well and helps with behaviors and agitation. Asking if it could be continued for another 14 days. Upon exam, Brooklyn is up in her w/c, self propels in the halls, confused but currently cooperative with care, no behaviors. PMH: onychomycosis, aneurysm of infrarenal abdominal aorta, R knee OA, postlaminectomy syndrome, HTN, depression, dementia, OAB ANNA high fall riskBIMS score 0/15Assumed full code, no MOLSTHCP invoked SHAHEEN VALLE NP [address] [facility], [address], [place], [address], [email or web address] [facility] 05/02/2025 12:13:25 05/05/2025 text/html Pt is seen for an routine rounding visit today. PMH: onychomycosis, aneurysm of infrarenal abdominal aorta, R knee OA, postlaminectomy syndrome, HTN, depression, dementia, OAB She is a 74 yo lady, admitted to [facility] 10/25/24 from [facility] due to a fall with right knee pain here for rehab, now LTC, as family are unable to care for her. Recently, Patient seen and evaluated by personnel research psychologist and rec: for continued frequent agitation/anxiety. Often unable to be redirected. Attempting unsafe self transfers. Recently hydroxyzine was discontinued and trazodone and increased seroquel started.EKG done on 03/22 and shows SR normal EKG. QT 360. Will agree with above changes as recommended. On exam, pt is motoring around the unit in a wheelchair pleasantly confused. She denies any concerns. Remains eating and drinking well. She is often going into other residents rooms and staff remind her to stay in the common areas. NAD. Weight stable at 113 lbs. Overall, remains with mod/sev dementia on slow decline. ANNA high fall riskBIMS score 0/15Assumed full code, no MOLSTHCP invoked Ella Larose NP [address] [facility], [place], [address], [facility] [employer] 05/05/2025 15:52:11 05/11/2025 text/html Pt is seen for an acute visit. PMH: onychomycosis, aneurysm of infrarenal abdominal aorta, R knee OA, postlaminectomy syndrome, HTN, depression, dementia, OAB Brooklyn is a 74 yo lady, admitted to [facility] 10/25/24 from [facility] due to a fall with right knee pain here for rehab, now LTC, as family are unable to care for her seen for behaviors. patient accounting representative and rec: for continued frequent agitation/anxiety. Often unable to be redirected. Attempting unsafe self transfers, often impulsive. DC sertraline 25mg po qd - monitor for changes to mood/behaviors. Increase trazodone from 25mg prn q12hrs to 50mgp po q12hrs for anxiety/agitation. Monitor for dizziness, excessive sedation, and increased falls etc. On exam, She is in w/c smiling in NAD. She continues to wander and with unsafe behaviors. ANNA high fall riskBIMS score 0/15Assumed full code, no MOLSTHCP invoked Ella Larose NP [address] [facility], [address], [place], [address], [facility] [employer] [facility] 05/11/2025 21:46:17 OBGyn Episode No OBEpisode recorded.
--- OUTSIDE RECORDS SUMMARY | 2025-09-21 22:25 | XMS_ITS | Patient Health Record ---
Author Organization [facility] Address [address] [facility] [address] [place] [address] Support Name Relationship Address Phone Brooklyn Villalpando Guarantor Unknown Reason For Referral No Information Plan Of Treatment No Information
--- NOTE | 2025-09-21 22:45 | PC.NURSE ---
Pts son called, no answer.
[2025-09-21 22:47] VITALS: BP 98/56; PULSE 74; RESP 16; TEMP 36.7; O2SAT 93
--- NOTE | 2025-09-21 22:49 | PC.NURSE ---
Pt unable to answer question Plan of care ongoing.
== END 2025-09-21 22:50 | disposition home or self-care (01) ==
PROVIDERS: Emergency Provider Emergency Medicine
DX: R55 Syncope and collapse (principal); I95.9 Hypotension, unspecified; Z87.891 Personal history of nicotine dependence
CPT/HCPCS: 80053; 83735; 84484; 85025; 87637; 93005; 99284

== ENCOUNTER → 2025-09-21 19:15 | Outpatient (BNV) | payer MEDICARE, MEDICAID, SELFPAY | PROVIDERS: Emergency Provider Emergency Medicine; Visit Provider Internal Medicine | DX: R55 Syncope and collapse (principal) | CPT/HCPCS: 93010 ==